=== PATIENT | female | born 1960 | race Caucasian/White ===

== ENCOUNTER 2021-11-01 12:51 | Emergency (ER) | payer OTHER, SELFPAY ==
[2021-11-01 12:52] VITALS: BP 157/99; PULSE 87; RESP 18; TEMP 36.9; O2SAT 98; BMI 46.5
--- NOTE | 2021-11-01 13:06 | XR_ITS ---
FINAL REPORT CLINICAL HISTORY: fall pain FINDINGS: RIGHT ANKLE Three views were obtained. There is an oblique fracture of the distal fibular metaphysis which is favored to be subacute. The joint spaces appear normal. Lateral soft tissue swelling is noted. There is a plantar calcaneal spur seen. IMPRESSION: Oblique fracture of the distal fibular metaphysis, favored to be subacute with lateral soft tissue swelling. Reviewed, Interpreted and Dictated by Avni De Paz III, MD Transcribed by Mikaela Harmon Authenticated by Avni De Paz III, MD on 11/01/2021 01:58:38 PM [facility]
--- NOTE | 2021-11-01 13:06 | XR_ITS ---
FINAL REPORT CLINICAL HISTORY: fall, pain FINDINGS: LEFT ANKLE Three views were obtained. There is no acute fracture or dislocation. Mild degenerative changes noted. There is a plantar calcaneal spur. There are soft tissue calcifications in the anterior lower leg. IMPRESSION: No acute process. Reviewed, Interpreted and Dictated by Avni De Paz III, MD Transcribed by Mikaela Harmon Authenticated by Avni De aPz III, MD on 11/01/2021 01:58:37 PM [facility]
--- NOTE | 2021-11-01 13:07 | XR_ITS ---
FINAL REPORT CLINICAL HISTORY: fall pain FINDINGS: RIGHT FOOT Three views were obtained. There is an oblique fracture of the distal fibular metaphysis. There is mild degenerative change. A plantar calcaneal spur is noted. No soft tissue abnormality is identified. IMPRESSION: Oblique fracture of the distal fibular metaphysis. Reviewed, Interpreted and Dictated by Avni De Paz III, MD Transcribed by Mikaela Harmon Authenticated by Avni De Paz III, MD on 11/01/2021 01:58:37 PM [facility]
--- NOTE | 2021-11-01 13:07 | XR_ITS ---
FINAL REPORT CLINICAL HISTORY: fall pain FINDINGS: LEFT FOOT Three views were obtained. There is no acute fracture or dislocation. There is mild degenerative change. There is a small plantar calcaneal spur noted. No soft tissue abnormality is identified. IMPRESSION: No acute process. Reviewed, Interpreted and Dictated by Avni De Paz III, MD Transcribed by Mikaela Harmon Authenticated by Avni De Paz III, MD on 11/01/2021 01:58:37 PM [facility]
--- NOTE | 2021-11-01 13:34 | HMH.EDGENADL ---
ED Disposition Clinical Impression: Fibula fracture Qualifiers: Encounter type: initial encounter Fibula location: distal Fracture type: closed Fracture morphology: unspecified fracture morphology Laterality: right Qualified Code(s): S82.831A - Other fracture of upper and lower end of right fibula, initial encounter for closed fracture Sprain of left foot Qualifiers: Encounter type: initial encounter Qualified Code(s): S93.602A - Unspecified sprain of left foot, initial encounter Disposition: Home, Self-Care Condition on Discharge: Good Instructions: DI for Ankle Fracture, DI for Foot Sprain, How to Use a Walking Boot Additional Instructions: Stay off of your injured right ankle is much as possible. Wear orthopedic boot whenever ambulating. Ice and elevate elevate your right lower extremity, ice 20 minutes 4-5 times a day. Percocet as needed for pain. Follow-up with Ortho since he within 1 week. Call today or Thursday to make appointment. Take your x-ray disc with you at the time of follow-up appointment. Additional instructions for CONTROLLED SUBSTANCES: You have been prescribed a medication that is a controlled substance. Controlled substances include pain medications known as opiates and sedative nerve medications known as benzodiazepines. Tramadol, fioricet, and gabapentin are also controlled substances. Some common opiates include: Codeine (such as Tylenol #3) Hydrocodone (Vicodin, Lortab, Lorcet, [place]) Oxycodone (Percocet, Percodan, Oxycodone, Oxy IR) Some common benzodiazepines include: Diazepam (Valium) Lorazepam (Ativan) Alprazolam (Xanax) Clonazepam (Klonopin) Oxazepam (Serax) All of these controlled substances are highly addictive and frequently abused. Misuse can and frequently does lead to addiction as well as overdose and . Medication should be stored in a locked cabinet or other secure storage unit. Do not store the medication in a motor vehicle. Short term supplies, 3 days or less, are prescribed because of the highly addictive nature of the medication. Any of the controlled substance medication NOT taken should be disposed of properly and NOT SAVED. The recommended method of disposing of unused medications is: Place the medicines in a sealable plastic bag. If the medicine is a solid, crush it or add water to dissolve it. Add something undesirable (cat litter, coffee grounds, etc.) Dispose of sealed bag in household trash Do not flush or pour unused medicines down a sink or drain. Controlled substances should not be shared, given away or sold. Because of the addictive nature and frequent abuse, these medications are sometimes stolen. These medications should be kept in a safe place where they cannot be stolen. Do not keep them in your car or purse. Lost or stolen prescriptions for controlled substances WILL NOT BE REFILLED in this emergency department, regardless of whether a police report was filed. Prescriptions: Oxycodone HCl/Acetaminophen [Percocet 5/325mg tablet] 1 tab PO Q6HP PRN #15 tablet PRN Reason: Moderate To Severe Pain Transmission Status: Received by [facility] Referrals: Provider,Referral, [Referring] - - Critical Care Critical Care Time: No Attestation: On 11/01/21, the high probability of a clinically significant, sudden or life threatening deterioration of the following system(s) required my full and direct attention, intervention and personal management. The time I documented below is in addition to time spent performing reported procedures but includes the following listed in this critical care notation. Medical Decision Making - Phill Inquiry Pt receiving controlled substance: Yes Phill was queried for this patient: Yes Risks and benefits of using a controlled substance: were discussed with pt by me Vital Signs: 11/01/21 12:52 Temperature 98.4 F Temperature Source Oral Pulse Rate [Radial] 87 Respiratory Rate 18
[2021-11-01 15:00] VITALS: BP 138/74; PULSE 78; RESP 18; TEMP 36.6; O2SAT 98
== END 2021-11-01 15:00 | disposition home or self-care (01) ==
PROVIDERS: Emergency Provider Emergency Medicine; PCP Pediatrics
DX: S82.831A Other fracture of upper and lower end of right fibula, initial encounter for closed fracture (principal); W10.9XXA Fall (on) (from) unspecified stairs and steps, initial encounter; Y92.019 Unspecified place in single-family (private) house as the place of occurrence of the external cause; K21.9 Gastro-esophageal reflux disease without esophagitis; G43.709 Chronic migraine without aura, not intractable, without status migrainosus; F41.9 Anxiety disorder, unspecified
CPT/HCPCS: 29515; 73610; 73630; 99283

== ENCOUNTER 2023-09-09 18:07 | Outpatient (CLI) | payer OTHER, SELFPAY ==
[2023-09-11 19:09] LABS: Alanine Aminotransferase 22 U/L (12-78); Albumin Level 4.3 g/dl (3.5-5.0); Albumin/Globulin Ratio 1.7 (1.1-1.8); Alkaline Phosphatase 126 U/L (38-126); Anion Gap 11.8 mEq/L (5-15); Aspartate Amino Transferase 52 U/L (14-36); Bilirubin,Total 0.8 mg/dl (0.2-1.3); Blood Urea Nitrogen 12 mg/dl (7-17); Calcium 9.4 mg/dl (8.4-10.2); Carbon Dioxide 24 mmol/L (22.0-30.0); Chloride 100 mmol/L (98-107); Chol/HDL Ratio 1.8 (1-3.5); Cholesterol 184 mg/dl (140-200); Estimated Glomerular Filt Rate 101 ml/min (>60); GFR (African American) 123 ML/MIN (>60); Globulin 2.6 g/dL (1.3-3.2); Glucose 105 mg/dl (74-100); HDL Cholesterol 101 mg/dl (40-60); Potassium 4.8 mmoL/L (3.5-5.1); Sodium 131 mmol/L (136-145); Total Protein,Serum 6.9 g/dl (6.3-8.2); Triglycerides 65 mg/dl (30-150); VLDL Cholesterol 13 mg/dL (0-40)
[2023-09-11 19:21] LABS: Direct LDL Cholesterol 61.72 mg/dL (100-129)
[2023-09-11 19:24] LABS: 25-OH Vitamin D, Total 32.1 ng/mL (30-100)
[2023-09-11 19:40] LABS: Thyroid Stimulating Hormone 2.15 uIU/mL (0.465-4.68)
[2023-09-11 20:01] LABS: Vitamin B12 < 159 pg/mL (239-931)
[2023-09-11 21:04] LABS: Creatinine,Urine Random 41 mg/dL (Not Estab.); Microalbumin < 6.000 mg/L (0-16.7)
== END 2023-09-09 23:59 ==
LOC: LAB.DROPOF 09-11 18:07
PROVIDERS: PCP Nurse Practitioner; Visit Provider Nurse Practitioner
DX: I10 Essential (primary) hypertension (principal); E78.5 Hyperlipidemia, unspecified; G89.29 Other chronic pain; M54.50 Low back pain, unspecified; M19.90 Unspecified osteoarthritis, unspecified site; M54.9 Dorsalgia, unspecified; M25.561 Pain in right knee; M25.562 Pain in left knee; E53.8 Deficiency of other specified B group vitamins; E66.9 Obesity, unspecified; Z68.43 Body mass index [BMI] 50.0-59.9, adult; Z79.899 Other long term (current) drug therapy
CPT/HCPCS: 80053; 80061; 82043; 82306; 82570; 82607; 84443

== ENCOUNTER 2023-09-21 18:17 | Outpatient (CLI) | payer OTHER, MEDICAID, SELFPAY ==
[2023-09-21 18:29] LABS: Basophils % 0.4 % (0.1-2.0); Eosinophils # 0.3 K/mm3 (0.0-0.4); Eosinophils % 4.6 % (0.1-12.0); Hematocrit 36.5 % (37.0-47.0); Hemoglobin 11.6 g/dL (12.2-16.2); Lymphocytes # 1.3 K/mm3 (0.7-4.5); Lymphocytes % 21.3 % (10-50); Mean Corpuscular HGB Conc 31.7 g/dL (31.8-35.4); Mean Corpuscular Hemoglobin 29.7 pg (27.0-31.2); Monocytes # 0.4 K/mm3 (0.1-1.0); Monocytes % 6.3 % (1.7-9.3); Neutrophils # 4.2 K/mm3 (1.8-7.8); Neutrophils % 67.5 % (37.0-80.0); Platelet Count 295 K/mm3 (142-424); Red Blood Count 3.89 M/mm3 (4.20-5.40); Red Cell Distribution Width 15.5 % (11.5-17.5); White Blood Count 6.2 K/mm3 (4.8-10.8)
[2023-09-21 19:17] LABS: Hemoglobin A1C 5.3 % (4.0-6.0)
== END 2023-09-21 23:59 ==
PROVIDERS: PCP Nurse Practitioner; Visit Provider Nurse Practitioner
DX: I10 Essential (primary) hypertension (principal); E78.5 Hyperlipidemia, unspecified; E66.9 Obesity, unspecified; G89.29 Other chronic pain; M54.9 Dorsalgia, unspecified; M19.90 Unspecified osteoarthritis, unspecified site; Z68.43 Body mass index [BMI] 50.0-59.9, adult
CPT/HCPCS: 83036; 85025

== ENCOUNTER → 2023-10-15 14:00 | Outpatient (CLI) | payer OTHER, MEDICAID, SELFPAY | LOC: SL 14:01 | PROVIDERS: PCP Nurse Practitioner; Visit Provider Nurse Practitioner | DX: G47.33 Obstructive sleep apnea (adult) (pediatric) (principal); G47.36 Sleep related hypoventilation in conditions classified elsewhere; G47.00 Insomnia, unspecified; E66.9 Obesity, unspecified; Z68.43 Body mass index [BMI] 50.0-59.9, adult | CPT/HCPCS: G0399 ==

== ENCOUNTER 2023-10-26 07:26 | Outpatient (CLI) | payer OTHER, MEDICAID, SELFPAY ==
--- NOTE | 2023-10-26 07:29 | FL_ITS ---
FINAL REPORT CLINICAL HISTORY: diarrhea, weight gain hx of gastric bypass 3.41 min DAP 9120.19 FINDINGS: UPPER GI WITH SBFT HISTORY: Acute epigastric pain with diarrhea. Weight gain. PROCEDURE: The patient ingested barium. Spot and overhead films were obtained. Additional barium was administered for a SBFT. Number of images: 32 Fluoro time: 3 minutes 41 seconds DAP: 9120.19 uGym2. FINDINGS: UGI: The esophagus is normal. There is no hiatal hernia. There was minimal gastroesophageal reflux to the midesophagus. Esophageal dysmotility was demonstrated during the exam. The rugal fold pattern of the stomach is normal. The duodenal bulb is normal. SBFT: The ic engineer film is normal. There is no evidence of obstruction. The mucosal fold pattern is normal. The terminal ilium is normal. IMPRESSION: Esophageal dysmotility. Minimal gastroesophageal reflux. Unremarkable small bowel follow-through. Films reviewed , interpreted and dictated by Dr. Dee. Transcribed by Oj Aguiar PA-C Reviewed, Interpreted and Dictated by Nicanor Dee MD Transcribed by ENIO Peterson Authenticated and [facility]
[2023-10-26] MEDS: BARIUM SULFATE (E-Z-HD 340GM);135ML BOTTLE 135 ML PO (10:38)
[2023-10-26] MEDS: BARIUM SULFATE(LIQUID E-Z-PAQUE);355ML BOTTLE 355 ML PO (10:38)
[2023-10-26] MEDS: DIATRIZOATE MEG 66% & DIATRIZOATE NA 10% 30ML UDC 15 ML PO (10:38)
== END 2023-10-26 23:59 | disposition home or self-care (01) ==
LOC: RAD 07:26
PROVIDERS: PCP Nurse Practitioner; Visit Provider Family Medicine
DX: Z98.84 Bariatric surgery status (principal)
CPT/HCPCS: 74246; 74248

== ENCOUNTER 2024-02-18 19:55 | Outpatient (CLI) | payer OTHER, MEDICAID, SELFPAY ==
[2024-02-18 20:31] LABS: Basophils % 0.3 % (0.1-2.0); Eosinophils # 0.2 K/mm3 (0.0-0.4); Hematocrit 36.9 % (37.0-47.0); Hemoglobin 11.8 g/dL (12.2-16.2); Lymphocytes # 1.2 K/mm3 (0.7-4.5); Lymphocytes % 22.8 % (10-50); Mean Corpuscular Hemoglobin 28.7 pg (27.0-31.2); Mean Corpuscular Volume 89.7 fl (81-99); Mean Platelet Volume 9.3 fl (7.4-10.4); Monocytes # 0.3 K/mm3 (0.1-1.0); Neutrophils # 3.5 K/mm3 (1.8-7.8); Neutrophils % 66.9 % (37.0-80.0); Platelet Count 303 K/mm3 (142-424); Red Blood Count 4.11 M/mm3 (4.20-5.40); Red Cell Distribution Width 15.8 % (11.5-17.5); White Blood Count 5.2 K/mm3 (4.8-10.8)
[2024-02-18 21:30] LABS: Alanine Aminotransferase 20 U/L (12-78); Albumin Level 3.8 g/dl (3.5-5.0); Albumin/Globulin Ratio 1.4 (1.1-1.8); Alkaline Phosphatase 115 U/L (38-126); Anion Gap 9.7 mEq/L (5-15); Aspartate Amino Transferase 24 U/L (14-36); Bilirubin,Total 0.6 mg/dl (0.2-1.3); Blood Urea Nitrogen 10 mg/dl (7-17); Calcium 9.1 mg/dl (8.4-10.2); Carbon Dioxide 28 mmol/L (22.0-30.0); Chloride 98 mmol/L (98-107); Chol/HDL Ratio 1.5 (1-3.5); Cholesterol 153 mg/dl (140-200); Estimated Glomerular Filt Rate 125 ml/min (>60); GFR (African American) 151 ML/MIN (>60); Globulin 2.7 g/dL (1.3-3.2); Glucose 105 mg/dl (74-100); HDL Cholesterol 102 mg/dl (40-60); Potassium 4.7 mmoL/L (3.5-5.1); Sodium 131 mmol/L (136-145); Total Protein,Serum 6.5 g/dl (6.3-8.2); Triglycerides 66 mg/dl (30-150); VLDL Cholesterol 13 mg/dL (0-40)
[2024-02-18 21:41] LABS: Direct LDL Cholesterol 41.58 mg/dL (100-129)
[2024-02-18 21:45] LABS: 25-OH Vitamin D, Total 18.8 ng/mL (30-100)
[2024-02-18 22:18] LABS: Vitamin B12 256 pg/mL (239-931)
== END 2024-02-18 23:59 | disposition home or self-care (01) ==
LOC: LAB.DROPOF 19:57
PROVIDERS: PCP Nurse Practitioner; Visit Provider Nurse Practitioner
DX: I10 Essential (primary) hypertension (principal); E78.5 Hyperlipidemia, unspecified; E66.2 Morbid (severe) obesity with alveolar hypoventilation; Z68.43 Body mass index [BMI] 50.0-59.9, adult; M19.90 Unspecified osteoarthritis, unspecified site; E53.8 Deficiency of other specified B group vitamins
CPT/HCPCS: 80053; 80061; 82306; 82607; 85025

== ENCOUNTER 2024-04-11 09:29 | Outpatient (CLI) | payer OTHER, MEDICAID, SELFPAY ==
--- NOTE | 2024-04-11 09:29 | MM_ITS ---
PROCEDURE INFORMATION: Exam: MG Bilateral Screening 3D Mammography Exam date and time: 04/11/2024 9:37 AM Age: 64 years old Clinical indication: Screening exam. TECHNIQUE: Imaging protocol: Bilateral Screening tomosynthesis and 2D mammography including computer-aided detection (CAD) when performed. COMPARISON: No relevant prior studies available. FINDINGS: MAMMOGRAPHY: Breast composition: There are scattered areas of fibroglandular density. Mass: No suspicious masses. Architectural distortion: None. Calcifications: No suspicious calcifications. Asymmetric density: None. Skin thickening: None. Axillary adenopathy: None. IMPRESSION: No mammographic evidence of malignancy. Annual screening is recommended unless otherwise clinically indicated. ASSESSMENT: BI-RADS Category 1: Negative.
== END 2024-04-11 23:59 | disposition home or self-care (01) ==
LOC: RAD 09:29
PROVIDERS: PCP Family Medicine; Visit Provider Family Medicine
DX: Z12.31 Encounter for screening mammogram for malignant neoplasm of breast (principal)
CPT/HCPCS: 77063; 77067

== ENCOUNTER 2024-06-06 12:50 | Outpatient (CLI) | payer OTHER, MEDICAID, SELFPAY ==
--- NOTE | 2024-06-06 | CA_ITS ---
APPROVED REPORT Exam: Pharmacologic Technologist: Kay Lopez Ht: 5 ft 6 in Wt: 364 lbs BSA: 2.58 m2 HR: 86 bpm BP: 155/64 mmHg Stress Test Details Test: Lexiscan HR Resting HR: 86 bpm Max Heart Rate (APMHR): 157.394424 bpm Max HR Achieved: 97 bpm Target HR (85% APMHR): 133.794343 bpm % of APMHR: 61.78 Recovery HR: 92 bpm BP Resting BP: 155.0/64.0 mmHg Max BP: 155.0/64.0 mmHg Recovery BP: 137.0/59.0 mmHg ECG Resting ECG: Sinus rhythm Stress ECG Conclusion Symptoms: None Arrhythmias/Ectopy: None ST-T Changes: None Electronically signed by : Christin Zimmerman MD 06/07/2024 11:45:16
--- NOTE | 2024-06-06 12:51 | NM_ITS ---
APPROVED REPORT Exam: Nuclear Stress Test Indication: htn, c.p., sob Patient Location: Outpatient Stress Tech: Kay Lopez NM Tech:Carrie Shaw NAVDEEP RT (R)(N)(M) Ht: 5 ft 6 in Wt: 360 lbs Bra Size: 54c HR: 89 bpm BP: 155/64 mmHg BSA: 2.57 m2 TID: 1.11 BMI: 58.0 History: htn, c.p., sob pt can not lay on tomach for prone images Procedure: Patient received 0.4 mg of intravenous Lexiscan, resting heart rate 89 bpm, resting blood pressure 155/64 mmHg, with Lexiscan maximum heart rate achieved was 97 bpm which is % of the maximum predicted heart rate and blood pressure was 141/64 mmHg. With Lexiscan, patient denied any complaint of chest pain. Cardiac Stress and Resting SPECT Images: Cardiac Stress and Resting SPECT images were obtained using technetium 99m Myoview 32.1 mCi stress and 10.28 mCi at rest. The patient could not lie on her abdomen. Therefore, prone stress imaging could not be performed. This may affect the diagnostic interpretation of the study findings. Resting and stress imaging in supine positions demonstrate no evidence of fixed or reversible perfusion defects. Gated imaging demonstrates normal global and regional LV systolic function. LVEF is calculated at 67%. Conclusion: No evidence of fixed or reversible perfusion defects. Gated imaging demonstrates normal global and regional LV systolic function. LVEF is calculated at 67%. Electronically signed by : Christin Zimmerman MD 06/07/2024 11:46:17
--- NOTE | 2024-06-06 12:51 | XR_ITS ---
PROCEDURE INFORMATION: Exam: XR Chest Exam date and time: 06/06/2024 1:12 PM Age: 64 years old Clinical indication: Pain; Other: Cp; Additional info: Chest pain TECHNIQUE: Imaging protocol: Radiologic exam of the chest. Views: 2 views. COMPARISON: CR FL UPPER GI SMALL BOWEL 10/26/2023 9:58 AM FINDINGS: Lungs: Lungs are well aerated without a focal area of consolidation. Lungs are well aerated without a focal area of consolidation. Pleural spaces: Unremarkable. No pleural effusion. No pneumothorax. Heart/Mediastinum: The cardiac silhouette is enlarged, Bones/joints: Unremarkable. Soft tissues: Mild soft tissue prominence in the right paratracheal region likely related to positioning. Follow-up suggested. IMPRESSION: Lungs are well aerated without a focal area of consolidation. See above. Consider short-term follow-up.
[2024-06-06] MEDS: SODIUM CHLORIDE 0.9% 10ML SYR (RAD ONLY) 10 ML IV ×2 (13:10→14:15)
[2024-06-06] MEDS: REGADENOSON 0.4MG/5ML SYRINGE 0.4 MG IV (14:15)
[2024-06-06] MEDS: ISOTOPE MYOVIEW (PER STUDY) 1 DOSE IV (14:49)
== END 2024-06-06 23:59 | disposition home or self-care (01) ==
LOC: RAD 12:51
PROVIDERS: PCP Family Medicine; Visit Provider Family Medicine
DX: R06.00 Dyspnea, unspecified (principal); R07.9 Chest pain, unspecified
CPT/HCPCS: 71046; 78452; 93017; 93018; A9502; J2785

== ENCOUNTER 2024-07-11 14:22 | Outpatient (CLI) | payer OTHER, MEDICAID, SELFPAY ==
[2024-07-11 15:25] VITALS: PULSE 87; PULSE 92
[2024-07-11] MEDS: ALBUTEROL 0.083% 2.5 MG/3 ML NEB IH (15:30)
== END 2024-07-11 23:59 | disposition home or self-care (01) ==
LOC: RT 14:22
PROVIDERS: PCP Family Medicine; Visit Provider Nurse Practitioner Family
DX: R06.00 Dyspnea, unspecified (principal)
CPT/HCPCS: 94060; 94640; 94727; 94729; J7613

== ENCOUNTER 2024-08-08 11:10 | Outpatient (CLI) | payer MEDICAID, SELFPAY ==
--- NOTE | 2024-08-08 11:13 | XR_ITS ---
FINAL REPORT CLINICAL HISTORY: Foot pain sore of right foot x 4 month 1 previous ankle surgery COMPARISON: None FINDINGS: RIGHT FOOT 3 views of the right foot were obtained. There is no acute fracture or dislocation. There is an orthopedic sideplate and screws present in the distal fibula. A moderate-sized plantar spur is identified. Visualized joint spaces are normally aligned. Soft tissues are unremarkable. IMPRESSION: No acute bony abnormality. Reviewed, Interpreted and Dictated by Nicanor Dee MD Transcribed by Vale Degroot Authenticated and [facility]
== END 2024-08-08 23:59 | disposition home or self-care (01) ==
LOC: RAD 11:11
PROVIDERS: PCP Family Medicine; Visit Provider Podiatrist
DX: M79.671 Pain in right foot (principal)
CPT/HCPCS: 73630

== ENCOUNTER 2024-09-02 11:51 | Outpatient (CLI) | payer MEDICAID, SELFPAY ==
[2024-09-02 11:54] LABS: Anti-Centromere B Antibodies ND; Anti-DNA (DS) Ab Qn ND; Anti-Jo-1 ND; Antichromatin Antibodies ND; Antiscleroderma-70 Antibodies ND; RNP Antibodies ND; Sjogren's Anti-SS-A ND; Sjogren's Anti-SS-B ND
[2024-09-02 21:35] LABS: C-Reactive Protein 1.6 mg/L (0-4)
[2024-09-05 13:10] LABS: Antinuclear Antibodies (ANA) Negative (Negative)
[2024-09-06 20:21] LABS: Rheumatoid Factor IGM < 7 U (<7)
== END 2024-09-02 23:59 | disposition home or self-care (01) ==
LOC: LAB 11:52
PROVIDERS: PCP Family Medicine; Visit Provider Internal Medicine Pulmonary Disease
DX: J84.9 Interstitial pulmonary disease, unspecified (principal); R06.09 Other forms of dyspnea
CPT/HCPCS: 36415; 86038; 86140; 86225; 86235; 86431

== ENCOUNTER 2024-11-14 12:49 | Outpatient (CLI) | payer MEDICAID, SELFPAY ==
--- NOTE | 2024-11-14 13:00 | CT_ITS ---
FINAL REPORT TECHNIQUE: Thin section axial images were obtained from the lung apices through the upper abdomen without contrast. This study was performed with techniques to keep radiation doses as low as reasonably achievable (ALARA). Individualized dose reduction techniques using automated exposure control or adjustment of mA and/or kV according to the patient's size were employed. CLINICAL HISTORY: .INTERSTITIAL LUNG DISEASE COMPARISON: None FINDINGS: HIGH RESOLUTION CT CHEST: There is no mediastinal, hilar, or axillary lymphadenopathy. No pleural or pericardial effusion. The lungs are clear. There is evidence of prior granulomatous disease. No consolidation is present. High-resolution images using supine inspiration, supine expiration, and prone inspiration views were obtained. There is no interlobular septal thickening, no evidence of fibrosis or bronchiectasis. No air trapping is noted. Limited, unenhanced evaluation of the upper abdomen is without acute abnormality. There are postoperative changes present in the stomach. There is no acute osseous abnormality. IMPRESSION: No acute intrathoracic abnormality. High-resolution images reveal no interlobular septal thickening, no evidence of interstitial fibrosis, bronchiectasis, or air trapping. Reviewed, Interpreted and Dictated by Layne Contreras MD Transcribed by Vale Degroot Authenticated and [facility]
== END 2024-11-14 23:59 | disposition home or self-care (01) ==
LOC: RAD 12:50
PROVIDERS: PCP Family Medicine; Visit Provider Internal Medicine Pulmonary Disease
DX: J84.9 Interstitial pulmonary disease, unspecified (principal)
CPT/HCPCS: 71250

== ENCOUNTER 2024-12-13 12:48 | Outpatient (CLI) | payer MEDICAID, SELFPAY ==
[2024-12-13 14:05] VITALS: BMI 60.5
== END 2024-12-13 23:59 | disposition home or self-care (01) ==
LOC: DIETICIAN 12:49
PROVIDERS: PCP Family Medicine; Visit Provider Nurse Practitioner
DX: G47.33 Obstructive sleep apnea (adult) (pediatric) (principal); E66.9 Obesity, unspecified; Z68.43 Body mass index [BMI] 50.0-59.9, adult
CPT/HCPCS: 97802

== ENCOUNTER 2025-01-02 10:12 | Outpatient (CLI) | payer MEDICAID, SELFPAY ==
--- OUTSIDE RECORDS SUMMARY | 2013-04-26 20:00 | XMS_ITS | Continuity of Care Document ---
Author Organization [facility] Practice Address [address] [place] [address] Care Team Providers Care Licensed Loan Officer Assistant Name Role Phone Wagner Liu MD Unavailable Unavailable Advance Directives Directive Yes / No Effective Date File Name No Information Encounters Encounter Description Practice Location Reason(s) For Visit Diagnoses Date Provider Providers Copied on Encounter [facility], [facility] [facility] [address], [place], [place], [id number], [place] [facility] [address] No Information Noe Edward. [address] [facility], [place], [place], [id number], [place]. tel:[phone] Family History Family Member Type Diagnosis Age At Onset MOTHER Problem (finding) diabetes GRANDPARENT Problem (finding) diabetes Payers Payer name Insurance type Covered constitution party ID Authoriza tion(s) No Information Social History Type Description Quantity Date Captured Comments Sex Female Smoking Status No Information Chief Complaint And Reason For Visit No Information Reason For Referral Reason For Referral No Information History Of Present Illness Encounter Date Complaint History Of Prese nt Illness No Information Functional Status Date Functional Assessmen t No Information Instructions Date Instruction Additional Infor mation No Information Assessments Type Assessment Date No Information Patient Care Teams Name Effective Dates (start - stop) Status Members No Information
--- OUTSIDE RECORDS SUMMARY | 2023-04-27 08:00 | XMS_ITS | Encounter Summary ---
Author Organization [place] [address] Care Team Providers Care Ad Trafficker Name Role Phone Judy Mars APRN Primary Care Provider [phone] Reason for Visit * Oncology Medication Prior Authorization (Routine) - Closed Specialty Diagnoses / Procedures Referred By Contac t Referred To Contact Oncology Diagnoses Postsurgical malabsorption Iron deficiency anemia, unspecified iron deficiency anemia type H/O: iron deficiency anemia S/P gastric bypass Procedures [place] IRON SUCROSE INJECTION Judy Mars APRN [address] [place] [address] Phone: tel: fax: [address] [place] [address] Phone: tel: fax: Referral ID Status Reason Start Date Expiration Date Visits Re quested Visits Authorized [id number] Closed 03/05/2023 03/04/2024 1 99 Encounter Details Date Type Department Care Team (Late st Contact Info) Description 04/27/2023 8:00 AM EDT Hospital Encounter [address] [place] [address] Excused Social History Tobacco Use [...] Date Recorded PHQ-2 Total Score 0 10/17/2022 [facility] of Occupat ional [facility] - Occupational Stress Questionnaire Answer Date [...] Care Team (Late st Contact Info) Description 02/28/2025 3:30 PM EDT Office Visit [facility] [address] [place] [address] Hodan Hinkle APRN [address] [place] [address] documented as of this encounter [...] on filedocumented in this encounter Care Teams Ad Trafficker Relationship Specialty Start Date End Date Judy Mars APRN [address] [place] [address] PCP - General Nurse Practitioner-Family 07/17/1709/12 documented as of this encounter
[2025-01-02 18:24] LABS: Basophils % 0.5 % (0.1-2.0); Eosinophils % 4.6 % (0.1-12.0); Hematocrit 31.9 % (37.0-47.0); Hemoglobin 9.6 g/dL (12.2-16.2); Lymphocytes % 16.6 % (10-50); Mean Corpuscular HGB Conc 30.1 g/dL (31.8-35.4); Mean Corpuscular Hemoglobin 23.5 pg (27.0-31.2); Mean Corpuscular Volume 78.2 fl (81-99); Monocytes % 6.9 % (1.7-9.3); Neutrophils % 70.9 % (37.0-80.0); Platelet Count 298 K/mm3 (142-424); Red Blood Count 4.08 M/mm3 (4.20-5.40); Red Cell Distribution Width 18.3 % (11.5-17.5); Red Cell Distribution Width-SD 50.9 fL; White Blood Count 5.7 K/mm3 (4.8-10.8)
[2025-01-02 18:25] LABS: Eosinophils # 0.3 Kmm3 (0.0-0.4); Immature Granulocytes # 0.03 10^3uL; Immature Granulocytes % 0.5 %; Lymphocytes # 0.9 K/mm3 (0.7-4.5); Monocytes # 0.4 K/mm3 (0.1-1.0); Nucleated Red Blood Cells # 0 10^3/uL; Nucleated Red Blood Cells % 0 %
[2025-01-02 18:54] LABS: Alanine Aminotransferase 16 U/L (12-78); Albumin Level 4.5 g/dl (3.5-5.0); Albumin/Globulin Ratio 1.6 (1.1-1.8); Alkaline Phosphatase 121 U/L (38-126); Anion Gap 7.9 mEq/L (5-15); Aspartate Amino Transferase 23 U/L (14-36); Bilirubin,Total 0.7 mg/dl (0.2-1.3); Blood Urea Nitrogen 8 mg/dl (7-17); Calcium 9.6 mg/dl (8.4-10.2); Carbon Dioxide 29 mmol/L (22.0-30.0); Chloride 92 mmol/L (98-107); Cholesterol 171 mg/dl (140-200); Estimated Glomerular Filt Rate 101 ml/min (>60); GFR (African American) 122 ML/MIN (>60); Globulin 2.9 g/dL (1.3-3.2); Glucose 113 mg/dl (74-100); Potassium 4.9 mmoL/L (3.5-5.1); Sodium 124 mmol/L (136-145); Total Protein,Serum 7.4 g/dl (6.3-8.2); Triglycerides 61 mg/dl (30-150); VLDL Cholesterol 12 mg/dL (0-40)
[2025-01-02 19:07] LABS: Direct LDL Cholesterol 40.96 mg/dL (100-129)
[2025-01-02 19:10] LABS: Creatinine,Urine Random 57 mg/dL (Not Estab.); Microalbumin < 6.000 mg/L (0-16.7)
[2025-01-02 19:13] LABS: 25-OH Vitamin D, Total 21.6 ng/mL (30-100)
[2025-01-02 19:25] LABS: Thyroid Stimulating Hormone 3.06 uIU/mL (0.465-4.68)
[2025-01-02 19:35] LABS: HIV Combo NEGATIVE (Negative)
[2025-01-02 19:42] LABS: Hepatitis C Ab Qual. W/ RFX NEGATIVE (Negative)
[2025-01-02 19:44] LABS: Vitamin B12 414 pg/mL (239-931)
[2025-01-02 20:08] LABS: Hemoglobin A1C 6.2 % (4.0-6.0)
[2025-01-02 22:30] LABS: Chol/HDL Ratio 1.6 (1-3.5); HDL Cholesterol 109 mg/dl (40-60)
[2025-01-04 05:10] LABS: Hepatitis B Surface Antigen Negative (Negative)
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
--- OUTSIDE RECORDS SUMMARY | 2025-01-04 10:15 | XMS_ITS | Encounter Summary ---
Author Organization [place] [address] Care Team Providers Care Art Instructor Name Role Phone Heidi Childress APRN Primary Care Provider [phone] Reason for Visit * Reason Comments Medication Refill Encounter Details Date Type Department Care Team (Late st Contact Info) Description 11/07/2024 Refill [facility] Infectious Disease [facility] [address] [facility] [address] [place] [id number] Sierra Childress, [address] [place] [address] Medication Refill Social History Tobacco Use Types Packs/Day Years [...] Date Recorded PHQ-2 Total Score 0 10/17/2022 [facility] - Occupational Stress Questionnaire Answer Date Recorded [...] of Assessment Author No 10/17/2022 7:59 AM Vinaey Wiggins CCMA * Because of a physical, mental or emotional condition, does this person have difficulty doing errands alone such as visiting a doctor's office or shopping? Answer Date of Assessment Author No 10/17/2022 7:59 AM Vianey Wiggins CCMA documented as of this encounter Mental [...] Description 02/28/2025 3:30 PM EDT Office Visit Nicole CHAVEZ [address] [place] [address] Hodan Hinkle APRN [address] [place] [address] documented as of this encounter [...] documented as of this encounter Visit Diagnoses Diagnosis Peripheral edema Edema Pulmonary hypertension (HCC) Other chronic pulmonary heart diseases documented in this encounter Care Teams Art Instructor Relationship Specialty Start Date End Date Heidi Childress APRN [address] [facility] [address] [place] [address] PCP - General Nurse Practitioner 12/04/23 documented as of this encounter
--- OUTSIDE RECORDS SUMMARY | 2025-01-04 10:15 | XMS_ITS | Clinical Summary ---
Author Organization [facility] BUSINESS OFFICE Address [address] [address] Care Team Providers Care Government Professor Name Role Phone Heidi Childress APRN Primary Care Provider [phone] Allergies Active Allergy Reactions Criticality Noted Date Comments Morphine Nausea And Vomiting High 06/30/2017 Medications nystatin (MYCOSTATIN) Top Powder Apply topically 3 times daily for 14 days. 15 g 2 2 Active cyanocobalamin 100 mcg Oral Tablet Take 1 Tablet by mouth once daily. 30 Tablet 3 3 Active buPROPion (WELLBUTRIN XL) 150 mg Oral Tablet Sustained Release 24 hrIndications:Moo d disorder,Bipolar disorder, current episode depressed, moderate (HCC) Take 1 Tablet by mouth every morning. 90 Tablet 3 3 Active atorvastatin (LIPITOR) 10 mg Oral TabletIndications :Bilateral carotid artery stenosis Take 1 Tablet by mouth daily. 90 Tablet 3 3 Active hydroCHLOROthiazi de 25 mg Oral TabletIndications :Peripheral edema,Pulmonary hypertension (HCC) Take 1 Tablet by mouth daily. 30 Tablet 2 3 Active cariprazine (VRAYLAR) 1.5 mg Oral CapsuleIndication s:Mood disorder,Bipolar disorder, current episode depressed, moderate (HCC) Take 1 Capsule by mouth daily. 90 Capsule 3 4 Active LORazepam (ATIVAN) 0.5 mg Oral TabletIndications :Generalized anxiety disorder Take 1 Tablet by mouth twice daily as needed for anxiety. NO MORE THAN 45 TABLETS IN 30 DAYS 45 Tablet 4 Active meloxicam (MOBIC) 15 mg Oral TabletIndications :Injury of left knee, initial encounter Take 1 Tablet by mouth once daily. 30 Tablet 2 4 Active cholestyramine (QUESTRAN) 4 gram Oral Powder in PacketIndications :Functional diarrhea,Irritabl e bowel syndrome with diarrhea Take 1 Packet by mouth daily. 90 Packet 3 4 Active diclofenac (VOLTAREN) 1 % Top GelIndications:S/ P total knee arthroplasty, right Apply 2 grams topically twice daily as needed 1 Each 2 4 Active VITAMIN D3 125 mcg (5,000 unit) Oral Tablet Take 1 tablet by mouth once daily. 30 Tablet 2 4 Active ergocalciferol (DRISDOL) 1,250 mcg (50,000 unit) Oral Capsule Take 1 Capsule by mouth once a week. 12 Capsule 4 Active rOPINIRole (REQUIP) 4 mg Oral TabletIndications :Restless legs syndrome (RLS) Take 1 Tablet by mouth nightly. 30 Tablet 4 Active diphenoxylate-atr opine (LOMOTIL) 2.5-0.025 mg Oral TabletIndications :Functional diarrhea,Irritabl e bowel syndrome with diarrhea Take 1 Tablet by mouth 2 times daily. 60 Tablet 5 4 Active Active Problems Problem Noted Date Diagnosed Date Fibula fracture 07/07/2023 Sprain of left foot 07/07/2023 S/P total knee replacement, right 05/15/2023 Pulmonary hypertension 02/18/2023 Overview (03/05/2023): Improved on hctz Encouraged sleep study Bilateral carotid artery stenosis 01/22/2023 Primary osteoarthritis of right knee 01/16/2023 Overview (01/16/2023): Added automatically from request for surgery [id number] Primary osteoarthritis of both knees 01/06/2023 Restless legs syndrome (RLS) 10/17/2022 Heart murmur 10/17/2022 Generalized anxiety disorder 05/21/2021 Overview (07/07/2023): Sig anxiety with traveling. Makes her physically ill. Has seen huge imporvement since starting ativan. Is driving now. Still very difficult to ride as passenger so gave verbal today to take extra dose of ativan if she has to ride with someone. Tried and failed buspar and vistaril CSA on file HB-1 up to date Last Successful PDMP Review: 07/07/2023 2:48 PM by Judy Mars APRN Assessment & Plan (05/21/2021 1:46 PM EST): If drug screen is negative, will send prescription and she will follow-up in one month to determine effectiveness. Chronic diarrhea 07/11/2020 Overview (10/17/2022): Hx of sphincter surgery years ago. S/p gastric bypass Has malabsorption. Followed by GI and now on Lomotil and Questran Iron deficiency anemia, unspecified 04/05/2020 Overview (03/05/2023): S/p gastric bypass with malabsorption, iron infusion ordered H/O: iron deficiency anemia 04/05/2020 Postsurgical nonabsorption 04/05/2020 Chronic left-sided low back pain with left-sided sciatica 08/10/2018 Overview (08/10/2018): Referral to spine center. Intolerance to NSAIDS. May benefit with trigger injection. Postsurgical malabsorption 07/27/2017 Malnutrition following gastrointestinal surgery 07/22/2017 Vitamin D deficiency 07/21/2017 Overview (03/02/2020): On replacement. Vitamin B12 deficiency 07/21/2017 Overview (10/17/2022): On replacement. Mood disorder 07/17/2017 Overview (05/21/2021): Question if there is some underlying bipolar due to extreme mood changes. Depression controlled with wellbutrin vraylar effective at managing agitation and labile mood. Continue both Failed paxi and viibryd effexor effective in past but didn't like side effects. Assessment & Plan (12/14/2020 11:23 AM EDT): Continue wellbutrin Stop seroquel since her symptoms are worse Given samples of vraylar. If effective, will file PA Referral for counseling. followup in 4-6 weeks. Insomnia 07/17/2017 S/P hysterectomy 07/17/2017 Overview (03/02/2020): Total hysterectomy S/P gastric bypass 07/17/2017 Family history of diabetes mellitus 07/17/2017 Family history of esophageal cancer 07/17/2017 Morbid obesity with BMI of 40.0-44.9, adult 11/2017 Overview (10/17/2022): Discussed lifestyle modiciation. Working on healthier diet. Resolved Problems Problem Noted Date Diagnosed Date Resolved Date Closed displaced fracture of lateral malleolus of right fibula 11/05/2021 10/17/2022 Overview (11/05/2021): Added automatically from request for surgery [id number] Iron deficiency anemia due t o chronic blood loss 07/27/2017 03/01/2020 Iron deficiency anemia 07/17/201710/17 Assessment & Plan (03/02/2020 10:23 AM EDT): Chronic fatigue. No orthostatic symptoms Will get labs from former PCP, [facility]. If sig anemia, will get her set up with iron infusion Elevated blood pressure reading 07/17/2017 08/10/2018 Overview (07/17/2017): Asymptomatic - recheck 4 weeks. Encounters Date Type Department Care Team Description 11/30/2024 Refill [facility] [address] [address] Rob Del Rosario MD Medication Refill 11/07/2024 Refill [facility] [address] [facility] [address] [place] [id number] Sierra Childress, TAMI Medication Refill from Last 3 Months Immunizations Immunization Administration Dates Next Due Hepatitis A, Unspecified Formulation 04/27/2018 Influenza Patient Reported 04/27/2018 Influenza Vaccine Quadrivalent 04/17/2020 Influenza Vaccine Quadrivalent Mdck Cell Derived 04/17/2020 Influenza Vaccine Quadrivalent PF 07/07/2023,09/2017 Influenza Vaccine, Unspecified Formulation 04/27 Influenza Virus Vaccine Quadrivalant, Flublok Moderna SARS-CoV-2 Vaccine 12+ Yrs (Light blue b order) 10/16/2020,09/20/2020 Tdap 10/25/2020 Zoster Recombinant 07/11/2020,04/17/2020 Surgical History Surgery Date Site/Laterality Comments BLADDER SURGERY GASTRIC BYPASS SURGERY 07/13/2002 - 07/12/2003 HYSTERECTOMY, TOTAL ABDOMINAL 07/13/1997 - 07/12/1998 ANKLE SURGERY Left ANUS SURGERY ANKLE FRACTURE SURGERY 11/12/2021 Foot/Ankle/Right Right ankle open reduction internal fixation lateral malleolus fracture; Surgeon: Junior Evans MD; [facility]; Service: Orthopedics Medical devices from this surgery are in the Medical Devices section. COLONOSCOPY TOTAL KNEE ARTHROPLASTY 03/18/2023 Knee/Right RIGHT TOTAL KNEE ARTHROPLASTY; Surgeon: Trevor Lopez MD; Location: [facility]; Service: Orthopedics Medical devices from this surgery are in the Medical Devices section. Medical History Medical History Date Comments Anemia Depression Anxiety RLS (restless legs syndrome) Chronic diarrhea s/p gastric byp ass Chronic back pain s/p injection, ablation. Hx of migraines Hiatal hernia Hypertension Hyperlipidemia Carotid artery occlusion 01/21/2023 1-39 % ( bilateral ) Irritable bowel syndrome chronic diarrhea Arthritis Family History Medical History Relation Name Comments Depression Brother No Known Problems Father Diabetes Maternal Grandfather Emphysema Maternal Grandfather Diabetes Mother Mental Illness Mother Diabetes Paternal Grandmother eye sig ht loss, amputations. Esophageal Cancer Sister age 5 6 Relation Name Status Comments Brother Alive Father Alive Maternal Grandfather Maternal Grandmother Mother Alive Paternal Grandfather Paternal Grandmother Sister Social History Tobacco Use Types Packs/Day Years Used Date Smoking Tobacco: Never Smokeless Tobacco: Never Tobacco Cessation:Counseling Given: Not Answered Alcohol Use Standard Drinks/Week Comments No 0 (1 standard drink = 0.6 oz pur e alcohol) Overall Financial Resource Strain (CARDIA) Answe r Date Recorded How hard is it for you to pa y for the very basics like food, housing, medical care, and heating? Very hard 11/05/2020 PHQ-2 Answer Date Recorded PHQ-2 Total Score 0 10/17/2022 [facility] - Occupational Stress Questionnaire Answer Date Recorded [...] on file Sexual Orientation Not on file Obstetrics History Last Filed Vital Signs Vital Sign Reading Time Taken Comments Blood Pressure 149/84 11/02/2023 8:45 AM EDT Pulse 82 11/02/2023 8:45 AM EDT Temperature 35.7 C (96.3 F) 11/02/2023 8:45 AM EDT Respiratory Rate 16 11/02/2023 8:45 AM EDT Oxygen Saturation 98% 07/07/2023 2:34 PM EST Inhaled Oxygen Concentration - - Weight 151 kg (333 lb) 08/24/2024 2:43 PM EST Height 167.6 cm (5' 6 ) 08/24/2024 2:43 PM EST Body Mass Index 53.75 08/24/2024 2:43 PM EST Plan of Treatment Upcoming Encounters Date Type Department Care Team (Late st Contact Info) Description 02/28/2025 3:30 PM EDT Office Visit Nicole [address]ITH [address] [place] [address] Hodan Hinkle APRN [address] [place] [address] Health Maintenance Due Date Last Done Comments Cologuard 2006 FIT 2006 Sigmoidoscopy 2006 Virtual Colonography 2006 Pneumococcal Vaccine 50+ (1 of 1 - PCV) 2011 Breast Cancer Screening 07/16/2012 07/16/2010, 01/06 RSV or 60+ (1 - Risk 60-74 years 1-dose series) 2021 Colon Cancer Screening 08/15/2023 Colonoscopy 08/15/2023 08/15/2020 Annual Wellness Exam 10/18/2023 10/17/2022, 07/17/19 18 COVID-19 Vaccine ( season) 2024 10/16/2020, 09/20/2020 DTaP/TDaP/Td (2 - Td or Tdap) 10/25/2030 10/25/2020 Hepatitis C Screening Completed 08/10/2018, 018 Zoster Completed 07/11/2020, 04/17/2020 Influenza Vaccine Completed 05/25/2024, , 05/14/2022, Additional history exists Hepatitis B Vaccine Aged Out No longe r eligible based on patient's age to complete this topic Meningococcal B Vaccine Aged Out No l onger eligible based on patient's age to complete this topic Goals Goal Patient Goal Type Associated Problems [...] 3x wk, perform non weight bearing exercises Medical Devices Implanted Type Area Fire Official Device Identifier Shelf Expiration Date Model / Serial / Lot Plate Tightrp 72mm F/Syndsms Rpr 6hl Lck Ankl/Ft Delt Ligmt - [id number] Implanted:Qty: 1 on 11/12/2021 at [facility] Right: Ankle ARTHREX AR-8943T- 06 / / Screw 3.5x14mm Nlckg Aftab Scr Ft Sd Clav Ankl T15 Hxlb - [id number] Implanted:Qty: 2 on 11/12/2021 at [facility] Right: Ankle ARTHREX AR-8835-1 4 / / Screw 3.5x16mm Nlckg Aftab Scr Ft Sd Clav Ankl T15 Hxlb - [id number] Implanted:Qty: 1 on 11/12/2021 at [facility] Right: Ankle ARTHREX AR-8835-1 6 / / Screw 3.5x18mm Nlckg Aftab Scr Ft Sd Clav Ankl T15 Hxlb - [id number] Implanted:Qty: 1 on 11/12/2021 at [facility] Right: Ankle ARTHREX AR-8835-1 8 / / Screw 3.5x14mm Lck Aftab Scr Ft Sd Clav Ankl T15 Hxlb Drv - [id number] Implanted:Qty: 1 on 11/12/2021 at [facility] Right: Ankle ARTHREX AR-8835L- 14 / / Screw 3.5x16mm Lck Aftab Scr Ft Sd Clav Ankl T15 Hxlb Drv - [id number] Implanted:Qty: 1 on 11/12/2021 at [facility] Right: Ankle ARTHREX AR-8835L- 16 / / Gmk Tibial Tray Cemented Right S3 - [id number] Implanted:Qty: 1 on 03/18/2023 by Trevor Lopez MD at [facility] Right: Knee [employer]A [id number] 11/18/2027 02.07.120 3R / / [id number] Insert Tibial Gmk-Sphere E-Cross Flex Cr 3r-10mm - [id number] Implanted:Qty: 1 on 03/18/2023 by Trevor Lopez MD at [facility] Right: Knee [employer]ACTA [id number] 03/02/2027 02.12.E03 10CRR / / [id number] Cement Bone Full Pack- [employer] Simplex - [id number] Implanted:Qty: 2 on 03/18/2023 by Trevor Lopez MD at [facility] Right: Knee TONY:ORTHOPED ICS [id number] 05/12/2025 6191-1-01 0 / / [id number] Sphere Femur Cemented Right S3 + - [id number] Implanted:Qty: 1 on 03/18/2023 by Trevor Lopez MD at [facility] Right: Knee [employer]ACTA [id number] 11/27/2027 02.12.002 3R / / [id number] Insert Patella Resurfacing Gmk-Sphere E-Cross Size 2 - [id number] Implanted:Qty: 1 on 03/18/2023 by Trevor Lopez MD at [facility] Right: Knee MEDACTA [id number] 01/04/2028 02.12.E00 2RP / / [id number] Procedures Procedure Name Priority Date/Time Associated Diagnosis Comments COLONOSCOPY Routine 08/15/2020 ACUTE HEPATITIS PANEL Routine 08/10/2018 4:16 PM EST Exposure to hepatitis MM MAMMO DIGITAL SCREENING W CAD BILAT Routine 07/16/2010 11:05 AM EST Other screening mammogram from Last 3 Months or Most Recently Relevant to Health Maintenance Results * COLONOSCOPY (08/15/2020) us Historical Provider HEALTH MAINTENANCE Final Res ult [facility] OFFICE * ACUTE HEPATITIS PANEL (08/10/2018 4:16 PM EST) Hep Bs Ag Non-Reacti ve Non-Reacti ve 08/10/2018 9:11 PM EST [facility] Hep B Core IgM Non-Reacti ve Non-Reacti ve 08/10/2018 9:11 PM EST [facility] Hep A IgM Non-Reacti ve Non-Reacti ve 08/10/2018 9:11 PM EST [facility] Hep C Ab Non-Reacti ve Non-Reacti ve 08/10/2018 9:11 PM EST [facility] Blood Venipuncture / Unknown 08/10/2018 4:16 PM EST 08/10/2018 4:16 PM EST us Judy Mars VALIDATION MANAGER CHEMISTRY ORDERABLES Final Result [facility] , [place] [address] * MM MAMMO DIGITAL SCREENING W CAD BILAT (07/16/2010 11:05 AM EST) Anatomical Region Laterality Modality Breast Bilateral Mammography 07/16/2010 3:10 PM EST Impressions 07/17/2010 10:12 AM EST IMPRESSION: No radiographic evidence of malignancy ([id number]) RECOMMENDATION: Routine screening mammogram in 1 year. Narrative 07/17/2010 10:12 AM EST Procedure:MM MAMMO DIGITAL SCREENING W CAD BILAT ~ MM MAMMO DIG SCREEN CAD BILAT Bilateral CC and MLO view(s) were taken. There are scattered fibroglandular densities. Compared to prior studies the most recent being 01-01-00 ~ ~ * The patient with a palpable abnormality, unexplained by breast imaging, should be managed on clinical basis by the attending physician. * Breast imaging has a false negative rate of 15%. * The patient was notified by mail of the results of this examination. ~ The mammogram was reviewed by a Radiologist and CAD. Procedure Note Yaakov May - 07/17/2010 Procedure:MM MAMMO DIGITAL SCREENING W CAD BILAT ~ MM MAMMO DIG SCREEN CAD BILAT Bilateral CC and MLO view(s) were taken. There are scattered fibroglandular densities. Compared to prior studies the most recent being 01-01-00 ~ ~ * The patient with a palpable abnormality, unexplained by breast imaging, should be managed on clinical basis by the attending physician. * Breast imaging has a false negative rate of 15%. * The patient was notified by mail of the results of this examination. ~ The mammogram was reviewed by a Radiologist and CAD. IMPRESSION IMPRESSION: No radiographic evidence of malignancy ([id number]) RECOMMENDATION: Routine screening mammogram in 1 year. us Amauri Benz MD IMG MAMMOGRAPHY ORDERABLES Fin al Result from Last 3 Months or Most Recently Relevant to Health Maintenance Insurance [employer] [facility] MDR [employer] [facility] MDR [facility] MDR Care Teams Government Professor Relationship Specialty Start Date End Date Heidi Childress APRN [facility] [address] [place] [phone] PCP - General Nurse Practitioner 12/04/23
--- OUTSIDE RECORDS SUMMARY | 2025-01-04 10:15 | XMS_ITS | Encounter Summary ---
Author Organization [facility]y Address [address] [place] [address] Care Team Providers Care Animal Husbandry Manager Name Role Phone Heidi Childress APRN Primary Care Provider [phone] Reason for Visit * Reason Comments Medication Refill Encounter Details Date Type Department Care Team ([facility] st Contact Info) Description 11/30/2024 Refill [facility] [address] [place] [address] Rob Del Rosario MD [address] [place] [address] Medication Refill Social History Tobacco Use Types Packs/Day Years Used Date Smoking Tobacco: Never Smokeless Tobacco: Never Alcohol Use Standard Drinks/Week Comments No 0 (1 standard drink = 0.6 oz pur e alcohol) Overall Financial Resource Strain (CARDI) Answe r Date Recorded How hard is it for you to pa y for the very basics like food, housing, medical care, and heating? Very hard 11/05/2020 PHQ-2 Answer Date Recorded PHQ-2 Total Score 0 10/17/2022 [facility] - Occupational Stress [...] 10/17/2022 7:59 AM Vianey Wiggins CCMA * Because of a physical, [...] Entry Date Author No 10/17/2022 7:59 AM Vianey Wiggins CCMA documented in this encounter Plan of Treatment Upcoming Encounters Date Type Department Care Team (Late st Contact Info) Description 02/28/2025 3:30 PM EDT Office Visit Nicole CHAVEZ [address] [place] [address] Hodan Hinkle APRN [address] [place] [address] documented as of this encounter [...] as of this encounter Visit Diagnoses Diagnosis Functional diarrhea Irritable bowel syndrome with diarrhea Irritable bowel syndrome documented in this encounter Care Teams Animal Husbandry Manager Relationship Specialty Start Date End Date Heidi Childress APRN [address] [facility] [address] [place] [address] PCP - General Nurse Practitioner 12/04/23 documented as of this encounter
== END 2025-01-02 23:59 | disposition home or self-care (01) ==
LOC: LAB.DROPOF 01-04 10:12
PROVIDERS: PCP Nurse Practitioner; Visit Provider Nurse Practitioner
DX: E78.5 Hyperlipidemia, unspecified (principal); I10 Essential (primary) hypertension; M19.90 Unspecified osteoarthritis, unspecified site; E53.8 Deficiency of other specified B group vitamins; G47.33 Obstructive sleep apnea (adult) (pediatric); E55.9 Vitamin D deficiency, unspecified; E66.9 Obesity, unspecified; Z13.0 Encounter for screening for diseases of the blood and blood-forming organs and certain disorders involving the immune mechanism; Z13.1 Encounter for screening for diabetes mellitus
CPT/HCPCS: 80053; 80061; 82043; 82306; 82570; 82607; 83036; 84443; 85025; 86803; 87340; 87389

== ENCOUNTER 2025-02-01 12:35 | Outpatient (CLI) | payer MEDICAID, SELFPAY ==
--- OUTSIDE RECORDS SUMMARY | 2013-04-26 20:00 | XMS_ITS | Continuity of Care Document ---
Author Organization [facility] Practice Address [address] [place] [address] Care Team Providers Care Systems Test Analyst Name Role Phone Wganer Liu MD Unavailable Unavailable Advance Directives Directive Yes / No Effective Date File Name No Information Encounters Encounter Description Practice Location Reason(s) For Visit Diagnoses Date Provider Providers Copied on Encounter [facility], [address] [place], [place] [address] [address], [place], [place], [id number], [place] [facility] [address] No Information Noe Edward. [address] [facility], [place], [place], [id number], [place]. tel:[phone] Family History Family Member Type Diagnosis Age At Onset MOTHER Problem (finding) diabetes GRANDPARENT Problem (finding) diabetes Payers Payer name Insurance type Covered democrat ID Authoriza tion(s) No Information Social History [...]
--- OUTSIDE RECORDS SUMMARY | 2023-04-27 08:00 | XMS_ITS | Encounter Summary ---
Author Organization [place] [address] Care Team Providers Care Type Disk Quality Control Supervisor Name Role Phone Judy Mars APRN Primary Care Provider [phone] Reason for Visit * Oncology Medication Prior Authorization (Routine) - Closed Specialty Diagnoses / Procedures Referred By Contac t Referred To Contact Oncology Diagnoses Postsurgical malabsorption Iron deficiency anemia, unspecified iron deficiency anemia type H/O: iron deficiency anemia S/P gastric bypass Procedures [place] IRON SUCROSE INJECTION Judy Mars APRN [address] [place] [address] Phone: tel: fax: [address] [place] [address] Phone: tel: fax: Referral ID Status Reason Start Date Expiration Date Visits Re quested Visits Authorized [id number] Closed 03/05/2023 03/04/2024 1 99 Encounter Details Date Type Department Care Team (Late st Contact Info) Description 04/27/2023 8:00 AM EDT Hospital Encounter [address] [place] [address] Excused Social History Tobacco Use [...] Date Recorded PHQ-2 Total Score 0 10/17/2022 [facility] of Occupat ional [facility] - Occupational Stress Questionnaire Answer Date [...] documented in this encounter Plan of Treatment Upcoming Encounters Date Type Department Care Team (Late st Contact Info) Description 02/17/2025 3:30 PM EDT Telemedicine [facility] [address] [place] [address] Rob Del Rosario MD [address] [place], [place] [id number] 02/28/2025 3:30 PM EDT Office Visit [facility] [address] [place] [address] Hodan Hinkle APRN [address] [place] [address] documented as of this encounter Goals Goal [...] on filedocumented in this encounter Care Teams Type Disk Quality Control Supervisor Relationship Specialty Start Date End Date Judy Mars APRN [address] [place] [address] PCP - General Nurse Practitioner-Family 07/17/1709/12 documented as of this encounter
[2025-02-01 19:34] LABS: Hematocrit 29.0 % (37.0-47.0); Hemoglobin 8.8 g/dL (12.2-16.2); Immature Granulocytes % 1.2 %; Mean Corpuscular HGB Conc 30.3 g/dL (31.8-35.4); Mean Corpuscular Hemoglobin 23.5 pg (27.0-31.2); Mean Corpuscular Volume 77.5 fl (81-99); Nucleated Red Blood Cells % 0 %; Platelet Count 306 K/mm3 (142-424); Red Blood Count 3.74 M/mm3 (4.20-5.40); Red Cell Distribution Width-SD 51.4 fL; White Blood Count 6.6 K/mm3 (4.8-10.8)
[2025-02-01 20:09] LABS: Alanine Aminotransferase 16 U/L (12-78); Albumin Level 4.4 g/dl (3.5-5.0); Albumin/Globulin Ratio 1.9 (1.1-1.8); Alkaline Phosphatase 133 U/L (38-126); Anion Gap 11.5 mEq/L (5-15); Aspartate Amino Transferase 23 U/L (14-36); Bilirubin,Total 0.7 mg/dl (0.2-1.3); Blood Urea Nitrogen 13 mg/dl (7-17); Calcium 9.5 mg/dl (8.4-10.2); Carbon Dioxide 26 mmol/L (22.0-30.0); Chloride 95 mmol/L (98-107); Creatinine,Serum 0.60 mg/dl (0.52-1.04); Estimated Glomerular Filt Rate 101 ml/min (>60); GFR (African American) 122 ML/MIN (>60); Globulin 2.3 g/dL (1.3-3.2); Glucose 104 mg/dl (74-100); Potassium 5.5 mmoL/L (3.5-5.1); Sodium 127 mmol/L (136-145); Total Protein,Serum 6.7 g/dl (6.3-8.2)
[2025-02-01 21:31] LABS: Iron 31 ug/dL (37-170)
[2025-02-01 21:41] LABS: Total Iron Binding Capacity 521 ug/dL (265-497)
[2025-02-01 22:07] LABS: Ferritin 7.59 ng/ml (11.1-264)
[2025-02-01 22:14] LABS: Hemoglobin A1C 5.0 % (4.0-6.0)
[2025-02-01 23:47] LABS: Folate 6.65 ng/mL
--- OUTSIDE RECORDS SUMMARY | 2025-02-06 12:38 | XMS_ITS | Data Portability ---
Author Organization [facility] YOLIS Jett ADMIN Address [address] [place] [address] Care Team Providers Care Blood Bank Laboratory Technologist Name Role Phone LUCINA FUNEZ Primary Care Provider Assessment No assessment recorded. Plan of Treatment Reminders Order Date Submit Date Provider Last Modified By Organization Details Last Modified Time Details Appointments None recorded. Lab None recorded. Referral None recorded. Procedures None recorded. Surgeries esophagogas troduodenos copy (SURG) 2023 024 [email or web address] Alessia Dickinson MD, [address], [address], [place], [address], 4 10:13:12 Imaging RF, upper gastrointes tinal tract + small bowel, w/ contrast PO 2023 024 [facility] ([facility] [address], [place], [address], 4 13:13:04 Medication Orders None recorded. Patient Targets Encounter Date Encounter Id Patient Goals Patient Target Last Modified By Organization Details Last Modified Time 10/19/2023 [id number] 1. Download Lose it and start keeping food records 2. Aim for 1500 kcal, 70-90 gm pro, and <100 gm carb, 25-35 gm fat 3. Eat 3 meals and 3 snacks a day. Find books or puzzles to do instead of eating at night 4. Physical activity 3 times a week for 20-30 min., continue with chair yoga and exercise bands [email or web address] Not available 10/19/2023 10:16:26 Patient InstructionsNo instructions recorded. Reason for Referral None Reported. Results Created Date Observation Date Name Description Value Unit Range Abnormal Flag Note LastModifiedBy Organization Detail LastModifiedTime 10/26/19 24 10/26/2023 RF, upper gastr ointe katie l tract + small bowel , w/ contr ast PO No observ ation record ed. [facility] [address], [place], [address], 10/27/2023 08:32:27 Result Notes None recorded. Problems Name Problem SNOMED Code Status Onset Date Resolution Date Notes Provider Name and Address Organization Details Recorded Time Obesity 624251264 Active 2023 MATT THAKKAR NP [address], [place] [address] , [facility] [place] 4 08:48:18 Hyperlipidemi a 43176086 Active 2023 MATT THAKKAR NP [address], [place] [address] , [facility] & [place] 4 08:48:45 Cobalamin deficiency 937698027 Active 2023 MATT THAKKAR NP [address], [place] [address] , [facility] & [place] 4 08:48:58 Vitamin D deficiency 58607408 Active 2023 MATT THAKKAR NP [address], [place] [address] , [facility] [place] 4 08:49:20 Hypertensive disorder 91166808 Active 2023 MATT THAKKAR NP [address], [place] [address] , [facility] [place] 4 09:35:49 Problem Notes None recorded. Procedures Surgical History Date Name Laterality Status Provider Name and Address Organization Details Recorded Time Gastric Bypass completed France Nugent [facility] [place] 10/19/2023 08:36:25 Cholecystectomy completed [place] Raffi [facility] [place] 10/19/2023 08:36:35 [facility] [place] 10/19/2023 08:36:41 [facility]ste[facility] [place] 10/19/2023 08:37:00 Ankle arthroscopy/surgery completed [place] Raffi [facility] - [facility] [place] 10/19/2023 08:37:12 stoma scar tissue released completed [place] Raffi LEE - [facility] [place] 10/19/2023 08:37:36 [facility] [place] 10/19/2023 08:37:46 Imaging Results None recorded. Procedure [...] Details Last Updated DateTime 10/19/2023 53.4 kg/m2 103807.72 g Valery Retana [facility] & [place] 10/19/2023 08:41:56 Date Recorded Body height Body temperature Heart rate Systolic And Diastolic Provider Name and Address Organization Details Last Updated DateTime 10/19/2023 167.64 cm 97.6 [degF] 90 /min 144/88 mm[Hg] France Nugent [facility] & [place] 10/19/2023 08:39:23 Social History None recorded. Functional Status Question Answer Note LastModified by Organization D etails LastModified Time What is your level of alcohol consumption? None [email or web address] Information not available 10/19/2023 Mental Status None [...] available 10/16/2023 10:38:17 Medical History Condition Response Coronary Artery Disease Y Hernia Y Depression Y Anemia Y Anxiety Disorder Y Arthritis Y Sleep Apnea Y Hypertension Y Gynecological HistoryNo gynecological history recorded. Obstetrics History GPAL:G 0 P 0 0 0 0 Immunizations Vaccine Type Date Status Note Provider Nam e and Address Organization Details Recorded Time influenza, unspecified formulation 04/23/2023 completed [facility] Collins [facility] [place] 10/19/2023 08:35:37 Past Encounters Encounter ID Performer Location Encounter Start Date Encounter Closed Date Diagnosis/Indication Diagnosis SNOMED-CT Code Diagnosis ICD10 Code Diagnosis Note [id number] MATT THAKKAR NP [facility] n [facility] [address] [place] [address] 10/19/2023 08:22:52 10/19/2023 09:09:04 History of bypass of stomach 544225605 Z98.84 Advised qid intake 50% protein 2314-1393 calories/d y less than 100 carbs/dyLo ng [...] structural abnormalit ies. Patient will meet with casing mixer today. She was encouraged to scheduled telehealth follow up a week after her EGD. Obesity 403837667 E66.9 Hyperlipidemia 67865234 E78.5 Cobalamin deficiency 190 373635 E53.8 Vitamin D deficiency 347 78944 E55.9 Hypertensive disorder [id number], LD [facility] Adv [facility] [address] [facility] [address] [place] [address] 10/19/2023 09:10:44 10/19/2023 10:23:29 Morbid obesity 266083090 E66.01 BMI 53.4 Health Concerns Section Related Observation LastModified by Organization Detai ls LastModified Time None Recorded Concern Status LastModified by Organization Details LastModified Time None Recorded Advance Directives Directive None Recorded Payers Insurance Date Sequence Insurance Name Policy Number Policy Maurer Covered Member ID Maurer Member ID Guarantor Name 11/10/2023 1 [facility] Asia Tracey [id number] Asia Tracey 11/10/2023 2 [facility] (MEDICAID REPLACEMENT - HMO) Asia Tracey [id number] Asia Tracey OBGyn Episode No OBEpisode recorded.
--- OUTSIDE RECORDS SUMMARY | 2025-02-06 12:38 | XMS_ITS | Encounter Summary ---
Author Organization [facility] Gastroente rology Address [address] [place] [address] Care Team Providers Care Bank Cashier Name Role Phone Heidi Childress APRN Primary Care Provider [phone] Reason for Visit * Reason Onset Date Comments Medication Refill 01/09/2025 Encounter Details Date Type Department Care Team (Late st Contact Info) Description 01/09/2025 Refill [facility] [address] [place] [address] Rob Del Rosario MD [address] [place] [address] Medication Refill Social History Tobacco Use Types Packs/Day Years Used Date Smoking Tobacco: Never Smokeless Tobacco: Never Alcohol Use Standard Drinks/Week Comments No 0 (1 standard drink = 0.6 oz pur e alcohol) Overall Financial Resource Strain ([facility]) Answe r Date Recorded How hard is it for you to pa y for the very basics like food, housing, medical care, and heating? Very hard 11/05/2020 PHQ-2 Answer Date Recorded PHQ-2 Total Score 0 10/17/2022 [place] [facility] Occupat ional Health - Occupational Stress [...] Vianey Venegas CCMA documented in this encounter Ordered Prescriptions Prescription Sig Dispense Quantity Refills Last Filled Start Date End Date cholestyramine (QUESTRAN) 4 gram Oral Powder in PacketIndications:F unctional diarrhea,Irritable bowel syndrome with diarrhea Take 1 Packet by mouth daily. 90 Packet 3 01/09/2025 documented in this encounter Plan of Treatment Upcoming Encounters Date Type Department Care Team (Late st Contact Info) Description 02/17/2025 3:30 PM EDT Telemedicine [facility] [address] [place] [address] Rob Del Rosario MD [address] [place] [address] 02/28/2025 3:30 PM EDT Office Visit Nicole CHAVEZ [address] [place] [address] Hodan Hinkle APRN [address] [place] [address] documented as of this encounter [...] Irritable bowel syndrome documented in this encounter Discontinued Medications Medication Sig Discontinue Reason Start Date End Da te cholestyramine (QUESTRAN) 4 gram Oral Powder in PacketIndications:Functi onal diarrhea,Irritable bowel syndrome with diarrhea Take 1 Packet by mouth daily. Reorder 11/02/2023 01/09/2025 documented as of this encounter Care Teams Bank Cashier Relationship Specialty Start Date End Date Heidi Childress APRN [address] [facility] [address] [facility] [address] PCP - General Nurse Practitioner 12/04/23 documented as of this encounter
--- OUTSIDE RECORDS SUMMARY | 2025-02-06 12:38 | XMS_ITS | Clinical Summary ---
Author Organization [facility] [employer] BUSINESS OFFICE Address [address] [address] Care Team Providers Care Entry Level Sales Representative Name Role Phone Heidi Childress APRN Primary Care Provider [phone] Allergies Active Allergy Reactions Criticality Noted Date Comments Morphine Nausea And Vomiting High 06/30/2017 Medications nystatin (MYCOSTATIN) Top Powder Apply topically 3 times daily for 14 days. 15 g 2 06/25/20 22 Active cyanocobalamin 100 mcg Oral Tablet Take 1 Tablet by mouth once daily. 30 Tablet 3 03/26/20 23 Active buPROPion (WELLBUTRIN XL) 150 mg Oral Tablet Sustained Release 24 hrIndications:Mo od disorder,Bipolar disorder, current episode depressed, moderate (HCC) Take 1 Tablet by mouth every morning. 90 Tablet 3 05/12/20 23 Active atorvastatin (LIPITOR) 10 mg Oral TabletIndication s:Bilateral carotid artery stenosis Take 1 Tablet by mouth daily. 90 Tablet 3 05/18/20 23 Active hydroCHLOROthiaz denis 25 mg Oral TabletIndication s:Peripheral edema,Pulmonary hypertension (HCC) Take 1 Tablet by mouth daily. 30 Tablet 2 06/18/20 23 Active cariprazine (VRAYLAR) 1.5 mg Oral CapsuleIndicatio ns:Mood disorder,Bipolar disorder, current episode depressed, moderate (HCC) Take 1 Capsule by mouth daily. 90 Capsule 3 08/24/19 24 Active LORazepam (ATIVAN) 0.5 mg Oral TabletIndication s:Generalized anxiety disorder Take 1 Tablet by mouth twice daily as needed for anxiety. NO MORE THAN 45 TABLETS IN 30 DAYS 45 Tablet 09/08/19 24 Active meloxicam (MOBIC) 15 mg Oral TabletIndication s:Injury of left knee, initial encounter Take 1 Tablet by mouth once daily. 30 Tablet 2 09/23/19 24 Active diclofenac (VOLTAREN) 1 % Top GelIndications:S /P total knee arthroplasty, right Apply 2 grams topically twice daily as needed 1 Each 2 12/04/19 24 Active VITAMIN D3 125 mcg (5,000 unit) Oral Tablet Take 1 tablet by mouth once daily. 30 Tablet 2 12/16/19 24 Active ergocalciferol (DRISDOL) 1,250 mcg (50,000 unit) Oral Capsule Take 1 Capsule by mouth once a week. 12 Capsule 04/27/20 24 Active rOPINIRole (REQUIP) 4 mg Oral TabletIndication s:Restless legs syndrome (RLS) Take 1 Tablet by mouth nightly. 30 Tablet 04/27/20 24 Active cholestyramine (QUESTRAN) 4 gram Oral Powder in PacketIndication s:Functional diarrhea,Irritab le bowel syndrome with diarrhea Take 1 Packet by mouth daily. 90 Packet 3 01/10/20 25 Active diphenoxylate-at ropine (LOMOTIL) 2.5-0.025 mg Oral TabletIndication s:Functional diarrhea,Irritab le bowel syndrome with diarrhea Take 1 Tablet by mouth 2 times daily. 60 Tablet 5 01/18/20 25 Active diphenoxylate-at ropine (LOMOTIL) 2.5-0.025 mg Oral TabletIndication s:Functional diarrhea,Irritab le bowel syndrome with diarrhea Take 1 Tablet by mouth 2 times daily. 60 Tablet 5 06/13/20 24 025 Discontinued Active Problems Problem Noted Date Diagnosed Date Fibula fracture 07/07/2023 Sprain of left foot 07/07/2023 S/P total knee replacement, right 05/15/2023 Pulmonary hypertension 02/18/2023 Overview (03/05/2023): Improved on hctz Encouraged sleep study Bilateral carotid artery stenosis 01/22/2023 Primary osteoarthritis of right knee 01/16/2023 Overview (01/16/2023): Added automatically from request for surgery [id number] Primary osteoarthritis of both knees 01/06/2023 Restless [...] (11/05/2021): Added automatically from request for surgery [id number] Iron deficiency anemia due t o chronic [...] Encounters Date Type Department Care Team Description 01/17/2025 Refill [facility] [address] [place] [address] Rob Del Rosario MD 01/12/2025 Refill [facility] [address] [place] [address] Rob Del Rosario MD Medication Refill 01/09/2025 Refill [facility] [address] [place] [address] Rob Del Rosario MD Medication Refill 01/09/2025 Refill [facility] [address] [place] [facility] [address] Rob Del Rosario MD Medication Refill 11/30/2024 Refill [facility] [address] [place] [address] Rob Del Rosario MD Medication Refill 11/07/2024 Refill [facility] Infectious Disease [facility] [address] [place] [address] [place] [phone] Sierra Childress APRN Medication Refill from Last 3 Months Immunizations [...] malleolus fracture; Sur[facility]: Junior Evans MD; [facility]; Service: Orthopedics Medical devices from this surgery are in the Medical Devices section. COLONOSCOPY TOTAL KNEE ARTHROPLASTY 03/18/2023 Knee/Right RIGHT TOTAL KNEE ARTHROPLASTY; Surgeon: Trevor Lopez MD; Location: [facility]; Service: Orthopedics Medical devices from this surgery [...] Date Recorded PHQ-2 Total Score 0 10/17/2022 [facility] of Occupat ional Health - Occupational Stress [...] 3:30 PM EDT Telemedicine [facility] [address] [place] [address] Rob Del Rosario MD [address] [place] [address] 02/28/2025 3:30 PM EDT Office Visit OrthoRadha CHAVEZ [address] [place] [address] Hodan Hinkle APRN [address] [place] [address] Health Maintenance Due Date Last Done Comments Cologuard 2006 FIT 2006 Sigmoidoscopy 2006 Virtual Colonography 2006 Pneumococcal Vaccine 50+ (1 of 1 - PCV) 2011 Breast Cancer Screening 07/16/2012 07/16/2010, 01/06 RSV or 60+ (1 - Risk 60-74 years 1-dose series) 2021 Colon Cancer Screening 08/15/2023 Colonoscopy 08/15/2023 08/15/2020 Annual Wellness Exam 10/18/2023 10/17/2022, 07/17/19 18 COVID-19 Vaccine ( - season) 2024 10/16/2020, 09/20/2020 Influenza Vaccine (#1) 2025 , 07/07/2023, 05/14/2022, Additional history exists DTaP/TDaP/Td (2 - Td or Tdap) 10/25/2030 10/25/2020 Hepatitis C Screening Completed 08/10/2018, 018 Zoster Completed 07/11/2020, 04/17/2020 Hepatitis B Vaccine Aged Out No longe [...] bearing exercises Medical Devices Implanted Type Area Valet Parker Device Identifier Shelf Expiration Date Model / Serial / Lot Plate Tightrp 72mm F/Syndsms Rpr 6hl Lck Ankl/Ft Delt Ligmt - [id number] Implanted:Qty: 1 on 11/12/2021 at [facility] Right: Ankle ARTHREX AR-8943T- 06 / / Screw 3.5x14mm Nlckg Aftab Scr Ft Sd Clav Ankl T15 Hxlb - [id number] Implanted:Qty: 2 on 11/12/2021 at [facility] Right: Ankle ARTHREX AR-8835-1 4 / / Screw 3.5x16mm Nlckg Aftab Scr Ft Sd Clav Ankl T15 Hxlb - [id number] Implanted:Qty: 1 on 11/12/2021 at [facility] Right: Ankle ARTHREX AR-8835-1 6 / / Screw 3.5x18mm Nlckg Aftab Scr Ft Sd Clav Ankl T15 Hxlb - [id number] Implanted:Qty: 1 on 11/12/2021 at [facility] Right: Ankle ARTHREX AR-8835-1 8 / / Screw 3.5x14mm Lck Aftab Scr Ft Sd Clav Ankl T15 Hxlb Drv - [id number] Implanted:Qty: 1 on 11/12/2021 at [facility] Right: Ankle ARTHREX AR-8835L- 14 / / Screw 3.5x16mm Lck Aftab Scr Ft Sd Clav Ankl T15 Hxlb Drv - [id number] Implanted:Qty: 1 on 11/12/2021 at [facility] Right: Ankle ARTHREX AR-8835L- 16 / / Gmk Tibial Tray Cemented Right S3 - [id number] Implanted:Qty: 1 on 03/18/2023 by Trevor Lopez MD at [facility] Right: Knee MEDACTA [id number] 11/18/2027 02.07.120 3R / / [id number] Insert Tibial Gmk-Sphere E-Cross Flex Cr 3r-10mm - [id number] Implanted:Qty: 1 on 03/18/2023 by Trevor Lopez MD at [facility] Right: Knee MEDACTA [id number] 03/02/2027 02.12.E03 10CRR / / [id number] Cement Bone Full Pack- [employer] Simplex - [id number] Implanted:Qty: 2 on 03/18/2023 by Trevor Lopez MD at [facility] Right: Knee TONY:ORTHOPED ICS [id number] 05/12/2025 6191-1-01 0 / / [id number] Sphere Femur Cemented Right S3 + - [id number] Implanted:Qty: 1 on 03/18/2023 by Trevor Lopez MD at [facility] Right: Knee MEDACTA [id number] 11/27/2027 02.12.002 3R / / [id number] Insert Patella Resurfacing Gmk-Sphere E-Cross Size 2 - [id number] Implanted:Qty: 1 on 03/18/2023 by Trevor Lopez MD at [facility] Right: Knee MEDACTA [id number] 01/04/2028 02.12.E00 2RP / / [id number] Procedures Procedure Name Priority Date/Time Associated Diagnosis Comments COLONOSCOPY Routine 08/15/2020 ACUTE HEPATITIS PANEL Routine 08/10/2018 4:16 PM EST Exposure to hepatitis MM MAMMO DIGITAL SCREENING W CAD BILAT Routine 07/16/2010 11:05 AM EST Other screening mammogram from Last 3 Months or Most Recently Relevant to Health Maintenance Results * COLONOSCOPY (08/15/2020) Historical Provider HEALTH MAINTENANCE Final Res ult SEP OFFICE * ACUTE HEPATITIS PANEL (08/10/2018 4:16 PM EST) Hep Bs Ag Non-Reacti ve Non-Reacti ve 08/10/2018 9:11 PM EST [facility] Hep B Core IgM Non-Reacti ve Non-Reacti ve 08/10/2018 9:11 PM EST [facility] Hep A IgM Non-Reacti ve Non-Reacti ve 08/10/2018 9:11 PM EST [facility] Hep C Ab Non-Reacti ve Non-Reacti ve 08/10/2018 9:11 PM EST [facility] Blood Venipuncture / Unknown 08/10/2018 4:16 PM EST 08/10/2018 4:16 PM EST Judy Mars APRN CHEMISTRY ORDERABLES Final Result [facility] [employer], [facility] [address] [facility] , [place] [address] * MM MAMMO DIGITAL SCREENING W CAD BILAT (07/16/2010 11:05 AM EST) Anatomical Region Laterality Modality Breast Bilateral Mammography 07/16/2010 3:10 PM EST Impressions 07/17/2010 10:12 AM EST IMPRESSION: No radiographic evidence of malignancy ([id number]) RECOMMENDATION: Routine screening mammogram in 1 year. [...] IMPRESSION IMPRESSION: No radiographic evidence of malignancy ([id number]) RECOMMENDATION: Routine screening mammogram in 1 year. us Amauri Benz MD IMG MAMMOGRAPHY ORDERABLES Fin al Result from Last 3 Months or Most Recently Relevant to Health Maintenance Insurance [employer] [place] [employer] [place] [employer] [place] MDR [facility] MDR Care Teams Entry Level Sales Representative Relationship Specialty Start Date End Date Heidi Childress APRN [address] [facility] [address] [place] [address] PCP - General Nurse Practitioner 12/04/23
--- OUTSIDE RECORDS SUMMARY | 2025-02-06 12:38 | XMS_ITS | Encounter Summary ---
Author Organization [facility] Gastroente rology Address [address] [place] [address] Care Team Providers Care Waistband Setter Lockstitch Name Role Phone Heidi Childress APRN Primary Care Provider [phone] Reason for Visit * Reason Onset Date Comments Medication Refill 01/09/2025 Encounter Details Date Type Department Care Team (Late st Contact Info) Description 01/09/2025 Refill [facility] [address] [place] [address] Rob Del Rosario MD [address] [place] [address] Medication Refill Social History Tobacco Use Types Packs/Day Years Used Date Smoking Tobacco: Never Smokeless Tobacco: Never Alcohol Use Standard Drinks/Week Comments No 0 (1 standard drink = 0.6 oz pur e alcohol) Overall Financial Resource Strain ([facility]) Answe r Date Recorded How hard is it for you to pa y for the very basics like food, housing, medical care, and heating? Very hard 11/05/2020 PHQ-2 Answer Date Recorded PHQ-2 Total Score 0 10/17/2022 [place] [facility] Occupat ional Health - Occupational Stress [...] 3:30 PM EDT Telemedicine [facility] [address] [facility] [place] [address] Rob Del Rosario MD [address] [place] [place] [address] 02/28/2025 3:30 PM EDT Office Visit [facility] [address] [place] [address] Hodan Hinkle APRN [address] [place] [address] documented as of this encounter [...] syndrome documented in this encounter Care Teams Waistband Setter Lockstitch Relationship Specialty Start Date End Date Heidi Childress APRN [address] [facility] [address] [place] [address] PCP - General Nurse Practitioner 12/04/23 documented as of this encounter
--- OUTSIDE RECORDS SUMMARY | 2025-02-06 12:38 | XMS_ITS | Encounter Summary ---
Author Organization [facility] Gastroente rology Address [address] [place] [address] Care Team Providers Care Client Coordinator Name Role Phone Heidi Childress APRN Primary Care Provider [phone] Reason for Visit * Reason Comments Medication Refill Encounter Details Date Type Department Care Team ([facility] st Contact Info) Description 11/30/2024 Refill [facility] [address] [place] [address] Rob Del Rosario MD [address] [place] [address] Medication Refill Social History Tobacco Use Types [...] Date Recorded PHQ-2 Total Score 0 10/17/2022 [place] [facility] Occupat ional Health - Occupational Stress [...] 3:30 PM EDT Telemedicine [facility] [address] [place] [address] Rob Del Rosario MD [address] [facility], [place] [id number] 02/28/2025 3:30 PM EDT Office Visit Ortho[facility] [address] [facility] [address] Hodan Hinkle APRN [address] [place] [address] documented as of this encounter [...] syndrome documented in this encounter Care Teams Client Coordinator Relationship Specialty Start Date End Date Heidi Childress APRN [address] [place] [facility] [address] [place] [address] PCP - General Nurse Practitioner 12/04/23 documented as of this encounter
--- OUTSIDE RECORDS SUMMARY | 2025-02-06 12:38 | XMS_ITS | Encounter Summary ---
Author Organization [facility] Gastroente rology Address [address] [place] [address] Care Team Providers Care Home Health Aid Name Role Phone Heidi Childress APRN Primary Care Provider [phone] Encounter Details Date Type Department Care Team (Late st Contact Info) Description 01/17/2025 Refill [facility] [address] [place] [address] Rob Del Rosario MD [address] [place] [place] [address] Social History Tobacco Use Types Packs/Day Years [...] Date Recorded PHQ-2 Total Score 0 10/17/2022 [facility] [place] of Occupat ional Health - Occupational Stress [...] Vianey Wiggins CCMA documented in this encounter Ordered Prescriptions Prescription Sig Dispense Quantity Refills Last Filled Start Date End Date diphenoxylate-atrop ine (LOMOTIL) 2.5-0.025 mg Oral TabletIndications:F unctional diarrhea,Irritable bowel syndrome with diarrhea Take 1 Tablet by mouth 2 times daily. 60 Tablet 5 01/17/2025 documented in this encounter Plan of Treatment Upcoming Encounters Date Type Department Care Team (Late st Contact Info) Description 02/17/2025 3:30 PM EDT Telemedicine [facility] [address] [place] [address] Rob Del Rosario MD [address] [place] [address] 02/28/2025 3:30 PM EDT Office Visit Nicole CHAVEZ [address] [place] [address] Hodan Hinkle APRN [address] [place] [address] documented as of this encounter [...] Discontinue Reason Start Date End Da te diphenoxylate-atropine (LOMOTIL) 2.5-0.025 mg Oral TabletIndications:Functi onal diarrhea,Irritable bowel syndrome with diarrhea Take 1 Tablet by mouth 2 times daily. Reorder 01/17/2025 01/17/2025 documented as of this encounter Care Teams Home Health Aid Relationship Specialty Start Date End Date Heidi Childress APRN [address] [facility] [address] [place] [address] PCP - General Nurse Practitioner 12/04/23 documented as of this encounter
--- OUTSIDE RECORDS SUMMARY | 2025-02-06 12:38 | XMS_ITS | Encounter Summary ---
Author Organization [facility] Gastroente rology Address [address] [place] [address] Care Team Providers Care Safety Leader Name Role Phone Heidi Childress APRN Primary Care Provider [phone] Reason for Visit * Reason Comments Medication Refill Encounter Details Date Type Department Care Team ([facility] st Contact Info) Description 01/12/2025 Refill [facility] [address] [place] [address] Rob Del Rosario MD [address] [place] [address] Medication Refill Social History Tobacco Use Types [...] Date Recorded PHQ-2 Total Score 0 10/17/2022 [facility] [place] of Occupat ional Health - Occupational Stress [...] Refills Last Filled Start Date End Date diphenoxylate-atro pine (LOMOTIL) 2.5-0.025 mg Oral TabletIndications: Functional diarrhea,Irritable bowel syndrome with diarrhea Take 1 Tablet by mouth 2 times daily. 60 Tablet 5 01/17/2025 01/17/2025 documented in this encounter Plan of Treatment Upcoming Encounters Date Type Department Care Team (Late st Contact Info) Description 02/17/2025 3:30 PM EDT Telemedicine [facility] [address] [place] [address] Rob Del Rosario MD [address] [place] [place] [address] 02/28/2025 3:30 PM EDT Office Visit [facility]OTT [address] [place] [address] Hodan Hinkle APRN [address] [place] [address] documented as of this encounter [...] 1 Tablet by mouth 2 times daily. 06/13/2024 01/17/2025 documented as of this encounter Care Teams Safety Leader Relationship Specialty Start Date End Date Heidi Childress APRN [address] [facility] [id number] PCP - General Nurse Practitioner 12/04/23 documented as of this encounter
== END 2025-02-01 23:59 | disposition home or self-care (01) ==
LOC: LAB.DROPOF 02-06 12:36
PROVIDERS: PCP Nurse Practitioner; Visit Provider Nurse Practitioner
DX: I10 Essential (primary) hypertension (principal); D64.9 Anemia, unspecified; E66.813 Obesity, class 3; E66.2 Morbid (severe) obesity with alveolar hypoventilation; Z68.43 Body mass index [BMI] 50.0-59.9, adult
CPT/HCPCS: 80053; 82728; 82746; 83036; 83540; 83550; 85025

== ENCOUNTER 2025-02-20 13:53 | Outpatient (CLI) | payer MEDICAID, SELFPAY ==
[2025-02-20] MEDS: ferumoxytoL 510 MG in 0.9 % SODIUM CHLORIDE 50 ML 268 MG IV (14:14)
[2025-02-20 14:20] VITALS: BP 122/68; PULSE 100; RESP 18; TEMP 36.7; O2SAT 99
[2025-02-20 14:40] VITALS: BP 126/71; PULSE 97
[2025-02-20] MEDS: SODIUM CHLORIDE 0.9% 10ML FLUSH SYRINGE 10 ML IV (14:55)
== END 2025-02-20 14:45 | disposition home or self-care (01) ==
LOC: INF 13:54
PROVIDERS: PCP Nurse Practitioner; Visit Provider Internal Medicine Medical Oncology
DX: D64.9 Anemia, unspecified (principal)
CPT/HCPCS: 96374; Q0138

== ENCOUNTER 2025-02-27 11:48 | Outpatient (CLI) | payer MEDICAID, SELFPAY ==
--- OUTSIDE RECORDS SUMMARY | 2023-04-27 08:00 | XMS_ITS | Encounter Summary ---
Author Organization [place] [address] Care Team Providers Care Grain Elevator Superintendent Name Role Phone Judy Mars APRN Primary Care Provider [phone] Reason for Visit * Oncology Medication Prior Authorization (Routine) - Closed Specialty Diagnoses / Procedures Referred By Contac t Referred To Contact Oncology Diagnoses Postsurgical malabsorption Iron deficiency anemia, unspecified iron deficiency anemia type H/O: iron deficiency anemia S/P gastric bypass Procedures [place] IRON SUCROSE INJECTION Judy Mars APRN [address] [place] [address] Phone: tel: fax: [address] [place] [address] Phone: tel: fax: Referral ID Status Reason Start Date Expiration Date Visits Re quested Visits Authorized [id number] Closed 03/05/2023 03/04/2024 1 99 Encounter Details Date Type Department Care Team (Late st Contact Info) Description 04/27/2023 8:00 AM EDT Hospital Encounter [address] [place] [address] Excused Social History Tobacco Use [...] Date Recorded PHQ-2 Total Score 0 10/17/2022 [facility] of Occupat ional [facility] - Occupational Stress Questionnaire Answer Date [...] EDT Office Visit [facility] [address] [place] [address] Hodan Hinkle APRN [address] [place] [address] documented as of this encounter [...] on filedocumented in this encounter Care Teams Grain Elevator Superintendent Relationship Specialty Start Date End Date Judy Mars APRN [address] [place] [address] PCP - General Nurse Practitioner-Family 07/17/1709/12 documented as of this encounter
--- OUTSIDE RECORDS SUMMARY | 2025-02-17 15:30 | XMS_ITS | Encounter Summary ---
Author Organization [facility] Gastroente rology Address [address] [place] [address] Care Team Providers Care Estate Agent Name Role Phone Heidi Childress APRN Primary Care Provider [phone] Reason for Visit * Reason Comments Medication Refill Diarrhea Encounter Details Date Type Department Care Team ([facility] st Contact Info) Description 02/17/2025 3:30 PM EDT Telemedicine [facility] [address] [place] [address] Rob Del Rosario MD [address] [place] [address] Adenomatous polyp of transverse colon (Primary Dx); Functional diarrhea; Irritable bowel syndrome with diarrhea Social History Tobacco Use Types Packs/Day Years [...] Date Recorded PHQ-2 Total Score 0 10/17/2022 [facility] [place] of Occupat ional Health - Occupational Stress [...] Packet by mouth daily. 90 Packet 3 02/17/2025 diphenoxylate-atrop ine (LOMOTIL) 2.5-0.025 mg Oral TabletIndications:F unctional diarrhea,Irritable bowel syndrome with diarrhea Take 1 Tablet by mouth 2 times daily as needed for Diarrhea. 60 Tablet 5 02/17/2025 documented in this encounter Progress Notes * Rob Del Rosario MD - 02/17/2025 3:30 PM EDT Images from the original note were not included. Subjective Subjective: Patient ID: Ms. Tracey is a 64 y.o. female was referred by No ref. provider found here for Chief Complaint Patient presents with Medication Refill Diarrhea HPI: HPI This is a very nice 64-year-old female with a history of prior cholecystectomy, Óscar-en-Y gastric bypass who presents for follow-up. The patient an EGD and colonoscopy in August 2020. At that time there was mild erythema at the GEjunction, prior gastric surgical anatomy was noted. Colonoscopy was notable for polyps as well as diverticulosis. Random colon biopsies returned normal and the polyps returned as tubular adenomas. Repeat colonoscopy 3 years at that time. The patient was started on Questran for her diarrhea. She is also maintained on Lomotil for her diarrhea. The patient states that she is doing stable overall. She is satisfied with her symptom control. Sheis taking Questran daily. She takes the Lomotil as needed typically about 4 times a week. No blood in her stools. No unintentional weight loss. No fevers chills or rash. No trouble swallowing. No other symptoms. Outpatient Medications Marked as Taking for the 02/17/25 encounter (Telemedicine) with Delmar Del Rosario MD Medication Sig Dispense Refill atorvastatin (LIPITOR) 10 mg Oral Tablet Take 1 Tablet by mouth daily. 90 Tablet 3 buPROPion (WELLBUTRIN XL) 150 mg Oral Tablet Sustained Release 24 hr Take 1 Tablet by mouth every morning. 90 Tablet 3 cariprazine (VRAYLAR) 1.5 mg Oral Capsule Take 1 Capsule by mouth daily. 90 Capsule 3 cholestyramine (QUESTRAN) 4 gram Oral Powder in Packet Take 1 Packet by mouth daily. 90 Packet 3 cyanocobalamin 100 mcg Oral Tablet Take 1 Tablet by mouth once daily. 30 Tablet 3 diclofenac (VOLTAREN) 1 % Top Gel Apply 2 grams topically twice daily as needed 1 Each 2 diphenoxylate-atropine (LOMOTIL) 2.5-0.025 mg Oral Tablet Take 1 Tablet by mouth 2 times daily as needed for Diarrhea. 60 Tablet 5 ergocalciferol (DRISDOL) 1,250 mcg (50,000 unit) Oral Capsule Take 1 Capsule by mouth once a week. 12 Capsule 0 hydroCHLOROthiazide 25 mg Oral Tablet Take 1 Tablet by mouth daily. 30 Tablet 2 LORazepam (ATIVAN) 0.5 mg Oral Tablet Take 1 Tablet by mouth twice daily as needed for anxiety. NO MORE THAN 45 TABLETS IN 30 DAYS 45 Tablet 0 meloxicam (MOBIC) 15 mg Oral Tablet Take 1 Tablet by mouth once daily. 30 Tablet 2 nystatin (MYCOSTATIN) Top Powder Apply topically 3 times daily for 14 days. 15 g 2 rOPINIRole (REQUIP) 4 mg Oral Tablet Take 1 Tablet by mouth nightly. 30 Tablet 0 VITAMIN D3 125 mcg (5,000 unit) Oral Tablet Take 1 tablet by mouth once daily. 30 Tablet 2 Past Medical History: Diagnosis Date Anemia Anxiety Arthritis Carotid artery occlusion 01/21/2023 1-39 % ( bilateral ) Chronic back pain s/p injection, ablation. Chronic diarrhea s/p gastric bypass Depression Hiatal hernia Hx of migraines Hyperlipidemia Hypertension Irritable bowel syndrome chronic diarrhea RLS (restless legs syndrome) Past Surgical History: Procedure Laterality Date ANKLE FRACTURE SURGERY Right 11/12/2021 Right ankle open reduction internal fixation lateral malleolus fracture; Surgeon: Junior Evans MD; Location: [facility]; Service: Orthopedics ANKLE SURGERY Left ANUS SURGERY BLADDER SURGERY COLONOSCOPY GASTRIC BYPASS SURGERY 2002 HYSTERECTOMY, TOTAL ABDOMINAL 1998 TOTAL KNEE ARTHROPLASTY Right 03/18/2023 RIGHT TOTAL KNEE ARTHROPLASTY; Surgeon: Trevor Lopez MD; Location: [facility]; Service: Orthopedics Family History Problem Relation Age of Onset Mental Illness Mother Diabetes Mother No Known Problems Father Esophageal Cancer Sister age 56 Depression Brother Diabetes Maternal Grandfather Emphysema Maternal Grandfather Diabetes Paternal Grandmother eye sight loss, amputations. Social History Tobacco Use Smoking status: Never Smokeless tobacco: Never Vaping Use Vaping status: Never Used Substance Use Topics Alcohol use: No Drug use: No Allergies Allergen Reactions Morphine Nausea And Vomiting Immunization History Administered Date(s) Administered Hepatitis A, Unspecified Formulation 04/27/2018 Influenza Patient Reported 04/27/2018 Influenza Vaccine Quadrivalent 04/17/2020 Influenza Vaccine Quadrivalent Mdck Cell Derived 04/17/2020 Influenza Vaccine Quadrivalent PF 05/15/2018, 07/07/2023 Influenza Vaccine, Unspecified Formulation 04/27/2018 Influenza Virus Vaccine Quadrivalant, Flublok 05/14/2022 Moderna SARS-CoV-2 Vaccine 12+ Yrs (Light blue border) 09/20/2020, 10/16/2020 Tdap 10/25/2020 Zoster Recombinant 04/17/2020, 07/11/2020 Patients medications and past medical, family and social histories were reviewed and updated. Therewere no changes except as noted. Review of System: The following systems were reviewed and revealed the following in addition to any already discussedin the HPI: Constitutional: no weight loss, fever, night sweats Eyes: negative for vision changes or deficits HENT: negative for ear pain, no sore throat, no neck pain Respiratory: no cough, shortness of breath, or wheezing Cardiovascular: negative for chest pain, swelling, dyspnea on exertion Gastrointestinal: See HPI. Genitourinary: negative for urinary urgency or pain during urination Musculoskeletal: negative for weakness or focal loss motor function Integumentary: negative for rashes or other skin lesions Hematology / Lymphatics: negative and there is no easy bleeding or bruising Endocrine: negative Allergy / Immunology: negative Neuro / Psych: negative Objective Objective: There were no vitals filed for this visit.There is no height or weight on file to calculate BMI. Physical Exam: Unable to perform physical exam, telephone visit Assessment and Plan: Diagnoses and all orders for this visit: Adenomatous polyp of transverse colon Functional diarrhea - diphenoxylate-atropine (LOMOTIL) 2.5-0.025 mg Oral Tablet; Take 1 Tablet by mouth 2 times daily as needed for Diarrhea. Dispense: 60 Tablet; Refill: 5 - cholestyramine (QUESTRAN) 4 gram Oral Powder in Packet; Take 1 Packet by mouth daily. Dispense: 90 Packet; Refill: 3 Irritable bowel syndrome with diarrhea - diphenoxylate-atropine (LOMOTIL) 2.5-0.025 mg Oral Tablet; Take 1 Tablet by mouth 2 times daily as needed for Diarrhea. Dispense: 60 Tablet; Refill: 5 - cholestyramine (QUESTRAN) 4 gram Oral Powder in Packet; Take 1 Packet by mouth daily. Dispense: 90 Packet; Refill: 3 This is a very nice 64-year-old female with a history of irritable bowel syndrome with diarrhea whopresents for follow-up. Previous EGD and colonoscopy reassuring. Previous celiac testing negative. Currently symptoms well-controlled with daily Questran and as needed Lomotil. We will refill both medications. She knows she is overdue for surveillance colonoscopy with her history of polyps. She again does not wish to schedule at this time but states she will in the near future. Again I advised a surveillance colonoscopy exam at her earliest convenience. Thank you very much for allowing me to participate in the care of your patient. If you have any questions and/or concerns please do not hesitate to call. No follow-ups on file. Rob Del Rosario MD This note was dictated utilizing voice recognition software and this may lead to occasional typographical errors. Patient presented today for routine care follow-up through a telephone visit. Patient is aware thatthis visit/encounter is replacing a face to face office service and is billable under applicable telephone visit billing rules per their insurance and is being imitated by the patient either through a direct scheduled telephone visit or after hours page to the office. Patient is aware that a telephone visit does not replace a [id number] exam and further services may be necessary. I advised the patient that we are conducting her telephone visit through our office in a private space. Patient had no questions prior to initiation of the visit and provided verbal consent to proceed. The length of time of this visit/call was 15 minutes. documented in this encounter Plan of Treatment Upcoming Encounters Date Type Department Care Team (Late st Contact Info) Description 02/28/2025 3:30 PM EDT Office Visit [facility] [address] [facility] [address] [place] [address] [place] [address] Hodan Hinkle APRN [address] [place] [address] documented as of this encounter [...] as of this encounter Visit Diagnoses Diagnosis Adenomatous polyp of transverse colon- Primary Functional diarrhea Irritable bowel syndrome with diarrhea Irritable bowel syndrome documented in this encounter Discontinued Medications Medication Sig Discontinue Reason Start Date End Da te cholestyramine (QUESTRAN) 4 gram Oral Powder in PacketIndications:Functi onal diarrhea,Irritable bowel syndrome with diarrhea Take 1 Packet by mouth daily. Reorder 01/09/2025 02/17/2025 diphenoxylate-atropine (LOMOTIL) 2.5-0.025 mg Oral TabletIndications:Functi onal diarrhea,Irritable bowel syndrome with diarrhea Take 1 Tablet by mouth 2 times daily. Reorder 01/17/2025 02/17/2025 documented as of this encounter Care Teams Estate Agent Relationship Specialty Start Date End Date Heidi Childress APRN [address] [facility] [address] [place] [address] PCP - General Nurse Practitioner 12/04/23 documented as of this encounter
--- OUTSIDE RECORDS SUMMARY | 2025-02-27 11:51 | XMS_ITS | Encounter Summary ---
Author Organization [facility] Gastroente rology Address [address] [place] [address] Care Team Providers Care Blood Donor Recruiter Name Role Phone Heidi Childress APRN Primary Care Provider [phone] Encounter Details Date Type Department Care Team (Late st Contact Info) Description 01/17/2025 Refill [facility] [address] [place] [address] Rob Del Rosario MD [address] [place] [address] Social History Tobacco Use Types Packs/Day Years [...] Date Recorded PHQ-2 Total Score 0 10/17/2022 [facility] [place] of Occupat ional Health - Occupational Stress [...] 2 times daily. 60 Tablet 5 01/17/2025 02/17/2025 documented in this encounter Plan of Treatment Upcoming Encounters Date Type Department Care Team (Late st Contact Info) Description 02/28/2025 3:30 PM EDT Office Visit [facility] SCOTT [address] [place] [address] Hodan Hinkle APRN [address] [place] [address] documented as of this encounter [...] documented as of this encounter Care Teams Blood Donor Recruiter Relationship Specialty Start Date End Date Heidi Childress APRN [address] [facility] [address] [place] [address] PCP - General Nurse Practitioner 12/04/23 documented as of this encounter
--- OUTSIDE RECORDS SUMMARY | 2025-02-27 11:51 | XMS_ITS | Encounter Summary ---
Author Organization [facility] Gastroente rology Address [address] [place] [address] Care Team Providers Care Film Drying Machine Operator Name Role Phone Heidi Childress APRN Primary Care Provider [phone] Reason for Visit * Reason Onset Date Comments Medication Refill 01/09/2025 Encounter Details Date Type Department Care Team (Late st Contact Info) Description 01/09/2025 Refill [facility] [address] [place] [address] Rob Del Rosario MD [address] [place] [address] Medication Refill Social History Tobacco Use Types Packs/Day Years Used Date Smoking Tobacco: Never Smokeless Tobacco: Never Alcohol Use Standard Drinks/Week Comments No 0 (1 standard drink = 0.6 oz pur e alcohol) Overall Financial Resource Strain ([facility]) Answe r Date Recorded How hard is it for you to pa y for the very basics like food, housing, medical care, and heating? Very hard 11/05/2020 PHQ-2 Answer Date Recorded PHQ-2 Total Score 0 10/17/2022 [place] of Occupat ional Health - Occupational Stress [...] cholestyramine (QUESTRAN) 4 gram Oral Powder in PacketIndications: Functional diarrhea,Irritable bowel syndrome with diarrhea Take 1 Packet by mouth daily. 90 Packet 3 01/09/2025 02/17/2025 documented in this encounter Plan of Treatment Upcoming Encounters Date Type Department Care Team (Late st Contact Info) Description 02/28/2025 3:30 PM EDT Office Visit Nicole CHAVEZ [address] [place] [address] Hodan Hinkle APRN [address] [place] [address] documented as of this encounter [...] documented as of this encounter Care Teams Film Drying Machine Operator Relationship Specialty Start Date End Date Heidi Childress APRN [address] [facility] [address] [place] [address] PCP - General Nurse Practitioner 12/04/23 documented as of this encounter
--- OUTSIDE RECORDS SUMMARY | 2025-02-27 11:51 | XMS_ITS | Encounter Summary ---
Author Organization [facility] Gastroente rology Address [address] [place] [address] Care Team Providers Care Internist Medical Doctor Md Name Role Phone Heidi Childress APRN Primary Care Provider [phone] Reason for Visit * Reason Comments Medication Refill Encounter Details Date Type Department Care Team ([facility] st Contact Info) Description 01/12/2025 Refill [facility] [address] [place] [address] Rob Del Rosario MD [address] [place] [address] Medication Refill Social History Tobacco Use Types [...] Date Recorded PHQ-2 Total Score 0 10/17/2022 [place] of Occupat ional Health - Occupational Stress [...] PM EDT Office Visit Nicole CHAVEZ [address] [facility] [address] [place] [address] Hodan Hinkle APRN [address] [place] [address] documented as of this encounter [...] documented as of this encounter Care Teams Internist Medical Doctor Md Relationship Specialty Start Date End Date Heidi Childress APRN [address] [facility] [address] [place] [address] PCP - General Nurse Practitioner 12/04/23 documented as of this encounter
--- OUTSIDE RECORDS SUMMARY | 2025-02-27 11:51 | XMS_ITS | Encounter Summary ---
Author Organization [facility] Address [address] [place] [address] Care Team Providers Care Child And Family Services Worker Name Role Phone Heidi Childress APRN Primary Care Provider [phone] Reason for Visit * Reason Onset Date Comments Medication Refill 01/09/2025 Encounter Details Date Type Department Care Team (Late st Contact Info) Description 01/09/2025 Refill [facility] [address] [place] [address] Rob Del Rosario MD [address] [place] [address] Medication Refill Social History Tobacco Use Types Packs/Day Years Used Date Smoking Tobacco: Never Smokeless Tobacco: Never Alcohol Use Standard Drinks/Week Comments No 0 (1 standard drink = 0.6 oz pur e alcohol) Overall Financial Resource Strain ([facility]) Answe r Date Recorded How hard is it for you to pa y for the very basics like food, housing, medical care, and heating? Very hard 11/05/2020 PHQ-2 Answer Date Recorded PHQ-2 Total Score 0 10/17/2022 [place] of Occupat ional Health - Occupational Stress [...] Nicole CHAVEZ [address] [place] [address] Hodan Hinkle APRN [address] [place] [address] documented as of this encounter [...] syndrome documented in this encounter Care Teams Child And Family Services Worker Relationship Specialty Start Date End Date Heidi Childress APRN [address] [facility] [address] [place] [address] PCP - General Nurse Practitioner 12/04/23 documented as of this encounter
--- OUTSIDE RECORDS SUMMARY | 2025-02-27 11:52 | XMS_ITS | Clinical Summary ---
Author Organization [facility] Address [address] [address] Care Team Providers Care Weight Reduction Specialist Name Role Phone Heidi Childress APRN Primary Care Provider [phone] Allergies Active Allergy Reactions Criticality Noted Date [...] once daily. 30 Tablet 2 4 Active diclofenac (VOLTAREN) 1 % Top [...] as needed for Diarrhea. 60 Tablet 5 5 Active cholestyramine (QUESTRAN) 4 gram Oral Powder in PacketIndications :Functional diarrhea,Irritabl e bowel syndrome with diarrhea Take 1 Packet by mouth daily. 90 Packet 3 5 Active Active Problems Problem Noted Date Diagnosed Date Fibula fracture 07/07/2023 Sprain of left foot 07/07/2023 S/P total knee replacement, right 05/15/2023 Pulmonary hypertension 02/18/2023 Overview (03/05/2023): Improved on hctz Encouraged sleep study Bilateral carotid artery stenosis 01/22/2023 Primary osteoarthritis of right knee 01/16/2023 Overview (01/16/2023): Added automatically from request for surgery [id number] Primary osteoarthritis of both knees 01/06/2023 Restless [...] (11/05/2021): Added automatically from request for surgery [id number] Iron deficiency anemia due t o chronic [...] Encounters Date Type Department Care Team Description 02/17/2025 3:30 PM EDT [facility] [address] [facility] [place] [address] Rob Del Rosario MD Adenomatous polyp of transverse colon (Primary Dx); Functional diarrhea; Irritable bowel syndrome with diarrhea 02/13/2025 Travel 01/17/2025 Refill [facility] [address] [facility] [place] [place] [address] Rob Del Rosario MD 01/12/2025 Refill [facility] [address] [facility] [address] Rob Del Rosario MD Medication Refill 01/09/2025 Refill [facility] [address] [facility] [place] [address] Rob Del Rosario MD Medication Refill 01/09/2025 Refill [facility] [address] [facility] [address] Rob Del Rosario MD Medication Refill 11/30/2024 Refill [facility] [address] [facility] [place] [address] Rob Del Rosario MD Medication Refill from Last 3 Months Immunizations [...] Surgeon: Junior Evans MD; Location: [facility]; Service: Orthopedics Medical devices from this surgery are in the Medical Devices section. COLONOSCOPY TOTAL KNEE ARTHROPLASTY 03/18/2023 Knee/Right RIGHT TOTAL KNEE ARTHROPLASTY; Surgeon: Trevor Lopez MD; Location: [facility]; Service: Orthopedics Medical devices from this [...] Date Recorded PHQ-2 Total Score 0 10/17/2022 [facility] of Occupat ional [facility] - Occupational Stress Questionnaire Answer [...] Nicole CHAVEZ [address] [place] [address] Hodan Hinkle, TAMI [address] [place] [address] Health Maintenance Due Date Last [...] COVID-19 Vaccine ( season) 2024 10/16/2020, 09/20/2020 Influenza Vaccine (#1) [...] an ideal body weight General On track( 10:41 AM EDT) No Starla Oconnell CCMA Note: eating 3 balanced meals per day, my plate, small portions 1500 calories per day - download noelle to assist with tracking walks with dog, work towards pool exercises 3x wk, perform non weight bearing exercises Medical Devices Implanted Type Area Substation Supervisor Device Identifier Shelf Expiration Date Model / Serial / Lot Plate Tightrp 72mm F/Syndsms Rpr 6hl Lck Ankl/Ft Delt Ligmt - [id number] Implanted:Qty: 1 on 11/12/2021 at [facility] Right: Ankle ARTHREX AR-8943T- 06 / / Screw 3.5x14mm Nlckg Aftab Scr Ft Sd Clav Ankl T15 Hxlb - [id number] Implanted:Qty: 2 on 11/12/2021 at [facility] Right: Ankle ARTHREX AR-8835-1 4 / / Screw 3.5x16mm Nlckg Aftab Scr Ft Sd Clav Ankl T15 Hxlb - [id number] Implanted:Qty: 1 on 11/12/2021 at [facility] Right: Ankle ARTHREX AR-8835-1 6 / / Screw 3.5x18mm Nlckg Aftab Scr Ft Sd Clav Ankl T15 Hxlb - [id number] Implanted:Qty: 1 on 11/12/2021 at [facility] Right: Ankle ARTHREX AR-8835-1 8 / / Screw 3.5x14mm Lck Aftab Scr Ft Sd Clav Ankl T15 Hxlb Drv - [id number] Implanted:Qty: 1 on 11/12/2021 at [facility] Right: Ankle ARTHREX AR-8835L- 14 / / Screw 3.5x16mm Lck Aftab Scr Ft Sd Clav Ankl T15 Hxlb Drv - [id number] Implanted:Qty: 1 on 11/12/2021 at [facility] Right: Ankle ARTHREX AR-8835L- 16 / / Gmk Tibial Tray Cemented Right S3 - [id number] Implanted:Qty: 1 on 03/18/2023 by Trevor Lopez MD at [facility] Right: Knee MEDACTA [id number] 11/18/2027 02.07.120 3R / / [id number] Insert Tibial Gmk-Sphere E-Cross Flex Cr 3r-10mm - [id number] Implanted:Qty: 1 on 03/18/2023 by Trevor Lopez MD at [facility] Right: Knee MEDACTA [id number] 03/02/2027 02.12.E03 CRR / / [id number] Cement Bone Full Pack- [employer] Simplex - [id number] Implanted:Qty: 2 on 03/18/2023 by Trevor Lopez MD at [facility] Right: Knee TONY:ORTHOPED ICS [id number] 05/12/2025 6191-1-01 0 / / [id number] Sphere Femur Cemented Right S3 + - [id number] Implanted:Qty: 1 on 03/18/2023 by Trevor Lopez MD at [facility] Right: Knee MEDACTA [id number] 11/27/2027 02.12.002 3R / / [id number] Insert Patella Resurfacing Gmk-Sphere E-Cross Size 2 - [id number] Implanted:Qty: 1 on 03/18/2023 by Trevor Lopez MD at [facility] Right: Knee MEDACTA [id number] 01/04/2028 02.12.E00 P / / [id number] Procedures Procedure Name Priority Date/Time Associated Diagnosis Comments HM COLONOSCOPY Routine 08/15/2020 ACUTE HEPATITIS PANEL Routine 08/10/2018 4:16 PM EST Exposure to hepatitis MM MAMMO DIGITAL SCREENING W CAD BILAT Routine 07/16/2010 11:05 AM EST Other screening mammogram from Last 3 Months or Most Recently Relevant to Health Maintenance Results * HM COLONOSCOPY (08/15/2020) Historical Provider HEALTH MAINTENANCE Final [...] Judy Mars APRN CHEMISTRY ORDERABLES Final Result [facility] [address] [place] [address] * MM MAMMO DIGITAL SCREENING W CAD BILAT (07/16/2010 11:05 AM EST) Anatomical Region Laterality Modality Breast Bilateral Mammography 07/16/2010 3:10 PM EST Impressions 07/17/2010 10:12 AM EST IMPRESSION: No radiographic evidence of malignancy ([id number]) RECOMMENDATION: Routine screening mammogram in 1 year. [...] Radiologist and CAD. Procedure Note Yaakov May R - 07/17/2010 Procedure:MM MAMMO DIGITAL SCREENING W [...] IMPRESSION IMPRESSION: No radiographic evidence of malignancy ([id number]) RECOMMENDATION: Routine screening mammogram in 1 year. Amauri Benz MD IM MAMMOGRAPHY ORDERABLES Fin al Result from Last 3 Months or Most Recently Relevant to Health Maintenance Insurance [facility] [employer] [facility] MDR [employer] [place] [employer] [place] [employer] [place] Care Teams Weight Reduction Specialist Relationship Specialty Start Date End Date Heidi Childress APRN [facility] [address] [place] [address] PCP - General Nurse Practitioner 12/04/23
--- OUTSIDE RECORDS SUMMARY | 2025-02-27 11:52 | XMS_ITS | Encounter Summary ---
Author Organization [facility] [place] [address] Care Team Providers Care Correctional Case Records Supervisor Name Role Phone Heidi Childress APRN Primary Care Provider [phone] Encounter Details Date Type Department Care Team (Latest Contact Info) Description 02/13/2025 Travel Social History Tobacco Use Types Packs/Day Years [...] Date Recorded PHQ-2 Total Score 0 10/17/2022 [facility] [place] of Occupat ional Health - Occupational Stress [...] Description 02/28/2025 3:30 PM EDT [facility] [address] [place] [address] Hodan Hinkle APRN [address] [place] [address] documented as of this encounter [...] on filedocumented in this encounter Care Teams Correctional Case Records Supervisor Relationship Specialty Start Date End Date Heidi Childress APRN [address] [facility] [address] [place] [address] PCP - General Nurse Practitioner 12/04/23 documented as of this encounter
[2025-02-27 12:00] VITALS: BP 134/69; PULSE 90; RESP 18; TEMP 36.6; O2SAT 98
[2025-02-27] MEDS: ferumoxytoL 510 MG in 0.9 % SODIUM CHLORIDE 50 ML 268 MG IV (12:00)
[2025-02-27] MEDS: SODIUM CHLORIDE 0.9% 10ML FLUSH SYRINGE 10 ML IV (12:00)
[2025-02-27 12:20] VITALS: BP 154/71; PULSE 84; RESP 16; TEMP 36.6; O2SAT 98
== END 2025-02-27 12:25 | disposition home or self-care (01) ==
LOC: INF 11:49
PROVIDERS: PCP Family Medicine; Visit Provider Internal Medicine Medical Oncology
DX: D64.9 Anemia, unspecified (principal)
CPT/HCPCS: 96374; Q0138

== ENCOUNTER 2025-03-21 13:51 | Outpatient (CLI) | payer MEDICAID, SELFPAY ==
--- OUTSIDE RECORDS SUMMARY | 2023-04-27 08:00 | XMS_ITS | Encounter Summary ---
Author Organization [place] [address] Care Team Providers Care Web Application Dev Specialist Name Role Phone Judy Mars APRN Primary Care Provider [phone] Reason for Visit * Oncology Medication Prior Authorization (Routine) - Closed Specialty Diagnoses / Procedures Referred By Contac t Referred To Contact Oncology Diagnoses Postsurgical malabsorption Iron deficiency anemia, unspecified iron deficiency anemia type H/O: iron deficiency anemia S/P gastric bypass Procedures [place] IRON SUCROSE INJECTION Judy Mars APRN [address] [place] [address] Phone: tel: fax: [address] [place] [address] Phone: tel: fax: Referral ID Status Reason Start Date Expiration Date Visits Re quested Visits Authorized [id number] Closed 03/05/2023 03/04/2024 1 99 Encounter Details Date Type Department Care Team (Late st Contact Info) Description 04/27/2023 8:00 AM EDT Hospital Encounter [address] [place] [address] Excused Social History Tobacco Use Types Packs/Day Years Used Date Smoking Tobacco: Never Smokeless Tobacco: Never Alcohol Use Standard Drinks/Week Comments No 0 (1 standard drink = 0.6 oz pur e alcohol) Overall Financial Resource Strain (CARDIA) Answe r Date Recorded How hard is it for you to pa y for the very basics like food, housing, medical care, and heating? Very hard 11/05/2020 PHQ-2 Answer Date Recorded PHQ-2 Total Score 0 10/17/2022 [facility] of Occupat ional [facility] - Occupational Stress Questionnaire Answer Date Recorded Do you feel stress - tense, restless, nervous, or anxious, or unable to sleep at night because your mind is troubled all the time - these days? Very much 11/01/2020 Exercise Vital Sign Answer Date Recorde d On average, how many days pe r week do you engage in moderate to strenuous exercise (like a brisk walk)? 0 days 11/01/2020 On average, how many minutes do you engage in exercise at this level? Not asked 11/01/2020 Hunger Vital Sign Answer Date Recorded Within the past 12 months, y ou worried that your food would run out before you got the money to buy more. Never true 11/06/19 21 Within the past 12 months, t he food you bought just didn't last and you didn't have money to get more. Never true 11/05/2020 PRAPARE - Transportation Answer Date Re corded In the past 12 months, has l ack of transportation kept you from medical appointments or from getting medications? Yes 10/12 In the past 12 months, has l ack of transportation kept you from meetings, work, or from getting things needed for daily living? No 11/05/2020 Comments No Sex and Gender Information Value Date Recorded Sex Assigned at Not on file Legal Sex Female 7:42 PM EDT Gender Identity Not on file Sexual Orientation Not on file documented as of this encounter Functional Status * Is the person deaf or does he/she have serious difficulty hearing? Answer Date of Assessment Author No 10/17/2022 7:59 AM Vianey Wiggins CCMA * Is the person blind or does he/she have serious difficulty seeing even when wearing glasses? Answer Date of Assessment Author No 10/17/2022 7:59 AM Vianey Wiggins CCMA * Does this person have serious difficulty walking or climbing stairs? Answer Date of Assessment Author No 10/17/2022 7:59 AM Vianey Wiggins CCMA * Does this person have difficulty dressing or bathing? Answer Date of Assessment Author No 10/17/2022 7:59 AM EDT Vianey Venegas CCMA * Because of a physical, mental or emotional condition, does this person have difficulty doing errands alone such as visiting a doctor's office or shopping? Answer Date of Assessment Author No 10/17/2022 7:59 AM EDT Vianey Venegas CCMA documented as of this encounter Mental Status * Because of a physical, mental or emotional condition, does this person have serious difficulty concentrating, remembering or making decisions? Answer Entry Date Author No 10/17/2022 7:59 AM EDT Vianey Venegas CCMA documented in this encounter Plan of Treatment Not on file documented as of this encounter Goals Goal Patient Goal Type Associated Problems Recent Progress Patient-Stated? Author Blood Pressure < 140/90 Blood Pressure 149/84(2023 8:45 AM EDT) No Sailaja Copeland CCMA Maintain a healthy diet, exercise regularly and maintain an ideal body weight General On track( 021 10:41 AM EDT) No Starla Oconnell CCMA Note: eating 3 balanced meals per day, my plate, small portions 1500 calories per day - download noelle to assist with tracking walks with dog, work towards pool exercises 3x wk, perform non weight bearing exercises documented as of this encounter Visit Diagnoses Not on filedocumented in this encounter Care Teams Web Application Dev Specialist Relationship Specialty Start Date End Date uJdy Mars APRN [address] [place] [address] PCP - General Nurse Practitioner-Family 07/17/1709/12 documented as of this encounter
--- OUTSIDE RECORDS SUMMARY | 2025-02-17 15:30 | XMS_ITS | Encounter Summary ---
Author Organization [facility] Gastroente rology Address [address] [place] [address] Care Team Providers Care Drafter Apprentice Name Role Phone Heidi Childress APRN Primary Care Provider [phone] Reason for Visit * Reason Comments Medication Refill Diarrhea Encounter Details Date Type Department Care Team ([facility] st Contact Info) Description 02/17/2025 3:30 PM EDT Telemedicine [facility] [address] [place] [address] Rob Del Rosario MD [address] [place] [address] Adenomatous polyp of transverse colon (Primary Dx); [...] Date Recorded PHQ-2 Total Score 0 10/17/2022 [facility] [place] of Occupat ional Health - Occupational Stress [...] malleolus fracture; Surgeon: Junior Evans MD; Location: [facility]; Service: Orthopedics ANKLE SURGERY Left ANUS SURGERY BLADDER SURGERY COLONOSCOPY GASTRIC BYPASS SURGERY 2002 HYSTERECTOMY, TOTAL ABDOMINAL 1998 TOTAL KNEE ARTHROPLASTY Right 03/18/2023 RIGHT TOTAL KNEE ARTHROPLASTY; Surgeon: Trevor Lopez MD; Location: [facility]; Service: Orthopedics Family History Problem [...] a telephone visit does not replace a [id number] exam and further services may be necessary. [...] documented as of this encounter Care Teams Drafter Apprentice Relationship Specialty Start Date End Date Heidi Childress APRN [address] [place] [address] [address] [place] [phone] PCP - General Nurse Practitioner 12/04/23 documented as of this encounter
--- OUTSIDE RECORDS SUMMARY | 2025-02-28 15:30 | XMS_ITS | Encounter Summary ---
Author Organization [facility] Address [address] [place] [address] Care Team Providers Care Assistant Merchandise Manager Name Role Phone Heidi Childress APRN Primary Care Provider [phone] Reason for Visit * Reason Comments Follow-up Encounter Details Date Type Department Care Team (Latest Contact Info) Description 02/28/2025 3:30 PM EDT Office Visit [facility] [address] [place] [address] Hodan Hinkle APRN [address] [place] [phone] Primary osteoarthritis of left knee (Primary Dx) Social History Tobacco Use Types Packs/Day Years Used Date Smoking Tobacco: Never Smokeless Tobacco: Never Alcohol Use Standard Drinks/Week Comments No 0 (1 standard drink = 0.6 oz pur e alcohol) Overall Financial Resource Strain ([facility]) Answe r Date Recorded How hard is it for you to pa y for the very basics like food, housing, medical care, and heating? Very hard 11/05/2020 PHQ-2 Answer Date Recorded PHQ-2 Total Score 0 10/17/2022 [facility] [place] of Occupat ional Health - Occupational Stress [...] included. Hodan Hinkle TAMI/ Orthopaedic Surgery/Sports Medicine [address] [place] [address] Patient Name: Asia Tracey Date of : [...] the need for functional improvement now and care home for the overall health of the [...] leg documented in this encounter Care Teams Assistant Merchandise Manager Relationship Specialty Start Date End Date Heidi Childress APRN [address] [facility] [address] [place] [address] PCP - General Nurse Practitioner 12/04/23 documented as of this encounter
--- OUTSIDE RECORDS SUMMARY | 2025-03-21 13:55 | XMS_ITS | Clinical Summary ---
Author Organization [facility] BUSINESS OFFICE Address [address] [address] Care Team Providers Care After School Program Assistant Name Role Phone Heidi Childress APRN Primary Care Provider [phone] Allergies Active Allergy Reactions Criticality Noted Date [...] (01/16/2023): Added automatically from request for surgery [id number] Primary osteoarthritis of both knees 01/06/2023 Restless [...] (11/05/2021): Added automatically from request for surgery [id number] Iron deficiency anemia due t o chronic [...] Encounters Date Type Department Care Team Description 03/14/2025 [facility] [address] [place] [address] Hodan Hinkle APRN Primary osteoarthritis of left knee (Primary Dx) 03/14/2025 Telephone [facility] [address] [place] [address] Hodan Hinkle APRN 02/28/2025 3:30 PM EDT Office Visit [facility] [address] [place] [address] Hodan Hinkle APRN Primary osteoarthritis of left knee (Primary Dx) 02/17/2025 3:30 PM EDT Telemedicine [facility] [address] [facility] [place] [address] Rob Del Rosario MD Adenomatous polyp of transverse colon (Primary Dx); Functional diarrhea; Irritable bowel syndrome with diarrhea 02/13/2025 Travel 01/17/2025 Refill [facility] [address] [facility] [place] [address] Rob Del Rosario MD 01/12/2025 Refill [facility] [address] [place] [address] Rob Del Rosario MD Medication Refill 01/09/2025 Refill [facility] [address] [place] [address] Rob Del Rosario MD Medication Refill 01/09/2025 Refill [facility] [address] [place] [facility] [place] [address] Rob Del Rosario MD Medication Refill from [...] malleolus fracture; Surgeon: Junior Evans MD; Location: [facility]; Service: Orthopedics Medical devices from this surgery are in the Medical Devices section. COLONOSCOPY TOTAL KNEE ARTHROPLASTY 03/18/2023 Knee/Right RIGHT TOTAL KNEE ARTHROPLASTY; Surgeon: Trevor Lopez MD; Location: [facility]; Service: Orthopedics Medical devices from this surgery [...] Recorded PHQ-2 Total Score 0 10/17/2022 [facility] [place] of Occupat ional Health - Occupational Stress [...] 08/24/2024 2:43 PM EST Plan of Treatment Health Maintenance Due Date Last Done Comments Cologuard 2006 FIT 2006 Sigmoidoscopy 2006 Virtual Colonography 2006 Pneumococcal Vaccine 50+ (1 of 1 - PCV) 2011 Breast Cancer Screening 07/16/2012 07/16/2010, 01/06 RSV or 60+ (1 - Risk 60-74 years 1-dose series) 2021 Colon Cancer Screening 08/15/2023 Colonoscopy 08/15/2023 08/15/2020 Annual Wellness Exam 10/18/2023 10/17/2022, 07/17/19 18 COVID-19 Vaccine ( - season) 2025 10/16/2020, 09/20/2020 Influenza Vaccine (#1) 2025 , [...] bearing exercises Medical Devices Implanted Type Area Furniture Servicer Device Identifier Shelf Expiration Date Model / Serial / Lot Plate Tightrp 72mm F/Syndsms Rpr 6hl Lck Ankl/Ft Delt Ligmt - [id number] Implanted:Qty: 1 on 11/12/2021 at [facility] Right: Ankle ARTHREX AR-8943T- 06 / / Screw 3.5x14mm Nlckg Aftab Scr Ft Sd Clav Ankl T15 Hxlb - [id number] Implanted:Qty: 2 on 11/12/2021 at [facility] Right: Ankle ARTHREX AR-8835-1 4 / / Screw 3.5x16mm Nlckg Aftab Scr Ft Sd Clav Ankl T15 Hxlb - [id number] Implanted:Qty: 1 on 11/12/2021 at [facility] Right: Ankle ARTHREX AR-8835-1 6 / / Screw 3.5x18mm Nlckg Aftab Scr Ft Sd Clav Ankl T15 Hxlb - [id number] Implanted:Qty: 1 on 11/12/2021 at [facility] Right: Ankle ARTHREX AR-8835-1 8 / / Screw 3.5x14mm Lck Aftab Scr Ft Sd Clav Ankl T15 Hxlb Drv - [id number] Implanted:Qty: 1 on 11/12/2021 at [facility] Right: Ankle ARTHREX AR-8835L- 14 / / Screw 3.5x16mm Lck Aftab Scr Ft Sd Clav Ankl T15 Hxlb Drv - [id number] Implanted:Qty: 1 on 11/12/2021 at [facility] Right: Ankle ARTHREX AR-8835L- 16 / / Gmk Tibial Tray Cemented Right S3 - [id number] Implanted:Qty: 1 on 03/18/2023 by Trevor Lopez MD at [facility] Right: Knee MEDACTA [id number] 11/18/2027 02.07.120 3R / / [id number] Insert Tibial Gmk-Sphere E-Cross Flex Cr 3r-10mm - [id number] Implanted:Qty: 1 on 03/18/2023 by Trevor Lopez MD at [facility] Right: Knee MEDACTA [id number] 03/02/2027 02.12.E03 10CRR / / [id number] Cement Bone Full Pack- [employer] Simplex - [id number] Implanted:Qty: 2 on 03/18/2023 by Trevor Lopez MD at [facility] Right: Knee TONY:ORTHOPED ICS [id number] 05/12/2025 6191-1-01 0 / / [id number] Sphere Femur Cemented Right S3 + - [id number] Implanted:Qty: 1 on 03/18/2023 by Trevor Lopez MD at [facility] Right: Knee MEDACTA [id number] 11/27/2027 02.12.002 3R / / [id number] Insert Patella Resurfacing Gmk-Sphere E-Cross Size 2 - [id number] Implanted:Qty: 1 on 03/18/2023 by Trevor Lopez MD at [facility] Right: Knee MEDACTA [id number] 01/04/2028 02.12.E00 P / / [id number] Procedures Procedure Name Priority Date/Time Associated Diagnosis [...] APRN CHEMISTRY ORDERABLES Final Result PREFERRED LAB [facility] [address], [address] [place] [address] * MM MAMMO DIGITAL SCREENING W CAD BILAT (07/16/2010 11:05 AM EST) Anatomical Region Laterality Modality Breast Bilateral Mammography 07/16/2010 3:10 PM EST Impressions 07/17/2010 10:12 AM EST IMPRESSION: No radiographic evidence of malignancy ([id number]-[id number]) RECOMMENDATION: Routine screening mammogram in 1 year. [...] by a Radiologist and CAD. Procedure Note ChanaallisonYaakov R - 07/17/2010 Procedure:MM MAMMO DIGITAL SCREENING [...] IMPRESSION IMPRESSION: No radiographic evidence of malignancy ([id number]-[id number]-1) RECOMMENDATION: Routine screening mammogram in 1 year. Amauri Benz MD IMG MAMMOGRAPHY ORDERABLES Fin al Result from Last 3 Months or Most Recently Relevant to Health Maintenance Insurance [facility] [employer] [place] [place] [employer] [place] [place] [employer] [place] Care Teams After School Program Assistant Relationship Specialty Start Date End Date Heidi Childress APRN [address] [facility] [address] [place] [address] PCP - General Nurse Practitioner 12/04/23
--- OUTSIDE RECORDS SUMMARY | 2025-03-21 13:55 | XMS_ITS | Encounter Summary ---
Author Organization [facility] Address [address] [place] [address] Care Team Providers Care Gmat Instructor Name Role Phone Heidi Childress APRN Primary Care Provider [phone] Reason for Referral * In Office Procedure (Routine) - Pending Review Specialty Diagnoses / Procedures Referred By Bren t Referred To Contact Diagnoses Primary osteoarthritis of left knee Procedures [facility] MEDICATION/PROCEDURE AUTH Hodan Hinkle APRN [address] [place] [address] Phone: tel: fax: Referral ID Status Reason Start Date Expiration Date V isits Requested Visits Authorized [id number] Pending Review 03/14/2025 03/14/2026 1 1 Encounter Details Date Type Department Care Team (Late st Contact Info) Description 03/14/2025 Orders Only [facility] [address] [place], [place] [id number] Hodan Hinkle APRN [address] [place] [address] Primary osteoarthritis of left knee (Primary [...] Date Recorded PHQ-2 Total Score 0 10/17/2022 [facility] - Occupational Stress Questionnaire Answer Date [...] of Assessment Author No 10/17/2022 7:59 AM Vianye Wiggins CCMA * Does this person have [...] osteoarthrosis, lower leg documented in this encounter Orders Nursing Count Last Ordered Date First Orde red Date [facility] MEDICATION/PROCEDURE AUTH 1 08/2024 documented in this encounter Care Teams Gmat Instructor Relationship Specialty Start Date End Date Heidi Childress APRN [address] [facility] [address] [place] [address] PCP - General Nurse Practitioner 12/04/23 documented as of this encounter
--- OUTSIDE RECORDS SUMMARY | 2025-03-21 13:55 | XMS_ITS | Encounter Summary ---
Author Organization [facility] Address [address] [place] [address] Care Team Providers Care Eyedotter Name Role Phone Heidi Childress APRN Primary Care Provider [phone] Encounter Details Date Type Department Care Team (Late st Contact Info) Description 03/14/2025 Telephone [facility] [address] [place] [address] Hodan Hinkle APRN [address] [place] [phone] Social History Tobacco Use Types Packs/Day Years [...] Date Recorded PHQ-2 Total Score 0 10/17/2022 [facility] [place] of Occupat ional Health - Occupational Stress [...] Vianey Wiggins CCMA documented in this encounter Miscellaneous Notes * Telephone Encounter - Back, MAR Baptiste - 03/14/2025 5:38 PM EDT I spoke to patient and apologized and let her know that her order for gel got missed being put in at her visit and I placed the order today and I am very sorry for the delay. She was understanding and knows we will call when that becomes available. * Telephone Encounter - Frida Kang, Clerical Staff - 03/14/2025 1:21 PM EDT Pt calling she is checking on the status of getting her gel injections schedule. Pls call pt to discuss. documented in this encounter Plan of Treatment [...] on filedocumented in this encounter Care Teams Eyedotter Relationship Specialty Start Date End Date Heidi Childress APRN [facility] [address] [place] [address] PCP - General Nurse Practitioner 12/04/23 documented as of this encounter
--- OUTSIDE RECORDS SUMMARY | 2025-03-21 13:56 | XMS_ITS | Encounter Summary ---
Author Organization [facility] [address] Care Team Providers Care Magnetic Tester Name Role Phone Heidi Childress APRN Primary Care Provider [phone] Encounter Details Date Type Department Care Team [...] Date Recorded PHQ-2 Total Score 0 10/17/2022 [facility] [place] of Occupat ional Health - Occupational Stress [...] General On track( 021 10:41 AM EDT) Starla Das CCMA Note: eating 3 balanced meals per day, my plate, small portions 1500 calories per day - download noelle to assist with tracking walks with dog, work towards pool exercises 3x wk, perform non weight bearing exercises documented as of this encounter Visit Diagnoses Not on filedocumented in this encounter Care Teams Magnetic Tester Relationship Specialty Start Date End Date Heidi Childress APRN [facility] [address] [place] [phone] PCP - General Nurse Practitioner 12/04/23 documented as of this encounter
--- NOTE | 2025-03-21 14:00 | CT_ITS ---
FINAL REPORT TECHNIQUE: Thin section axial images were obtained through the paranasal sinuses without contrast. Reconstruction images were obtained from the axial data. Exam was performed using dose reduction techniques such as automated exposure control, adjustment of the mA and kV according to patient size, and use of iterative reconstruction technique. CLINICAL HISTORY: nasal passage pain COMPARISON: None FINDINGS: The paranasal sinuses are clear. There is no air-fluid level or significant mucosal thickening. The maxillary infundibulum are patent bilaterally. There is no significant nasal septal deviation. No nasal obstruction is identified. There is no acute osseous abnormality. The mastoid air cells are clear. There are periapical lucencies surrounding the central incisors of the maxilla bilaterally, more prominent on the left than the right, and periapical abscesses are not excluded. IMPRESSION: No evidence of nasal obstruction or acute sinusitis. There are periapical lucencies involving the central incisors of the maxilla, greater on the left than on the right, and abscesses are not excluded. Reviewed, Interpreted and Dictated by Layne Contreras MD Transcribed by Vale Degroot Authenticated and . [facility]
== END 2025-03-21 23:59 | disposition home or self-care (01) ==
LOC: RAD 13:51
PROVIDERS: PCP Nurse Practitioner; Visit Provider Nurse Practitioner
DX: J34.2 Deviated nasal septum (principal); J34.89 Other specified disorders of nose and nasal sinuses; R06.7 Sneezing; R93.0 Abnormal findings on diagnostic imaging of skull and head, not elsewhere classified
CPT/HCPCS: 70486

== ENCOUNTER 2025-04-16 13:55 | Observation (INO) | payer MEDICAID, SELFPAY ==
--- OUTSIDE RECORDS SUMMARY | 2013-04-26 20:00 | XMS_ITS | Continuity of Care Document ---
Author Organization [facility] Practice Address [address] [place] [address] Care Team Providers Care School Photograph Editor Name Role Phone Wagner Liu MD Unavailable Unavailable Advance Directives Directive Yes / No Effective Date File Name No Information Encounters Encounter Description Practice Location Reason(s) For Visit Diagnoses Date Provider Providers Copied on Encounter [facility], [address] [place], [place] [address] [address], [place], [place], [id number], [address] No Information Noe Edward. [address] [place] [address], [place], [place], [id number], . tel:[phone] Family History Family Member Type Diagnosis Age At Onset MOTHER Problem (finding) diabetes GRANDPARENT Problem (finding) diabetes Payers Payer name Insurance type Covered libertarian ID Authoriza tion(s) No Information Social History [...]
--- OUTSIDE RECORDS SUMMARY | 2023-04-27 08:00 | XMS_ITS | Encounter Summary ---
Author Organization [place] [address] Care Team Providers Care Linseed Oil Order Filler Name Role Phone Judy Mars APRN Primary Care Provider [phone] Reason for Visit * Oncology Medication Prior Authorization (Routine) - Closed Specialty Diagnoses / Procedures Referred By Contac t Referred To Contact Oncology Diagnoses Postsurgical malabsorption Iron deficiency anemia, unspecified iron deficiency anemia type H/O: iron deficiency anemia S/P gastric bypass Procedures [place] IRON SUCROSE INJECTION Judy Mars APRN [address] [place] [address] Phone: tel: fax: [address] [place] [address] Phone: tel: fax: Referral ID Status Reason Start Date Expiration Date Visits Re quested Visits Authorized [id number] Closed 03/05/2023 03/04/2024 1 99 Encounter Details Date Type Department Care Team (Late st Contact Info) Description 04/27/2023 8:00 AM EDT Hospital Encounter [address] [place] [address] Excused Social History Tobacco Use [...] Date Recorded PHQ-2 Total Score 0 10/17/2022 [facility] of Occupat ional [facility] - Occupational Stress Questionnaire Answer Date Recorded [...] Care Team (Late st Contact Info) Description 04/19/2025 3:15 PM EDT Office Visit [facility] [address] [address] Kai Velasquez MD [address] [place] [address] documented as of this encounter Goals Goal [...] on filedocumented in this encounter Care Teams Linseed Oil Order Filler Relationship Specialty Start Date End Date Judy [place] [address] PCP - General Nurse Practitioner-Family 07/17/1709/12 documented as of this encounter
--- OUTSIDE RECORDS SUMMARY | 2025-02-17 15:30 | XMS_ITS | Encounter Summary ---
Author Organization [facility] Gastroente rology Address [address] [place] [address] Care Team Providers Care Beef Skinner Name Role Phone Heidi Childress APRN Primary Care Provider [phone] Reason for Visit * Reason Comments Medication Refill Diarrhea Encounter Details Date Type Department Care Team ([facility] st Contact Info) Description 02/17/2025 3:30 PM EDT Telemedicine [facility] [address] [place] [address] Rob Del Rosario MD [address] [place] [address] Adenomatous polyp of transverse colon (Primary Dx); [...] Date Recorded PHQ-2 Total Score 0 10/17/2022 [facility] [place] of Occupat ional Health - Occupational Stress [...] malleolus fracture; Surgeon: Junior Evans MD; Location: [facility]; Service: Orthopedics ANKLE SURGERY Left ANUS SURGERY BLADDER SURGERY COLONOSCOPY GASTRIC BYPASS SURGERY 2002 HYSTERECTOMY, TOTAL ABDOMINAL 1998 TOTAL KNEE ARTHROPLASTY Right 03/18/2023 RIGHT TOTAL KNEE ARTHROPLASTY; Surgeon: Trevor Lopez MD; Location: [facility]; Service: Orthopedics Family History Problem [...] EGD and colonoscopy reassuring. Previous celiac testing negative.Currently symptoms well-controlled with daily Questran and as needed Lomotil. We will refill both medications. She knows she is overdue for surveillance colonoscopy with her history of polyps. She again does not wish to schedule at this time but states she will in the near future. Again I advised asurveillance colonoscopy exam at her earliest convenience. Thank [...] a telephone visit does not replace a [id number] exam and further services may be necessary. [...] Upcoming Encounters Date Type Department Care Team ([facility] st Contact Info) Description 04/19/2025 3:15 PM EDT [facility] [address] [place] [address] Kai Velasquez MD [address] [place] [address] documented as of this encounter Goals Goal [...] documented as of this encounter Care Teams Beef Skinner Relationship Specialty Start Date End Date Heidi Childress APRN [address] [facility] [address] [place] [address] PCP - General Nurse Practitioner 12/04/23 documented as of this encounter
--- OUTSIDE RECORDS SUMMARY | 2025-02-28 15:30 | XMS_ITS | Encounter Summary ---
Author Organization [facility] Address [address] [place] [address] Care Team Providers Care Bread Packer Name Role Phone Heidi Childress APRN Primary Care Provider Reason for Visit * Reason Comments Follow-up Encounter Details Date Type Department Care Team (Latest Contact Info) Description 02/28/2025 3:30 PM EDT Office Visit [facility] [address] [place] [address] Hodan Hinkle APRN [address] [place] [phone] Primary osteoarthritis of left knee (Primary Dx) Social History Tobacco Use Types Packs/Day Years Used Date Smoking Tobacco: Never Smokeless Tobacco: Never Alcohol Use Standard Drinks/Week Comments No 0 (1 standard drink = 0.6 oz pur e alcohol) Overall Financial Resource Strain ([facility]) Answe r Date Recorded How hard is it for you to pa y for the very basics like food, housing, medical care, and heating? Very hard 11/05/2020 PHQ-2 Answer Date Recorded PHQ-2 Total Score 0 10/17/2022 [facility] of Occupat ional Health - Occupational Stress [...] Vianey Venegas CCMA documented in this encounter Progress Notes * Hodan Hinkle APRN - 02/28/2025 3:30 PM EDT Images from the original note were not included. Hodan Hinkle TAMI/ Orthopaedic Surgery/Sports Medicine [address] [place] [address] Patient Name: Asia Tracey Date of : 1960 Primary Care Physician: Heidi Childress APRN DATE OF VISIT: 02/28/2025 Chief Complaint: Left knee pain History of Present Illness: Asia Tracey is a 64 y.o. female returns today for reevaluation of her left knee. She has knownend-stage patellofemoral and advanced lateral compartment degenerative joint disease. She has difficulty standing, she states she can only stand for about 2 minutes at a time. Due to her weight she has limited activity levels. She has had cortisone injections as well as gel injections and they are mildly beneficial. She notes she is unable to stand and exercise she got a pedal bike that she uses and puts it under the table. She is not a good surgical candidate given her weight. She states she has applied for different weight loss medications and has been denied. She typically walks with a walker or a cane for fall prevention. Medical History: Past Medical History: Diagnosis Date Anemia Anxiety Arthritis Carotid artery occlusion 01/21/2023 1-39 % ( bilateral ) Chronic back pain s/p injection, ablation. Chronic diarrhea s/p gastric bypass Depression Hiatal hernia Hx of migraines Hyperlipidemia Hypertension Irritable bowel syndrome chronic diarrhea RLS (restless legs syndrome) Review of Systems: Pertinent items are noted in HPI Review of systems reviewed from Patient History Form is available in the patient's chart. General Exam: Patient is alert and oriented, adequately groomed in no acute distress. BMI: 53.7 at the last time of measurement. Knee Examination: Inspection: The knee has no effusion, however; there is general synovitis. Palpation: Pain is noted to the medial and patellofemoral region, no real lateral joint line tenderness. Range of Motion: Is essentially full. Anterior posterior drawer and Shweta's are negative varus and valgus stressing reveal no instability. There is some crepitance/clicking upon range of motion. There is no mechanical locking noted. Strength: Is weakened with resistive testing, tightness in hamstring area. Skin: There are no abrasions, rashes, ulcerations or lesions. Distally there is no swelling, mild venous trophic changes associated with normal aging. Gait: Is antalgic. Diagnosis: Left knee end-stage patellofemoral degenerative joint disease, advanced lateral compartment degenerative joint disease. Morbid obesity. Plan: Today we have discussed how weight can effect her knees. Every extra pound of weight, she experiences roughly three to four pounds of additional pressure. When she walks on level ground the force on her knees is equivalent to one and a half times her body weight. At her current weight of 333 poundsthat is nearly 500 pounds of pressure. Add in an incline or stairs and the pressure is two to threetimes her body weight, squatting or picking up an item she has dropped is four to five times her weight. We will inject the Left knee, as discussed and decided with the patient, also, continue physical therapy either at home or in person to improve range of motion, strength and as a fall prevention strategy. The patient should ice with regularity. We discussed the need for functional improvement now and group home for the overall health of the knee. We have discussed foot position and shoe wear, assistive walking devices as needed. We went on to discuss weight loss strategies. All decisions were made in consultation with the patient today. I discussed with the patient the nature of osteoarthritis of the knee. We talked about treatment ofarthritis and the various options involved in it. The patient understands that the treatment can vary from doing essentially nothing to a total joint replacement. We discussed using over the counter NSAIDS, and prescription NSAIDS as the next line of treatment. We also discussed the possibility of brace wear and/or orthotics. We went on to talk about corticosteroid injection and visco supplementation. The patient understands that steroid injections can offer up to 4 months of relief and visco potentially longer results but that everyone responds differently. The decision was made with the patient's understanding to proceed with intra- articular injection. We have discussed the risk and benefits of each injection. We have also discussed that cortisone injections can affect people in different ways. They can elevate blood sugar, cause sleep loss, and may not be as effective as we intended them to be. We will order her gel injection tomorrow. We discussed the fact that total joint arthoplasty is the last and definitive treatment for end stage osteo-arthritis but that it is a significant operation and carries with it significant risks. Thepatient decided and we are in agreement to hold on any surgical interventions at this time. PROCEDURE: Verbal and written consent was obtained for a corticosteroid injection. The patient understands there is a risk for infection which may require surgery. In addition, they may get only temporary relief or no relief of their symptoms. The patient is advised to call the office of any signs of infection immediately, or any other concerns. The patient was also advised to watch their blood sugars if they have diabetes. The left knee was prepped in standard sterile fashion. The knee was injected with 40 mg triamcinolone, 3 cc 0.25% bupivacaine without any inflammation, complication and adverse reaction. We have discussed the nature of the diagnosis and treatment options with the patient today. Ample time was given for discussion and questions about different treatment strategies and the patient is in full agreement with our treatment plan. All decisions were made with the patient's full understanding. Hodan Hinkle APRN Parts of this note may have been created by a chart review, combined by taking my own patient history. The patient was physically seen and examined by myself, including a personal review of images, tests, and formation of the impression and plan. In addition, this note may been dictated utilizing voice recognition software. Unfortunately this leads to occasional typographical errors. I apologize in advance if the situation occurs. If questions occur please do not hesitate to call our office. The patient was advised to call with any issues or concerns in the future. documented in this encounter Plan of Treatment Upcoming Encounters Date Type Department Care Team (Late st Contact Info) Description 04/19/2025 3:15 PM EDT Office Visit Nicole CHAVEZ [address] [address] Kai Velasquez MD [address] [place] [address] documented as of this encounter Goals [...] as of this encounter Visit Diagnoses Diagnosis Primary osteoarthritis of left knee- Primary Primary localized osteoarthrosis, lower leg documented in this encounter Care Teams Bread Packer Relationship Specialty Start Date End Date Heidi Childress APRN [address] [facility] [address] [address] PCP - General Nurse Practitioner 12/04/23 documented as of this encounter
--- OUTSIDE RECORDS SUMMARY | 2025-04-05 15:00 | XMS_ITS | Encounter Summary ---
Author Organization [facility] Address [address] [place] [address] Care Team Providers Care Gameplay Engineer Name Role Phone Heidi Childress APRN Primary Care Provider [phone] Reason for Visit * Reason Comments Follow-up Injections Encounter Details Date Type Department Care Team ([facility] st Contact Info) Description 04/05/2025 3:00 PM EDT [facility] [address] [place] [address] Kai Velasquez MD [address] [place] [address] Primary osteoarthritis of left knee (Primary Dx) Social History Tobacco Use Types Packs/Day Years Used Date Smoking Tobacco: Never Smokeless Tobacco: Never Alcohol Use Standard Drinks/Week Comments No 0 (1 standard drink = 0.6 oz pur e alcohol) Overall Financial Resource Strain ([facility]) Answe r Date Recorded How hard is it for you to pa y for the very basics like food, housing, medical care, and heating? Very hard 11/05/2020 PHQ-2 Answer Date Recorded PHQ-2 Total Score 0 10/17/2022 [place] of Occupat ional Health - Occupational Stress [...] called to verify the correctpatient, procedure, equipment, end user support specialist and site/side marked as required. Patient was prepped and draped in the usual sterile fashion. * Kai Velasquez MD - 04/05/2025 3:00 PM EDT Images from the original note were not included. Asia Tracey 04/05/2025 [id number] CHIEF COMPLAINT: Recheck left knee HISTORY OF [...] 04/19/2025 3:15 PM EDT Office Visit [facility] [address] [place] [address] Kai Velsaquez MD [address] [place] [address] documented as of this encounter Goals Goal [...] Procedure Name Priority Date/Time Associated Diagnosis Comments [place] ARTHROCENTESIS ASPIR&/INJ MAJOR JT/BURSA W/O US Routine 04/05/2025 3:00 PM EDT Primary osteoarthritis of left knee documented in this encounter Results * OK ARTHROCENTESIS ASPIR&/INJ MAJOR JT/BURSA W/O US (04/05/2025 3:00 PM EDT) Narrative [facility] - 04/05/2025 3:00 PM EDT Linh [place], [place] 04/05/2025 3:02 PM Large Joint Injection/Arthrocentesis: [...] to verify the correct patient, procedure, equipment, end user support specialist and site/side marked as required. Patient was prepped and draped in the usual sterile fashion. us Kai Velasquez MD PROCEDURE/MINOR SURGICAL ORDERA BLES [...] 04/05/2025 documented in this encounter Care Teams Gameplay Engineer Relationship Specialty Start Date End Date Heidi Childress APRN [address] [place] [address] [address] [place] [phone] PCP - General Nurse Practitioner 12/04/23 documented as of this encounter
[2025-04-16] VITALS (20 sets, daily range): BP systolic 59–168; BP diastolic 32–118; PULSE 94–125; RESP 12–20; TEMP 36.4–36.7; O2SAT 92–98; BMI 64.5; BMI 62.8
--- OUTSIDE RECORDS SUMMARY | 2025-04-16 14:51 | XMS_ITS | Encounter Summary ---
Author Organization [facility] Address [address] [place] [address] Care Team Providers Care Titrator Name Role Phone Heidi Childress APRN Primary Care Provider [phone] Encounter Details Date Type Department Care Team (Late st Contact Info) Description 03/14/2025 Telephone [facility] [address] [place] [address] Hodan Hinkle APRN [address] [place] [phone] Social History Tobacco Use Types Packs/Day Years [...] Date Recorded PHQ-2 Total Score 0 10/17/2022 [facility] of Occupat ional Health - Occupational Stress [...] Entry Date Author No 10/17/2022 7:59 AM Vianye Wiggins CCMA documented in this encounter Miscellaneous [...] Visit [facility] [address] [place] [address] Kai Velasquez MD [address] [address] documented as of this encounter Goals Goal [...] on filedocumented in this encounter Care Teams Titrator Relationship Specialty Start Date End Date Heidi Childress APRN [address] [facility] [address] [place] [address] PCP - General Nurse Practitioner 12/04/23 documented as of this encounter
--- OUTSIDE RECORDS SUMMARY | 2025-04-16 14:51 | XMS_ITS | Encounter Summary ---
Author Organization [facility] Address [address] [place] [address] Care Team Providers Care Parts Sales Manager Name Role Phone Heidi Childress APRN Primary Care Provider [phone] Encounter Details Date Type Department Care Team (Late st Contact Info) Description 03/24/2025 Telephone [facility] [address] [place] [address] Kai Velasquez MD [address] [address] Social History Tobacco Use Types Packs/Day Years [...] Recorded PHQ-2 Total Score 0 10/17/2022 [facility] of Occupat ional Health - Occupational Stress [...] Date Author No 10/17/2022 7:59 AM EDT Theo, A albert Carin, CCMA documented in this encounter Miscellaneous Notes * Telephone Encounter - Oliva Becerril NA - 03/24/2025 11:22 AM EDT Patient calling, I see she's ready to schedule. Just FYI, thanks! * Telephone Encounter - Maximus Gracia MA - 03/24/2025 11:18 AM EDT Pt was looking to see if the gel injections were authorized but I can not find the referral or order Please call pt to advise documented in this encounter Plan of Treatment Upcoming Encounters Date Type Department Care Team (Late st Contact Info) Description 04/19/2025 3:15 PM EDT Office Visit [facility] [address] [place] [address] Kai Velasquez MD [address] [place] [address] documented as of this encounter [...] on filedocumented in this encounter Care Teams Parts Sales Manager Relationship Specialty Start Date End Date Heidi Childress APRN [address] [facility] [address] [place] [address] PCP - General Nurse Practitioner 12/04/23 documented as of this encounter
--- OUTSIDE RECORDS SUMMARY | 2025-04-16 14:51 | XMS_ITS | Encounter Summary ---
Author Organization [facility] Address [address] [place] [address] Care Team Providers Care Second Ride Fare Collector Name Role Phone Heidi Childress APRN Primary Care Provider [phone] Reason for Visit * Reason Onset Date Comments Knee Pain 03/22/2025 Encounter Details Date Type Department Care Team (Late st Contact Info) Description 03/22/2025 Telephone [facility] [address] [place] [address] Hodan Hinkle APRN [address] [place] [address] Knee Pain Social History Tobacco Use Types Packs/Day Years [...] Recorded PHQ-2 Total Score 0 10/17/2022 [facility] of Occupat ional Health - Occupational Stress [...] Vianey Venegas CCMA documented in this encounter Miscellaneous Notes * Telephone Encounter - Myranda Jaramillo, Clerical Staff - 03/24/2025 3:35 PM EDT SCHEDULED 04/05, 04/12, 04/19/25 * Telephone Encounter - Vicki Minor Clerical Staff - 03/23/2025 2:38 PM EDT GOOD TO SCHEDULE SUPARTZ LEFT KNEE APPROVED AUTH# [id number] VALID 07/29/2024 - 07/29/2025 * Telephone Encounter - Claudia Chávez - 03/23/2025 12:16 PM EDT Okay to schedule. MLD 03/23/2025 * Telephone Encounter - Vicki Minor Clerical Staff - 03/22/2025 7:53 AM EDTSummary: SUPARTZ LEFT KNEE PLEASE REVIEW BENEFITS IN CHART - CHART# [id number] APPROVED AUTH# [id number] VALID 07/29/2024 - 07/29/2025 documented in this encounter Plan of Treatment Upcoming Encounters Date Type Department Care Team (Late st Contact Info) Description 04/19/2025 3:15 PM EDT Office Visit [facility] [address] [address] Kai Velasquez MD [address] [place] [address] documented as of this encounter Goals [...] on filedocumented in this encounter Care Teams Second Ride Fare Collector Relationship Specialty Start Date End Date Heidi Childress APRN [address] [place] [address] [address] [place] [phone] PCP - General Nurse Practitioner 12/04/23 documented as of this encounter
--- OUTSIDE RECORDS SUMMARY | 2025-04-16 14:51 | XMS_ITS | Encounter Summary ---
Author Organization [facility] Address [address] [place] [address] Care Team Providers Care Purchasing Associate Name Role Phone Heidi Childress APRN Primary Care Provider [phone] Reason for Referral * In Office Procedure (Routine) - AFF Authorized Specialty Diagnoses / Procedures Referred By Contac t Referred To Contact Orthopedic Surgery Diagnoses Primary osteoarthritis of left knee Procedures [facility] MEDICATION/PROCEDURE AUTH Hodan Hinkle APRN [address] [place] [address] Phone: tel: fax: [place] [address] Phone: tel: fax: Referral ID Status Reason Start Date Expiration Date Visits Requested Visits Authorized [id number] AFF Authorized 03/14/2025 03/14/2026 1 1 Encounter Details Date Type Department Care Team (Late st Contact Info) Description 03/14/2025 Orders Only [facility] [address] [place], [place] [id number] Hodan Hinkle APRN [address] [place] [address] Primary osteoarthritis of left knee [...] Date Recorded PHQ-2 Total Score 0 10/17/2022 [facility] - Occupational Stress Questionnaire Answer Date Recorded [...] 7:59 AM EDT Vianey Venegas CCMA * Does this person have difficulty [...] Office Visit [facility] [address] [address] Kai Velasquez MD [address] [place] [address] documented as of this encounter Goals Goal [...] 08/2024 documented in this encounter Care Teams Purchasing Associate Relationship Specialty Start Date End Date Heidi Childress APRN [address] [facility] [address] [place] [address] PCP - General Nurse Practitioner 12/04/23 documented as of this encounter
--- OUTSIDE RECORDS SUMMARY | 2025-04-16 14:52 | XMS_ITS | Clinical Summary ---
Author Organization [facility] [facility] Address [address] [address] Care Team Providers Care Grain Oilseed Or Pasture Farm Worker Name Role Phone Heidi Childress APRN Primary Care Provider [phone] Allergies Active Allergy Reactions Criticality Noted Date [...] mouth daily. 90 Packet 3 5 Active Hospital, Clinic, or Other Facility Administered Medication Ordered Dose Route Frequency Start Date End Date Status sodium hyaluronate (viscosup) injection 2.5 mLIndications:Primary osteoarthritis of left knee 2.5 mL IAtc ONCE PRN 04/05/2025 04/05/20 25 Ended Active Problems Problem Noted Date Diagnosed Date Fibula fracture 07/07/2023 Sprain of left foot 07/07/2023 S/P total knee replacement, right 05/15/2023 Pulmonary hypertension 02/18/2023 Overview (03/05/2023): Improved on hctz Encouraged sleep study Bilateral carotid artery stenosis 01/22/2023 Primary osteoarthritis of right knee 01/16/2023 Overview (01/16/2023): Added automatically from request for surgery [id number] Primary osteoarthritis of both knees 01/06/2023 Restless [...] (11/05/2021): Added automatically from request for surgery [id number] Iron deficiency anemia due t o chronic [...] Encounters Date Type Department Care Team Description 04/05/2025 3:00 PM EDT Office Visit [facility] [address] [place] [address] Kai Velasquez MD Primary osteoarthritis of left knee (Primary Dx) 03/24/2025 Telephone [facility] [address] [facility], [place] [phone] Kai Velasquez MD 03/22/2025 Telephone [facility] [address] [facility], [place] [phone] Hodan Hinkle APRN Knee Pain 03/14/2025 Orders Only [facility] [address] [place] [address], [place] [phone] Hodan Hinkle APRN Primary osteoarthritis of left knee (Primary Dx) 03/14/2025 [facility] [address] [place] [address] Hodan Hinkle APRN 02/28/2025 3:30 PM EDT [facility] [address] [place] [address], [place] [phone] Hoadn Hinkle APRN Primary osteoarthritis of left knee (Primary Dx) 02/17/2025 3:30 PM EDT [facility]medicine [facility] [address] [facility] [place] [address] Rob Del Rosario MD Adenomatous polyp of transverse colon (Primary Dx); Functional diarrhea; Irritable bowel syndrome with diarrhea 02/13/2025 Travel 01/17/2025 Refill [facility] [address] [place] [facility] [place] [address] Rob Del Rosario MD from Last 3 Months Immunizations Immunization Administration [...] Surgeon: Junior Evans MD; Location: [facility]; Service: Orthopedics Medical devices from this surgery are in the Medical Devices section. COLONOSCOPY TOTAL KNEE ARTHROPLASTY 03/18/2023 Knee/Right RIGHT TOTAL KNEE ARTHROPLASTY; Surgeon: Trevor Lopez MD; Location: [facility]; Service: Orthopedics Medical devices from [...] Date Recorded PHQ-2 Total Score 0 10/17/2022 [facility] [place] of Occupat ional Health - Occupational Stress [...] on file Sexual Orientation Not on file Last Filed Vital Signs Vital Sign Reading [...] Description 04/19/2025 3:15 PM EDT Office Visit [facility] [address] [address] Kai Velasquez MD [address] [place] [address] Health Maintenance Due Date Last Done Comments Cologuard 2006 FIT 2006 Sigmoidoscopy 2006 Virtual Colonography 2006 Pneumococcal Vaccine 50+ (1 of 1 - PCV) 2011 Breast Cancer Screening 07/16/2012 07/16/2010, 01/06 RSV or 60+ (1 - Risk 60-74 years 1-dose series) 2021 Colon Cancer Screening 08/15/2023 Colonoscopy 08/15/2023 08/15/2020 Annual Wellness Exam 10/18/2023 10/17/2022, 07/17/19 18 COVID-19 Vaccine (3 - season) 2025 10/16/2020, 09/20/2020 Influenza Vaccine [...] bearing exercises Medical Devices Implanted Type Area Ladle Watcher Device Identifier Shelf Expiration Date Model / Serial / Lot Plate Tightrp 72mm F/Syndsms Rpr 6hl Lck Ankl/Ft Delt Ligmt - [id number] Implanted:Qty: 1 on 11/12/2021 at [facility] Right: Ankle ARTHREX AR-8943T- 06 / / Screw 3.5x14mm Nlckg Aftab Scr Ft Sd Clav Ankl T15 Hxlb - [id number] Implanted:Qty: 2 on 11/12/2021 at [facility] Right: Ankle ARTHREX AR-8835-1 4 / / Screw 3.5x16mm Nlckg Aftab Scr Ft Sd Clav Ankl T15 Hxlb - [id number] Implanted:Qty: 1 on 11/12/2021 at [facility] Right: Ankle ARTHREX AR-8835-1 6 / / Screw 3.5x18mm Nlckg Aftab Scr Ft Sd Clav Ankl T15 Hxlb - [id number] Implanted:Qty: 1 on 11/12/2021 at [facility] Right: Ankle ARTHREX AR-8835-1 8 / / Screw 3.5x14mm Lck Aftab Scr Ft Sd Clav Ankl T15 Hxlb Drv - [id number] Implanted:Qty: 1 on 11/12/2021 at [facility] Right: Ankle ARTHREX AR-8835L- 14 / / Screw 3.5x16mm Lck Aftab Scr Ft Sd Clav Ankl T15 Hxlb Drv - [id number] Implanted:Qty: 1 on 11/12/2021 at [facility] Right: Ankle ARTHREX AR-8835L- 16 / / Gmk Tibial Tray Cemented Right S3 - [id number] Implanted:Qty: 1 on 03/18/2023 by Trevor Lopez MD at [facility] Right: Knee [employer]ACTA [id number] 11/18/2027 02.07.120 3R / / [id number] Insert Tibial Gmk-Sphere E-Cross Flex Cr 3r-10mm - [id number] Implanted:Qty: 1 on 03/18/2023 by Trevor Lopez MD at [facility] Right: Knee [employer]ACTA [id number] 03/02/2027 02.12.E03 10CRR / / [id number] Cement Bone Full Pack- [employer] - [id number] Implanted:Qty: 2 on 03/18/2023 by Trevor Lopez MD at [facility] Right: Knee TONY:ORTHOPED ICS [id number] 05/12/2025 6191-1-01 0 / / [id number] Sphere Femur Cemented Right S3 + - [id number] Implanted:Qty: 1 on 03/18/2023 by Trevor Lopez MD at [facility] Right: Knee MEDACTA [id number] 11/27/2027 02.12.002 3R / / [id number] Insert Patella Resurfacing Gmk-Sphere E-Cross Size 2 - [id number] Implanted:Qty: 1 on 03/18/2023 by Trevor Lopez MD at [facility] Right: Knee MEDACTA [id number] 01/04/2028 02.12.E00 2RP / / [id number] Procedures Procedure Name Priority Date/Time Associated Diagnosis Comments CA ARTHROCENTESIS ASPIR&/INJ MAJOR JT/BURSA W/O US Routine 04/05/2025 3:00 PM EDT Primary osteoarthritis of left knee HM COLONOSCOPY Routine 08/15/2020 ACUTE HEPATITIS PANEL Routine 08/10/2018 4:16 PM EST Exposure to hepatitis MM MAMMO DIGITAL SCREENING W CAD BILAT Routine 07/16/2010 11:05 AM EST Other screening mammogram from Last 3 Months or Most Recently Relevant to Health Maintenance Results * CA ARTHROCENTESIS ASPIR&/INJ MAJOR JT/BURSA W/O US (04/05/2025 3:00 PM EDT) Narrative [facility] - 04/05/2025 3:00 PM EDT Marcy Melton MA 04/05/2025 3:02 PM Large Joint Injection/Arthrocentesis: [...] to verify the correct patient, procedure, equipment, sales support consultant and site/side marked as required. Patient was prepped and draped in the usual sterile fashion. Kai Velasquez MD PROCEDURE/MINOR SURGICAL ORDERA BLES Final Result Performing Organization Address [facility] Co de Phone Number [facility] * HM COLONOSCOPY (08/15/2020) Historical Provider HEALTH MAINTENANCE Final Res ult Performing Organization Address [facility] Co de Phone Number SEP OFFICE * ACUTE HEPATITIS PANEL (08/10/2018 4:16 PM EST) Hep Bs Ag Non-Reacti ve Non-Reacti ve 08/10/2018 9:11 PM EST [facility] Hep B Core IgM Non-Reacti ve Non-Reacti ve 08/10/2018 9:11 PM EST [facility] [employer], [facility] Hep A IgM Non-Reacti ve Non-Reacti ve 08/10/2018 9:11 PM EST [facility] [facility], [facility] Hep C Ab Non-Reacti ve Non-Reacti ve 08/10/2018 9:11 PM EST [facility], [facility] Blood Venipuncture / Unknown 08/10/2018 4:16 PM EST 08/10/2018 4:16 PM EST Judy Mars AQUACULTURE WORKER CHEMISTRY ORDERABLES Final Result Performing Organization Address [facility] de Phone Number [facility] [employer] [address] [facility] , [place] [address] * MM MAMMO DIGITAL SCREENING W CAD BILAT (07/16/2010 11:05 AM EST) Anatomical Region Laterality Modality Breast Bilateral Mammography 07/16/2010 3:10 PM EST Impressions 07/17/2010 10:12 AM EST IMPRESSION: No radiographic evidence of malignancy ([id number]) RECOMMENDATION: Routine screening mammogram in 1 year. [...] IMPRESSION IMPRESSION: No radiographic evidence of malignancy ([id number]) RECOMMENDATION: Routine screening mammogram in 1 year. Amauri Benz MD IMG MAMMOGRAPHY ORDERABLES Fin al Result from Last 3 Months or Most Recently Relevant to Health Maintenance Insurance [facility] [employer] [place] [employer] [place] [employer] [place] [address] Care Teams Grain Oilseed Or Pasture Farm Worker Relationship Specialty Start Date End Date Heidi Childress APRN [address] [place] [facility] [address] [place] [address] PCP - General Nurse Practitioner 12/04/23
--- NOTE | 2025-04-16 15:14 | XR_ITS ---
PROCEDURE INFORMATION: Exam: XR Chest Exam date and time: 04/16/2025 3:17 PM Age: 65 years old Clinical indication: Shortness of breath; Additional info: Short of breath TECHNIQUE: Imaging protocol: Radiologic exam of the chest. Views: 1 view. COMPARISON: CT HR CHEST X3 11/14/2024 1:03 PM FINDINGS: Lungs: There is chest wall attenuation of the lower lungs on the frontal view that may obscure pathology. No visible acute process of the lungs. Pleural spaces: Unremarkable. No gross pleural effusion. No pneumothorax. Heart/Mediastinum: There is stable enlargement of the cardiac silhouette. Bones/joints: Unremarkable. IMPRESSION: No acute cardiopulmonary process.
--- NOTE | 2025-04-16 15:18 | ED_ITS ---
Discharge Plan Disposition Patient Disposition: Admitted Clinical Impressions Clinical Impression: CHF (congestive heart failure) Discharge ED Provider: Mainor Carey General Adult HPI <Pilar Rivera (ED), PATTERN HAND - Last Filed: 04/16/25 21:39> General Chief complaint: Skin/Abscess/Foreign Body Stated complaint: swelling (3 weeks) and redness to both legs Time Seen by Provider: 04/16/25 15:07 Mode of Arrival: Wheelchair Source of Information: Patient Description of Symptoms (Recalled from ER Triage Doc. by RN): Patient states she has had bilateral lower leg swelling x 3 weeks, states she has seen her PCP and had fluid medication given to her for it but it has not helped. Patient states yesterday legs started getting red. History of Present Illness HPI narrative: 65-year-old female presents to the ED today for complaint of bilateral lower extremity swelling for 3 weeks. She has seen her PCP about this and had fluid medication given to her for it but it has not helped. She started yesterday with the redness and warmth that started today. She has been doing what her primary care doctors tell her elevation, no salt, no caffeine. Patient takes hydrochlorothiazide but no other diuretics that are listed. She says she is short of breath but only because she is over 400 pounds. . Patient does have history of anemia, YUNG, lung disease, dyspnea, hypertension. She does not have history of CHF Related Data Home Medications ?Medication ?Instructions ?Recorded ?Confirmed cholestyramine (with sugar) 4 gram 1 ea PO DAILY 09/0904/16/25 oral powder diphenoxylate-atropine 2.5 1 tab PO DAILY PRN Diarrhea 09/09/23 04/16/25 mg-0.025 mg tablet Previous Rx's ?Medication ?Instructions ?Recorded triamcinolone acetonide 0.1 % 1 applic topical QID Red ness, 08/09/24 topical cream itching 30 days #30 grams cyanocobalamin (vitamin B-12) 1,000 mcg PO DAILY #30 t abs 10/11/24 1,000 mcg tablet prazosin 1 mg capsule 1 mg PO HS #30 caps 11/07/24 blood pressure monitor #1 ea 11/29/24 cariprazine 3 mg capsule (Vraylar) 3 mg PO DAILY #30 c aps 01/02/25 desvenlafaxine succinate 100 mg See Rx Instructions .R oute 01/30/25 tablet,extended release 24 hr .COMPLEX #30 tabs cholecalciferol (vitamin D3) 125 125 mcg PO DAILY #90 tabs 02/01/25 mcg (5,000 unit) tablet (Vitamin D3) lisinopril 30 mg tablet 30 mg PO DAILY #30 tabs 01/11 10/04 ferumoxytol 510 mg/17 mL (30 510 mg (17 mL) IV Q3D 2 d oses 02/15/25 mg/mL) intravenous solution (Feraheme) amitriptyline 10 mg tablet 10 - 20 mg (1 - 2 x 10 mg) PO HS 02/16/25 #60 tabs hydrochlorothiazide 25 mg tablet 25 mg PO DAILY #90 ta bs 03/01/25 atorvastatin 10 mg tablet 10 mg PO DAILY #90 tabs 03/14 10/04 lorazepam 0.5 mg tablet 0.5 mg PO BID PRN anxiety #3 0 tabs 04/04/25 meloxicam 15 mg tablet 15 mg PO DAILY #30 tabs 03/14 10/04 ropinirole 4 mg tablet 4 mg PO HS #30 tabs 04/04/25 Allergies Allergy/AdvReac Type Severity Reaction Status Date / Time morphine AdvReac Intermediate Nausea Verified 03/28/25 14:42 [facility] <Pilar Rivera (ED), PATTERN HAND - Last Filed: 04/16/25 21:39> [facility] Disclaimer: The information contained in this section may have been updated after the patient was seen, as this information can be updated by other users. Medical History Sneezing Sinus pain Nasal pain Deviated septum BMI 60.0-69.9, adult Anemia Vitamin D deficiency YUNG (obstructive sleep apnea) Restrictive lung disease Dyspnea on exertion Dyspnea Chest pain Vitamin B12 deficiency Frequent nocturnal awakening Chronic back pain Osteoarthritis Obesity Hyperlipidemia Essential hypertension Depressed Hypertension Chronic diarrhea Surgical History History of cholecystectomy History of tonsillectomy and adenoidectomy History of gastric bypass Hx of hysterectomy Hx of hernia repair History of ankle surgery Hx of total knee replacement Family History Other Cancer Diabetes Hyperlipidemia Hypertension Stroke Social History Smoking Status: Never smoker alcohol intake: never substance use type: denies use current occupational status: unemployed Travel in the last 8 weeks?: None household members: significant other housing: house marital status: single number of children: 1 Have you lived/traveled outside [place] in past 30 days?: No Contact w/someone who lives/traveled outside US past 30 days?: No Exposure to someone with infectious disease in past 14 days?: No Do you have a fever (greater than 100.4 F or 38 C)?: No Have you tested positive for COVID-19?: No Exposed to someone with COVID-19 in past 14 days?: No Do you have a sore throat?: No Do you have a cough?: No Do you have any weakness?: No Do you have any diarrhea?: No Are you experiencing any unusual bleeding?: No Do you have any muscle aches/pain?: No Do you have any abdominal pain?: No Are you experiencing loss of taste or smell?: No Other Medical History Have you received the Flu Vaccine for this season: Yes Have you received the Pneumonia Vaccine: No <Pilar Rivera (ED), PATTERN HAND - Last Filed: 04/16/25 21:39> ROS Obtained: Yes Systems reviewed as appropriate & no additional complaints except as documented Constitutional Constitutional: Reports as per HPI Physical Exam <Pilar Rivera (ED), PATTERN HAND - Last Filed: 04/16/25 21:39> General General appearance: alert Head Head exam: normocephalic Eye Eye exam: Present PERRL and EOMI ENT ENT exam: Present normal oropharynx and mucous membranes moist Neck Neck exam: Present full ROM and trachea midline Respiratory Respiratory exam: Present normal lung sounds bilaterally Cardiovascular Cardiovascular exam: Present normal rhythm, tachycardia, normal heart sounds, +S1 and +S2 Abdominal Exam Abdominal exam: Present soft and normal bowel sounds Extremities Exam Extremities exam: Present full ROM, tenderness and edema Neurological Exam Neurological exam: Present alert and oriented X3 Skin Skin exam: Present warm, dry, rash and erythema Medical Decision Making <Pilar Rivera (ED), PATTERN HAND - Last Filed: 04/16/25 21:39> Medical Records Screening: Per USPSTF and CDC recommendations, given the prevalence of disease in our region, it is our hospital?s policy to screen for HIV and viral Hepatitis for all patients aged 18 and over and those with ongoing risk factors. Phill Inquiry Pt receiving controlled substance: No Phill was queried for this patient: No Vital Signs: 04/16/25 14:02 04/16/25 15:30 04/16/25 16:01 Temperature 97.8 F Temperature Source Oral Pulse Rate 113 H Pulse Rate [Right Brachial] 100 H Respiratory Rate 18 14 Blood Pressure 135/81 168/97 H Blood Pressure [Right Arm] 149/78 H Blood Pressure Mean [Right Arm] 101 Blood Pressure Source [Right Arm] Automatic Cuff Blood Pressure Position [Right Arm] Sitting 02 Sat by Pulse Oximetry 98 98 97 Oxygen Delivery Method Room Air Room Air Room Air 04/16/25 16:31 04/16/25 17:48 04/16/25 18:00 Temperature Temperature Source Pulse Rate 110 H 125 H 104 H Pulse Rate [Right Brachial] Respiratory Rate 15 14 14 Blood Pressure 168/93 H 159/92 H 127/71 Blood Pressure [Right Arm] Blood Pressure Mean [Right Arm] Blood Pressure Source [Right Arm] Blood Pressure Position [Right Arm] 02 Sat by Pulse Oximetry 95 94 L 94 L Oxygen Delivery Method Room Air Room Air Room Air 04/16/25 18:36 04/16/25 18:38 04/16/25 18:45 Temperature 98.0 F Temperature Source Pulse Rate 121 H 111 H Pulse Rate [Right Brachial] Respiratory Rate 12 20 Blood Pressure 155/118 H 127/73 Blood Pressure [Right Arm] Blood Pressure Mean [Right Arm] Blood Pressure Source [Right Arm] Blood Pressure Position [Right Arm] 02 Sat by Pulse Oximetry 96 95 Oxygen Delivery Method Room Air Room Air Room Air Lab Data Lab Results 04/16/25 15:00: WBC 6.0, RBC 3.82 L, Hgb 11.4 L, Hct 32.9 L, MCV 86.1, MCH 29.8, MCHC 34.7, RDW 21.8 H, Plt Count 252, MPV 9.0, Neut % (Auto) 81.1 H, Lymph % (Auto) 7.5 L, Pender % (Auto) 6.2, Eos % (Auto) 3.7, Baso % (Auto) 0.2, Neut # (Auto) 4.9, Lymph # (Auto) 0.5 L, Pender # (Auto) 0.4, Eos # (Auto) 0.2, Baso # (Auto) 0.0, Total Counted 100, Neutrophils % (Manual) 89 H, Lymphocytes % (Manual) 7 L, Monocytes % (Manual) 2, Eosinophils % (Manual) 2, Platelet Estimate Normal, D-Dimer 1.00 H, Sodium 114 L*, Potassium 4.8, Chloride 79 L, Carbon Dioxide 27, Anion Gap 12.8, BUN 8, Creatinine 0.60, Estimated Creat Clear 53, Estimated GFR 101, Est GFR ( Amer) 122, Glucose 104 H, Calcium 8.9, Magnesium 1.7, Total Bilirubin 0.9, AST 21, ALT 15, Alkaline Phosphatase 158 H, Troponin I < 0.01, NT-Pro-B Natriuret Pep 1550 H, Total Protein 6.5, Albumin 4.1, Globulin 2.4, Albumin/Globulin Ratio 1.7, Lipase 24 04/16/25 15:00 04/16/25 20:44 Orders (Tests/Meds): ED MEDICATIONS Generic Name Dose Route Start Last Admin Trade Name Freq PRN Reason Stop Dose Admin Acetaminophen 650 mg 04/16/25 22:03 Acetaminophen 325mg Tab PO 05/16/25 22:02 Q6HP PRN Fever or Mild Pain (1-3) Amitriptyline HCl 10 mg 04/17/25 21:00 Amitriptyline 10mg Tablet PO 05/17/25 20:59 HS BOUBACAR Amitriptyline HCl 10 mg 04/16/25 22:04 Amitriptyline 10mg Tablet PO 04/16/25 22:05 ONCE ONE Diphenoxylate HCl/Atropine mg 04/16/25 21:54 Diphenoxylate/Atropine 2.5mg Tablet PO 05/16/25 21:53 DAILY PRN Diarrhea Enoxaparin Sodium 180 mg 04/16/25 17:45 04/16/25 21:07 Enoxaparin 100mg/Ml Syringe 1 mg/kg (180 mg) 05/16/25 17:44 180 mg SUBCUT Administration Q12H BOUBACAR Milrinone Lactate 20 mg/ 100 mls @ 6.804 mls/hr 04/16/25 16:11 04/16/25 17:04 Sodium Chloride IV 05/16/25 16:10 0.125 mcg/kg/min .[id number] BOUBACAR 6.8 mls/hr Protocol Administration 0.125 MCG/KG/MIN Amiodarone HCl 900 mg/ 518 mls @ 34.533 mls/hr 04/16/25 16:12 04/16/25 19:46 Dextrose IV 04/17/25 07:12 1 mg/min .Q15H1M BOUBACAR 34.53 mls/hr Protocol Administration 1 MG/MIN Bumetanide 10 mg/ Sodium 100 mls @ 10 mls/hr 04/16/25 19:14 04/16/25 20:08 Chloride IV 05/16/25 19:13 10 mls/hr .Q10H BOUBACAR Administration Lorazepam 0.5 mg 04/16/25 21:54 Lorazepam 0.5mg Tablet PO 05/16/25 21:53 BID PRN Anxiety Non-Formulary Medication 3 mg 04/17/25 09:00 Cariprazine [Vraylar] PO 05/17/25 08:59 DAILY BOUBACAR Non-Formulary Medication 1 each 04/17/25 09:00 Cholestyramine (With Sugar) PO 05/17/25 08:59 DAILY BOUBACAR Prazosin HCl 1 mg 04/16/25 21:56 Prazosin 1mg Cap PO 05/16/25 21:55 HS BOUBACAR Ropinirole HCl 4 mg 04/17/25 21:00 Ropinirole 1mg Tablet PO 05/17/25 20:59 HS BOUBACAR Discontinued Medications Generic Name Dose Route Start Last Admin Trade Name Freq PRN Reason Stop Dose Admin Bumetanide 2 mg 04/16/25 16:09 04/16/25 16:23 Bumetanide 1mg/4ml Vial IV 04/16/25 16:10 2 mg ONCE ONE Administration Amiodarone HCl 150 mg/ 103 mls @ 618 mls/hr 04/16/25 16:12 04/16/25 22:00 Dextrose IV 04/16/25 16:21 Infused ONCE ONE Infusion Protocol Iopamidol 90 ml 04/16/25 17:16 04/16/25 17:19 Iopamidol-370 (76%);100ml Bottle IV 04/16/25 17:17 90 ml ONCE ONE Administration Sodium Chloride 10 ml 04/16/25 17:16 04/16/25 17:19 Sodium Chloride 0.9% 10ml Syr (Rad Only) IV 04/16/25 17:17 10 ml ONCE ONE Administration Sodium Chloride 50 ml 04/16/25 17:16 04/16/25 17:18 0.9 % Sodium Chloride 50 Ml Vial IV 04/16/25 17:17 50 ml ONCE ONE Administration ORDERS Category Date Time Status CTA Chest [CT angio chest PE protocol] Stat Cat Scan 04/16/25 16:24 Completed Cardiology Consult [Consult to Cardiology] [CONS] Cons 04/16/25 17:48 Active Routine Chest XR -- portable [XR chest portable] Stat Exams 04/16/25 15:14 Completed POCUS Point of Care (ER Only) Stat Exams 04/16/25 15:32 Completed BNP [NT Pro Brain Natriuretic Pep.] Stat Lab 04/16/25 15:00 Completed Basic Metabolic Panel Q4H Lab 04/16/25 20:44 Completed Basic Metabolic Panel Q4H Lab 04/17/25 00:00 Ordered CBC [Complete Blood Count Auto Diff] Stat Lab 04/16/25 15:00 Completed Complete Blood Count Auto Diff AMLAB Lab 04/17/25 06:00 Ordered Comprehensive Metabolic Panel AMLAB Lab 04/17/25 06:00 Ordered Comprehensive Metabolic Panel Stat Lab 04/16/25 15:00 Completed D-Dimer Stat Lab 04/16/25 15:00 Completed Diarrhea 23 Panel, PCR Routine Lab 04/16/25 18:25 Ordered Lipase Stat Lab 04/16/25 15:00 Completed Lipid Panel AMLAB Lab 04/17/25 06:00 Ordered Magnesium AMLAB Lab 04/17/25 06:00 Ordered Magnesium Stat Lab 04/16/25 15:00 Completed Trop I [Troponin I] Stat Lab 04/16/25 15:00 Completed Medical Decision Narrative: patient is a 65-year-old female presenting to the emergency department for evaluation of erythema and edema to bilateral lower extremities. Patient is hemodynamically stable and nontoxic-appearing upon arrival, afebrile. Differential diagnosis includes CHF, cellulitis, among others. Workup will be conducted with hematologic labs, specific imaging. Patient does not show symptoms of DVT as this is bilateral and red circumferentially with blistering. Initial inventions include antibiotics. Initial workup reviewed by mo hematologic labs are remarkable for . White cell count of 6, sodium of 114, BNP of 1550, chest x-ray shows CHF read by myself and Dr. Carey. [facility] radiology reads are behind and have not been read at this time. Dr. Carey did a bedside POCUS and discovered that patient is an A-fib with RVR going between 100 and 130 and her heart rate. Dr. Carey talked to Dr. Pablo and Bev ordered 0.125 mg milrinone, 2 mg of Bumex and amiodarone drip. Those orders have been placed. I will also place patient on a DOAC, xarelto patient being admitted to Dr. Riggins for CHF. Dr. Carey will place a ultrasound-guided IV. <Mainor Carey MD - Last Filed: 04/16/25 22:08> Vital Signs: 04/16/25 14:02 04/16/25 15:30 04/16/25 16:01 Temperature 97.8 F Temperature Source Oral Pulse Rate 113 H Pulse Rate [Right Brachial] 100 H Respiratory Rate 18 14 Blood Pressure 135/81 168/97 H Blood Pressure [Right Arm] 149/78 H Blood Pressure Mean [Right Arm] 101 Blood Pressure Source [Right Arm] Automatic Cuff Blood Pressure Position [Right Arm] Sitting 02 Sat by Pulse Oximetry 98 98 97 Oxygen Delivery Method Room Air Room Air Room Air 04/16/25 16:31 04/16/25 17:48 04/16/25 18:00 Temperature Temperature Source Pulse Rate 110 H 125 H 104 H Pulse Rate [Right Brachial] Respiratory Rate 15 14 14 Blood Pressure 168/93 H 159/92 H 127/71 Blood Pressure [Right Arm] Blood Pressure Mean [Right Arm] Blood Pressure Source [Right Arm] Blood Pressure Position [Right Arm] 02 Sat by Pulse Oximetry 95 94 L 94 L Oxygen Delivery Method Room Air Room Air Room Air 04/16/25 18:36 04/16/25 18:38 04/16/25 18:45 Temperature 98.0 F Temperature Source Pulse Rate 121 H 111 H Pulse Rate [Right Brachial] Respiratory Rate 12 20 Blood Pressure 155/118 H 127/73 Blood Pressure [Right Arm] Blood Pressure Mean [Right Arm] Blood Pressure Source [Right Arm] Blood Pressure Position [Right Arm] 02 Sat by Pulse Oximetry 96 95 Oxygen Delivery Method Room Air Room Air Room Air Lab Data Lab Results 04/16/25 15:00: WBC 6.0, RBC 3.82 L, Hgb 11.4 L, Hct 32.9 L, MCV 86.1, MCH 29.8, MCHC 34.7, RDW 21.8 H, Plt Count 252, MPV 9.0, Neut % (Auto) 81.1 H, Lymph % (Auto) 7.5 L, Pender % (Auto) 6.2, Eos % (Auto) 3.7, Baso % (Auto) 0.2, Neut # (Auto) 4.9, Lymph # (Auto) 0.5 L, Pender # (Auto) 0.4, Eos # (Auto) 0.2, Baso # (Auto) 0.0, Total Counted 100, Neutrophils % (Manual) 89 H, Lymphocytes % (Manual) 7 L, Monocytes % (Manual) 2, Eosinophils % (Manual) 2, Platelet Estimate Normal, D-Dimer 1.00 H, Sodium 114 L*, Potassium 4.8, Chloride 79 L, Carbon Dioxide 27, Anion Gap 12.8, BUN 8, Creatinine 0.60, Estimated Creat Clear 53, Estimated GFR 101, Est GFR ( Amer) 122, Glucose 104 H, Calcium 8.9, Magnesium 1.7, Total Bilirubin 0.9, AST 21, ALT 15, Alkaline Phosphatase 158 H, Troponin I < 0.01, NT-Pro-B Natriuret Pep 1550 H, Total Protein 6.5, Albumin 4.1, Globulin 2.4, Albumin/Globulin Ratio 1.7, Lipase 24 Orders (Tests/Meds): ED MEDICATIONS Generic Name Dose Route Start Last Admin Trade Name Freq PRN Reason Stop Dose Admin Acetaminophen 650 mg 04/16/25 22:03 Acetaminophen 325mg Tab PO 05/16/25 22:02 Q6HP PRN Fever or Mild Pain (1-3) Amitriptyline HCl 10 mg 04/17/25 21:00 Amitriptyline 10mg Tablet PO 05/17/25 20:59 HS BOUBACAR Amitriptyline HCl 10 mg 04/16/25 22:04 Amitriptyline 10mg Tablet PO 04/16/25 22:05 ONCE ONE Diphenoxylate HCl/Atropine mg 04/16/25 21:54 Diphenoxylate/Atropine 2.5mg Tablet PO 05/16/25 21:53 DAILY PRN Diarrhea Enoxaparin Sodium 180 mg 04/16/25 17:45 04/16/25 21:07 Enoxaparin 100mg/Ml Syringe 1 mg/kg (180 mg) 05/16/25 17:44 180 mg SUBCUT Administration Q12H BOUBACAR Milrinone Lactate 20 mg/ 100 mls @ 6.804 mls/hr 04/16/25 16:11 04/16/25 17:04 Sodium Chloride IV 05/16/25 16:10 0.125 mcg/kg/min .[id number] BOUBACAR 6.8 mls/hr Protocol Administration 0.125 MCG/KG/MIN Amiodarone HCl 900 mg/ 518 mls @ 34.533 mls/hr 04/16/25 16:12 04/16/25 19:46 Dextrose IV 04/17/25 07:12 1 mg/min .Q15H1M BOUBACAR 34.53 mls/hr Protocol Administration 1 MG/MIN Bumetanide 10 mg/ Sodium 100 mls @ 10 mls/hr 04/16/25 19:14 04/16/25 20:08 Chloride IV 05/16/25 19:13 10 mls/hr .Q10H BOUBACAR Administration Lorazepam 0.5 mg 04/16/25 21:54 Lorazepam 0.5mg Tablet PO 05/16/25 21:53 BID PRN Anxiety Non-Formulary Medication 3 mg 04/17/25 09:00 Cariprazine [Vraylar] PO 05/17/25 08:59 DAILY BOUBACAR Non-Formulary Medication 1 each 04/17/25 09:00 Cholestyramine (With Sugar) PO 05/17/25 08:59 DAILY BOUBACAR Prazosin HCl 1 mg 04/16/25 21:56 Prazosin 1mg Cap PO 05/16/25 21:55 HS BOUBACAR Ropinirole HCl 4 mg 04/17/25 21:00 Ropinirole 1mg Tablet PO 05/17/25 20:59 HS BOUBACAR Discontinued Medications Generic Name Dose Route Start Last Admin Trade Name Freq PRN Reason Stop Dose Admin Bumetanide 2 mg 04/16/25 16:09 04/16/25 16:23 Bumetanide 1mg/4ml Vial IV 04/16/25 16:10 2 mg ONCE ONE Administration Amiodarone HCl 150 mg/ 103 mls @ 618 mls/hr 04/16/25 16:12 04/16/25 22:00 Dextrose IV 04/16/25 16:21 Infused ONCE ONE Infusion Protocol Iopamidol 90 ml 04/16/25 17:16 04/16/25 17:19 Iopamidol-370 (76%);100ml Bottle IV 04/16/25 17:17 90 ml ONCE ONE Administration Sodium Chloride 10 ml 04/16/25 17:16 04/16/25 17:19 Sodium Chloride 0.9% 10ml Syr (Rad Only) IV 04/16/25 17:17 10 ml ONCE ONE Administration Sodium Chloride 50 ml 04/16/25 17:16 04/16/25 17:18 0.9 % Sodium Chloride 50 Ml Vial IV 04/16/25 17:17 50 ml ONCE ONE Administration ORDERS Category Date Time Status CTA Chest [CT angio chest PE protocol] Stat Cat Scan 04/16/25 16:24 Completed Cardiology Consult [Consult to Cardiology] [CONS] Cons 04/16/25 17:48 Active Routine Chest XR -- portable [XR chest portable] Stat Exams 04/16/25 15:14 Completed POCUS Point of Care (ER Only) Stat Exams 04/16/25 15:32 Completed BNP [NT Pro Brain Natriuretic Pep.] Stat Lab 04/16/25 15:00 Completed Basic Metabolic Panel Q4H Lab 04/16/25 20:44 Completed Basic Metabolic Panel Q4H Lab 04/17/25 00:00 Ordered CBC [Complete Blood Count Auto Diff] Stat Lab 04/16/25 15:00 Completed Complete Blood Count Auto Diff AMLAB Lab 04/17/25 06:00 Ordered Comprehensive Metabolic Panel AMLAB Lab 04/17/25 06:00 Ordered Comprehensive Metabolic Panel Stat Lab 04/16/25 15:00 Completed D-Dimer Stat Lab 04/16/25 15:00 Completed Diarrhea 23 Panel, PCR Routine Lab 04/16/25 18:25 Ordered Lipase Stat Lab 04/16/25 15:00 Completed Lipid Panel AMLAB Lab 04/17/25 06:00 Ordered Magnesium AMLAB Lab 04/17/25 06:00 Ordered Magnesium Stat Lab 04/16/25 15:00 Completed Trop I [Troponin I] Stat Lab 04/16/25 15:00 Completed ECG Data Tracing #1: Independently interpreted by me rate is 106, rhythm is irregular, axis is normal, no ST elevation in anatomical contiguous leads, A-fib with RVR, QTc 380. Medical Decision Narrative: patient is a 65-year-old female presenting to the emergency department for evaluation of erythema and edema to bilateral lower extremities. Patient is hemodynamically stable and nontoxic-appearing upon arrival, afebrile. Differential diagnosis includes CHF, cellulitis, among others. Workup will be conducted with hematologic labs, specific imaging. Patient does not show symptoms of DVT as this is bilateral and red circumferentially with blistering. Initial inventions include antibiotics. Initial workup reviewed by me hematologic labs are remarkable for . White cell count of 6, sodium of 114, BNP of 1550, chest x-ray shows CHF read by myself and Dr. Carey. [facility] radiology reads are behind and have not been read at this time. Dr. Carey did a bedside POCUS and discovered that patient is an A-fib with RVR going between 100 and 130 and her heart rate. Dr. Carey talked to Dr. Pablo and Bev ordered 0.125 mg milrinone, 2 mg of Bumex and amiodarone drip. Those orders have been placed. I will also place patient on a DOAC, patient being admitted to Dr. Riggins for CHF. Dr. Carey will place a ultrasound-guided IV. Mainor Carey: Procedure: Procedure performed was ultrasound-guided IV placement. Procedure performed by Mainor Carey. Using real-time ultrasound guidance the right cephalic vein was cannulated with a long peripheral 18 gauge IV. The vessel cannulated was patent. Images were not saved to permanent archive. Patient tolerated the procedure well. There were no immediate complications. Mainor Carey: I was consulted by the SURJIT, and we discussed the complexity of the problems being addressed. I approved the treatment and management plan for this patient's care in the emergency department, thus performing a substantive portion of the medical decision making. Patient has multifactorial critical hyponatremia and new onset paroxysmal atrial fibrillation with rapid ventricular response that will be admitted for continued management at this time. Critical Care <Pilar Rivera (PETR), PATTERN HAND - Last Filed: 04/16/25 21:39> Critical Care Time Critical Care Time: No
[2025-04-16 15:21] LABS: Hematocrit 32.9 % (37.0-47.0); Hemoglobin 11.4 g/dL (12.2-16.2); Immature Granulocytes % 1.3 %; Mean Corpuscular HGB Conc 34.7 g/dL (31.8-35.4); Mean Corpuscular Hemoglobin 29.8 pg (27.0-31.2); Mean Corpuscular Volume 86.1 fl (81-99); Nucleated Red Blood Cells % 0 %; Platelet Count 252 K/mm3 (142-424); Red Blood Count 3.82 M/mm3 (4.20-5.40); Red Cell Distribution Width-SD 66.4 fL; White Blood Count 6.0 K/mm3 (4.8-10.8)
[2025-04-16 15:24] LABS: Alanine Aminotransferase 15 U/L (12-78); Albumin Level 4.1 g/dl (3.5-5.0); Albumin/Globulin Ratio 1.7 (1.1-1.8); Alkaline Phosphatase 158 U/L (38-126); Anion Gap 12.8 mEq/L (5-15); Aspartate Amino Transferase 21 U/L (14-36); Bilirubin,Total 0.9 mg/dl (0.2-1.3); Blood Urea Nitrogen 8 mg/dl (7-17); Calcium 8.9 mg/dl (8.4-10.2); Carbon Dioxide 27 mmol/L (22.0-30.0); Chloride 79 mmol/L (98-107); Creatinine Clearance Estimated 53 mL/min (50-200); Creatinine,Serum 0.60 mg/dl (0.52-1.04); Estimated Glomerular Filt Rate 101 ml/min (>60); GFR (African American) 122 ML/MIN (>60); Globulin 2.4 g/dL (1.3-3.2); Glucose 104 mg/dl (74-100); Lipase 24 U/L (23-300); Magnesium 1.7 mg/dl (1.6-2.3); Potassium 4.8 mmoL/L (3.5-5.1); Total Protein,Serum 6.5 g/dl (6.3-8.2)
[2025-04-16 15:27] LABS: Sodium 114 mmol/L (136-145)
[2025-04-16 15:33] LABS: NT Pro Brain Natriuretic Pep. 1550 pg/mL (0-125)
--- NOTE | 2025-04-16 15:42 | ECG_ITS ---
APPROVED REPORT Exam: Resting ECG HR:106 bpm ECG Measurements Heart Rate 106 AXES QRSd 84 QRS 32 QT 318 T 31 QTc 380 Conclusion ATRIAL FIBRILLATION WITH RAPID VENTRICULAR RESPONSE ABNORMAL RHYTHM ECG UNCONFIRMED REPORT Electronically signed by : CLAY MERCADO, 04/16/2025 23:59:23
[2025-04-16 16:17] LABS: D-Dimer 1.00 ug/mL (0.0-0.5)
[2025-04-16] MEDS: BUMETANIDE 1MG/4ML VIAL 2 MG IV (16:23)
--- NOTE | 2025-04-16 16:24 | CT_ITS ---
PROCEDURE INFORMATION: Exam: CTA Chest With Contrast Exam date and time: 04/16/2025 5:18 PM Age: 65 years old Clinical indication: Abnormal findings; Abnormal diagnostic tests; Elevated d-dimer; Shortness of breath; Additional info: Short of air dimer 1 TECHNIQUE: Imaging protocol: Computed tomographic angiography of the chest with contrast. Exam focused on the arteries. 3D rendering (Not supervised by radiologist): MIP and/or 3D reconstructed images were created by the technologist. Radiation optimization: All CT scans at this facility use at least one of these dose optimization techniques: automated exposure control; mA and/or kV adjustment per patient size (includes targeted exams where dose is matched to clinical indication); or iterative reconstruction. Contrast material: ISOVUE; Contrast volume: 90 ml; Contrast route: INTRAVENOUS (IV); COMPARISON: CT HR CHEST X3 11/14/2024 1:03 PM FINDINGS: Pulmonary arteries: Pulmonary arteries are unremarkable. Aorta: The aorta is unremarkable. No aneurysm. Lungs: There is a small calcified granuloma of the lower lobe, left lung. The lungs are otherwise unremarkable. Pleural spaces: Pleural spaces are unremarkable. No pneumothorax. No pleural effusion. Heart: There is cardiomegaly. Lymph nodes: No enlarged lymph nodes. Gallbladder and biliary ducts: Status post cholecystectomy. There is stable dilation of the visible extrahepatic bile ducts. Intestine: There is a Óscar-en-Y gastric bypass. Bones/joints: The visible bone anatomy is unremarkable. Soft tissues: The soft tissues are unremarkable. IMPRESSION: 1. No pulmonary embolus. 2. No acute cardiopulmonary process.
[2025-04-16 16:28] LABS: Troponin I < 0.01 ng/ml (0.00-0.034)
[2025-04-16 16:53] LABS: Total Cells Counted 100
[2025-04-16] MEDS: MILRINONE LACTATE 20 MG in 0.9 % SODIUM CHLORIDE 80 ML 6.8 MG IV (17:04)
[2025-04-16] MEDS: 0.9 % SODIUM CHLORIDE 50 ML VIAL IV (17:18)
[2025-04-16] MEDS: SODIUM CHLORIDE 0.9% 10ML SYR (RAD ONLY) 10 ML IV (17:19)
[2025-04-16] MEDS: IOPAMIDOL-370 (76%);100ML BOTTLE 90 ML IV (17:19)
--- NOTE | 2025-04-16 17:48 | P.HP_ITS ---
History of Present Illness *Admission Date: 04/16/25 *Reason for visit:: legs swelling, SOA, weight gain *History of present illness: Ms. Tracey is a 65-year-old female with morbid obesity, PTSD, hypertension and hyperlipidemia. History of gastric bypass surgery, has chronic diarrhea ever since. She presents to the ER with complaint of 3 weeks of increased swelling in her legs, weakness, shortness of breath. Has been taking HCTZ at home with no significant benefit. Presented to the ER with initial vitals showing tachycardia. EKG obtained showing A-fib which appears to be a new diagnosis. Also has significant lower extremity edema and says she feels full and swollen in her abdomen. Initial labs showed normal white count. Kidney function normal with BUN 8, creatinine 0.6. BNP 1500. Sodium 114 and chloride 79. Appears frankly volume overloaded. Medicine consulted for admission and further management of new onset A-fib and volume overload. Cardiology was consulted and recommended amiodarone and anticoagulation. Patient admitted to ICU due to drips. Remained stable on room air at this time. Denies chest pain, nausea, vomiting. Denies any fever. Alert and oriented x 4. [facility] Disclaimer: The information contained in this section may have been updated after the patient was seen, as this information can be updated by other users. Medical History Sneezing Sinus pain Nasal pain Deviated septum BMI 60.0-69.9, adult Anemia Vitamin D deficiency YUNG (obstructive sleep apnea) Restrictive lung disease Dyspnea on exertion Dyspnea Chest pain Vitamin B12 deficiency Frequent nocturnal awakening Chronic back pain Osteoarthritis Obesity Hyperlipidemia Essential hypertension Depressed Hypertension Chronic diarrhea Surgical History History of cholecystectomy History of tonsillectomy and adenoidectomy History of gastric bypass Hx of hysterectomy Hx of hernia repair History of ankle surgery Hx of total knee replacement Family History Other Cancer Diabetes Hyperlipidemia Hypertension Stroke Social History Smoking Status: Never smoker alcohol intake: never substance use type: denies use current occupational status: unemployed Travel in the last 8 weeks?: None household members: significant other housing: house marital status: single number of children: 1 Have you lived/traveled outside [place] in past 30 days?: No Contact w/someone who lives/traveled outside US past 30 days?: No Exposure to someone with infectious disease in past 14 days?: No Do you have a fever (greater than 100.4 F or 38 C)?: No Have you tested positive for COVID-19?: No Exposed to someone with COVID-19 in past 14 days?: No Do you have a sore throat?: No Do you have a cough?: No Do you have any weakness?: No Do you have any diarrhea?: No Are you experiencing any unusual bleeding?: No Do you have any muscle aches/pain?: No Do you have any abdominal pain?: No Are you experiencing loss of taste or smell?: No Other Medical History Have you received the Flu Vaccine for this season: Yes Have you received the Pneumonia Vaccine: No Review of Systems Review of Systems Review of systems (narrative): 14 point review of systems performed, pertinent positives and negatives as per HPI Meds Home Medications and Allergies Home Medications ?Medication ?Instructions ?Recorded ?Confirmed ?Type cholestyramine (with sugar) 4 gram 1 ea PO DAILY 09/0904/16/25 History oral powder diphenoxylate-atropine 2.5 1 tab PO DAILY PRN Diarrhea 09/09/23 04/16/25 History mg-0.025 mg tablet triamcinolone acetonide 0.1 % 1 applic topical QID Red ness, 08/09/24 04/16/25 Rx topical cream itching 30 days #30 grams cyanocobalamin (vitamin B-12) 1,000 mcg PO DAILY #30 t abs 10/11/24 04/16/25 Rx 1,000 mcg tablet prazosin 1 mg capsule 1 mg PO HS #30 caps 11/07/24 04/16/25 Rx blood pressure monitor #1 ea 11/29/24 03/02/25 Rx cariprazine 3 mg capsule (Vraylar) 3 mg PO DAILY #30 c aps 01/02/25 04/16/25 Rx desvenlafaxine succinate 100 mg See Rx Instructions .R oute 01/30/25 04/16/25 Rx tablet,extended release 24 hr .COMPLEX #30 tabs cholecalciferol (vitamin D3) 125 125 mcg PO DAILY #90 tabs 02/01/25 04/16/25 Rx mcg (5,000 unit) tablet (Vitamin D3) lisinopril 30 mg tablet 30 mg PO DAILY #30 tabs 01/1104/16/25 Rx ferumoxytol 510 mg/17 mL (30 510 mg (17 mL) IV Q3D 2 d oses 02/15/25 03/02/25 Rx mg/mL) intravenous solution (Feraheme) amitriptyline 10 mg tablet 10 - 20 mg (1 - 2 x 10 mg) PO HS 02/16/25 04/16/25 Rx #60 tabs hydrochlorothiazide 25 mg tablet 25 mg PO DAILY #90 ta bs 03/01/25 04/16/25 Rx atorvastatin 10 mg tablet 10 mg PO DAILY #90 tabs 03/1404/16/25 Rx lorazepam 0.5 mg tablet 0.5 mg PO BID PRN anxiety #3 0 tabs 04/04/25 04/16/25 Rx meloxicam 15 mg tablet 15 mg PO DAILY #30 tabs 03/1404/16/25 Rx ropinirole 4 mg tablet 4 mg PO HS #30 tabs 04/04/25 04/16/25 Rx New Prescriptions to Start Prescriptions: Allergies Allergy/AdvReac Type Severity Reaction Status Date / Time morphine AdvReac Intermediate Nausea Verified 03/28/25 14:42 Exam Data for Last 24 hours Vital signs and Labs for Last 24 Hours: Temp Pulse Resp BP Pulse Ox O2 Del Method 97.8 F 110 H 15 168/93 H 95 Room Air 04/16/25 14:02 04/16/25 16:31 04/16/25 16:31 04/16/25 16:31 04/16/25 16:31 04/16/25 16:31 Laboratory Results - last 24 hr 04/16/25 15:00: WBC 6.0, RBC 3.82 L, Hgb 11.4 L, Hct 32.9 L, MCV 86.1, MCH 29.8, MCHC 34.7, RDW 21.8 H, Plt Count 252, MPV 9.0, Neut % (Auto) 81.1 H, Lymph % (Auto) 7.5 L, Sunflower % (Auto) 6.2, Eos % (Auto) 3.7, Baso % (Auto) 0.2, Neut # (Auto) 4.9, Lymph # (Auto) 0.5 L, Sunflower # (Auto) 0.4, Eos # (Auto) 0.2, Baso # (Auto) 0.0, Total Counted 100, Neutrophils % (Manual) 89 H, Lymphocytes % (Manual) 7 L, Monocytes % (Manual) 2, Eosinophils % (Manual) 2, Platelet Estimate Normal, D-Dimer 1.00 H, Sodium 114 L*, Potassium 4.8, Chloride 79 L, Carbon Dioxide 27, Anion Gap 12.8, BUN 8, Creatinine 0.60, Estimated Creat Clear 53, Estimated GFR 101, Est GFR ( Amer) 122, Glucose 104 H, Calcium 8.9, Magnesium 1.7, Total Bilirubin 0.9, AST 21, ALT 15, Alkaline Phosphatase 158 H, Troponin I < 0.01, NT-Pro-B Natriuret Pep 1550 H, Total Protein 6.5, Albumin 4.1, Globulin 2.4, Albumin/Globulin Ratio 1.7, Lipase 24 I & O for Last 24 hours: Intake & Output 04/13/25 04/14/25 04/15/25 04/16/25 23:59 23:59 23:59 23:59 Weight 181.437 kg Constitutional Constitutional: mild distress, morbidly obese, chronically ill appearing and cooperative *Routine HEENT Exam Head: Present normocephalic Eye: Present EOMI and PERRL ENT: Present mucous membranes moist *Routine Neck Exam Neck: Present supple; Absent lymphadenopathy *Routine Respiratory Exam Respiratory: Present CTA bilaterally and distant breath sounds; Absent wheezes or crackles *Routine Cardiovascular Exam Cardiovascular: Present tachycardia and irregularly irregular *Routine Abdominal Exam Abdominal: Present soft, normoactive bowel sounds, distended and obese; Absent tenderness Comments: edema of pannus *Routine Rectal Exam Rectal:: deferred *Routine Genitalia Exam Genitalia:: normal female *Routine Extremities Exam Extremities: Present edema (3+ to thighs); Absent cyanosis or clubbing Comments: Well-healed scar over right knee from previous surgery *Routine Skin Exam Skin: Present intact and warm; Absent cyanosis or rash Comments: Staining of the lower extremities consistent with hapten interaction or side effect of NSAID. *Routine Neurological Exam Neurological: Present alert, oriented X3 and moving all extremities; Absent altered mental status Assessment and Plan *Assessment and plan (1) New onset a-fib: Status: Acute Category: Medical Code(s): I48.91 - Unspecified atrial fibrillation (2) Hyponatremia: Status: Acute Category: Medical Code(s): E87.1 - Hypo-osmolality and hyponatremia (3) Hypochloremia: Status: Acute Category: Medical Code(s): E87.8 - Other disorders of electrolyte and fluid balance, not elsewhere classified (4) CHF (congestive heart failure): Status: Acute Category: Medical Code(s): I50.9 - Heart failure, unspecified (5) BMI 60.0-69.9, adult: Status: Chronic Category: Medical Code(s): Z68.44 - Body mass index [BMI] 60.0-69.9, adult (6) History of bariatric surgery: Status: Chronic Category: Surgical Code(s): Z98.84 - Bariatric surgery status (7) YUNG (obstructive sleep apnea): Status: Chronic Category: Medical Code(s): G47.33 - Obstructive sleep apnea (adult) (pediatric) (8) Major depressive disorder: Status: Acute Qualifiers: Active/Remission status: currently active Major depression episode severity: moderate Major depression recurrence: recurrent Qualified Code(s): F33.1 - Major depressive disorder, recurrent, moderate Category: Medical Code(s): F32.9 - Major depressive disorder, single episode, unspecified (9) Essential hypertension: Status: Chronic Category: Medical Code(s): I10 - Essential (primary) hypertension (10) Hyperlipidemia: Status: Chronic Qualifiers: Hyperlipidemia type: unspecified Qualified Code(s): E78.5 - Hyperlipidemia, unspecified Category: Medical Code(s): E78.5 - Hyperlipidemia, unspecified Plan 65-year-old morbidly obese female with history of PTSD and hypertension. Presented with increased swelling in her legs and weight gain over the past 3 weeks. Workup in the ER concerning for CHF, volume overload, new onset A-fib. Discussed case with ER physician, request admission for further management of new onset A-fib and cardiology consult. I agreed and decided to admit to the ICU for further care. Initiating on amiodarone, Lovenox, Bumex drip. Close monitoring of sodium correction given her hyponatremia of 114. Problems addressed as follows: New onset A-fib CHF, unspecified Volume overload -Patient frankly volume overloaded on exam. EKG from ER reviewed, patient in A- fib with RVR. Initiate amiodarone load and drip. Will transition to oral amiodarone tomorrow. Cardiology consulted to assist with care. - Initiate on 1 nellie per kilogram twice daily Lovenox. Will transition to oral DOAC prior to discharge home - Initiate Bumex drip for aggressive diuresis due to emily volume overload. BNP 1500. Has 3+ edema to her thighs and edema of the lower abdominal wall. - Kidney function normal with BUN 8, creatinine 0.6. - Previous TSH and A1c within normal range. TSH 6.5 A1c 4.9 on admission. - Will place Gar for strict monitoring of output while on bumex gtt; has had significant output so for with over 1-1/2 L of output since admission - Calcium 8.9, magnesium 1.7. Will replace per protocol if needed Hyponatremia Hypochloremia -Over the past year her high sodium is 131. This is well off her baseline however. Unclear the etiology. Concern for side effect of dietary, free water load, medication side effect from antidepressants/anxiety meds. - Will hold HCTZ. - Monitor for improvement with diuresis and loss of free water using loop diuretic as above - BMP ordered every 4 hours. Goal correction rate of 8 to 10 mEq/day - Will consider hypertonic saline if seeing if drop any further on close monitoring - BMP, CBC, magnesium ordered for the morning PTSD/depression: Continue home amitriptyline 10 to 20 mg nightly, lorazepam 0.5 mg twice daily as needed, prazosin 1 mg nightly, ropinirole 4 mg nightly for restless leg, and desvenlafaxine 100 mg extended release daily Morbid obesity: BMI of 64. Complicates all aspects of her care; previous bariatric surgery. Recommend follow-up with PCP to discuss medical assisted weight loss. Would benefit from GLP-1 - History of gastric bypass, has had significant diarrhea since. Will continue cholestyramine 4 g daily as needed. Will also obtain diarrhea panel to rule out infectious etiology. Full code Lovenox 1 mg/kg twice daily, will transition to oral anticoagulation prior to discharge Regular diet
[2025-04-16] MEDS: AMIODARONE HCL 150 MG in DEXTROSE 5 % IN WATER 100 ML 618 MG IV (19:21)
--- NOTE | 2025-04-16 19:37 | PC.NURSE ---
Patient arrived to ICU unit via stretcher from ED @19:02
[2025-04-16] MEDS: AMIODARONE HCL 900 MG in DEXTROSE 5 % IN WATER 500 ML 34.53 MG IV (19:46)
[2025-04-16] MEDS: BUMETANIDE 10 MG in 0.9 % SODIUM CHLORIDE 60 ML IV (20:08)
[2025-04-16 20:22] LABS: Sodium,Urine Random 39.0 mmol/L (30-90)
[2025-04-16 21:07] LABS: Anion Gap 9.9 mEq/L (5-15); Blood Urea Nitrogen 8 mg/dl (7-17); Calcium 8.5 mg/dl (8.4-10.2); Carbon Dioxide 30 mmol/L (22.0-30.0); Chloride 81 mmol/L (98-107); Creatinine Clearance Estimated 53 mL/min (50-200); Creatinine,Serum 0.50 mg/dl (0.52-1.04); Estimated Glomerular Filt Rate 124 ml/min (>60); GFR (African American) 150 ML/MIN (>60); Glucose 153 mg/dl (74-100); Potassium 3.9 mmoL/L (3.5-5.1); Sodium 117 mmol/L (136-145)
[2025-04-16 21:28] LABS: Hemoglobin A1C 4.9 % (4.0-6.0)
[2025-04-16 21:52] LABS: Thyroid Stimulating Hormone 6.15 uIU/mL (0.465-4.68)
[2025-04-16] MEDS: AMITRIPTYLINE 10MG TABLET 10 MG PO (22:15)
[2025-04-16] MEDS: PRAZOSIN 1MG CAP 1 MG PO (22:15)
[2025-04-16] MEDS: ACETAMINOPHEN 325MG TAB 650 MG PO (22:15)
[2025-04-17] VITALS (32 sets, daily range): BP systolic 67–125; BP diastolic 39–69; PULSE 72–136; RESP 11–22; TEMP 36.2–37.5; O2SAT 92–96; BMI 62.8
[2025-04-17] MEDS: LACTATED RINGERS 1000ML 500 ML IV (01:18)
[2025-04-17 01:37] LABS: Anion Gap 10.4 mEq/L (5-15); Blood Urea Nitrogen 9 mg/dl (7-17); Calcium 8.1 mg/dl (8.4-10.2); Carbon Dioxide 29 mmol/L (22.0-30.0); Chloride 81 mmol/L (98-107); Creatinine Clearance Estimated 53 mL/min (50-200); Creatinine,Serum 0.70 mg/dl (0.52-1.04); Estimated Glomerular Filt Rate 84 ml/min (>60); GFR (African American) 102 ML/MIN (>60); Glucose 107 mg/dl (74-100); Potassium 3.4 mmoL/L (3.5-5.1); Sodium 117 mmol/L (136-145)
[2025-04-17] MEDS: RINGERS SOLUTION,LACTATED 500 ML IV (03:58)
[2025-04-17] MEDS: ONDANSETRON 4MG/2ML VIAL 4 MG IV (03:58)
[2025-04-17 06:34] LABS: Hematocrit 27.8 % (37.0-47.0); Immature Granulocytes % 1.6 %; Mean Corpuscular HGB Conc 33.1 g/dL (31.8-35.4); Mean Corpuscular Hemoglobin 29.0 pg (27.0-31.2); Mean Corpuscular Volume 87.7 fl (81-99); Nucleated Red Blood Cells % 0 %; Platelet Count 198 K/mm3 (142-424); Red Blood Count 3.17 M/mm3 (4.20-5.40); Red Cell Distribution Width-SD 68.4 fL; White Blood Count 4.5 K/mm3 (4.8-10.8)
[2025-04-17] MEDS: CALCIUM GLUC IN NACL, ISO-OSM 1 GM/50 ML BAG IV (07:04)
[2025-04-17 07:56] LABS: RBC Morphology Normal; Total Cells Counted 100
[2025-04-17] MEDS: POTASSIUM CHLORIDE 20MEQ TAB 40 MEQ PO ×2 (08:04→12:12)
[2025-04-17] MEDS: CHOLESTYRAMINE 4 GM PO (08:05)
[2025-04-17] MEDS: MILRINONE LACTATE 20 MG in 0.9 % SODIUM CHLORIDE 80 ML 6.53 MG IV (08:21)
[2025-04-17 08:22] LABS: Hemoglobin 9.2 g/dL (12.2-16.2)
--- NOTE | 2025-04-17 08:26 | HMH.PHAINT1 ---
Pharmacy Intervention Comments: MEDICATION RECONCILIATION COMPLETED ON PATIENT USING EXTERNAL FILL HISTORY FROM PHARMACY. -GREGORIO FULLER, TARAD
[2025-04-17 08:36] LABS: Albumin Level 3.0 g/dl (3.5-5.0)
[2025-04-17 08:37] LABS: Chloride 80 mmol/L (98-107); Potassium 3.5 mmoL/L (3.5-5.1); Sodium 116 mmol/L (136-145)
[2025-04-17 08:39] LABS: Alanine Aminotransferase 11 U/L (12-78); Alkaline Phosphatase 124 U/L (38-126); Anion Gap 9.5 mEq/L (5-15); Aspartate Amino Transferase 15 U/L (14-36); Bilirubin,Total 0.7 mg/dl (0.2-1.3); Blood Urea Nitrogen 10 mg/dl (7-17); Carbon Dioxide 30 mmol/L (22.0-30.0); Creatinine Clearance Estimated 53 mL/min (50-200); Creatinine,Serum 0.80 mg/dl (0.52-1.04); Estimated Glomerular Filt Rate 72 ml/min (>60); GFR (African American) 87 ML/MIN (>60)
[2025-04-17 08:40] LABS: Albumin/Globulin Ratio 1.3 (1.1-1.8); Calcium 8.2 mg/dl (8.4-10.2); Cholesterol 114 mg/dl (140-200); Globulin 2.4 g/dL (1.3-3.2); Glucose 121 mg/dl (74-100); HDL Cholesterol 69 mg/dl (40-60); Magnesium 1.5 mg/dl (1.6-2.3); Total Protein,Serum 5.4 g/dl (6.3-8.2); Triglycerides 63 mg/dl (30-150)
--- NOTE | 2025-04-17 09:25 | US_ITS ---
FINAL REPORT TECHNIQUE: Sonographic images of the right upper quadrant were obtained. CLINICAL HISTORY: Eval for cirrhosis, ascites FINDINGS: PANCREAS: Obscured. LIVER: Homogeneous. No focal hepatic lesion. No intrahepatic biliary ductal dilatation. GALLBLADDER: Absent COMMON DUCT: 5 mm. Normal for age. RIGHT KIDNEY: The right kidney measures 10.2 cm. There is cortical thinning. There is no hydronephrosis, mass, or stone. FREE FLUID: None. IMPRESSION: Right renal cortical thinning. Otherwise, unremarkable exam. Reviewed, Interpreted and Dictated by Layne Contreras MD Transcribed by Yolis Johnston Authenticated and [facility]
[2025-04-17 10:08] LABS: INR 1.09 (0.9-1.1); Prothrombin Time 12.0 seconds (10.1-12.5)
--- NOTE | 2025-04-17 10:11 | HMH.PTEV ---
Physical Therapy Evaluation Rehab PT IP Evaluation Start: 04/16/25 21:40 Freq: ONCE Status: Active Protocol: Document 04/17/25 10:05 CHRIS (Rec: 04/17/25 10:10 CHRIS [id number]) Subjective/History History History Per H&P: Ms. Tracey is a 65-year-old female with morbid obesity, PTSD, hypertension and hyperlipidemia. History of gastric bypass surgery, has chronic diarrhea ever since. She presents to the ER with complaint of 3 weeks of increased swelling in her legs, weakness, shortness of breath. Has been taking HCTZ at home with no significant benefit. Presented to the ER with initial vitals showing tachycardia. EKG obtained showing A-fib which appears to be a new diagnosis. Also has significant lower extremity edema and says she feels full and swollen in her abdomen. Initial labs showed normal white count. Kidney function normal with BUN 8, creatinine 0.6. BNP 1500. Sodium 114 and chloride 79. Appears frankly volume overloaded. Medicine consulted for admission and further management of new onset A-fib and volume overload. Cardiology was consulted and recommended amiodarone and anticoagulation. Subjective Subjective Pt reports she lives in a home with her . Pt's works FT at night. Pt reports she is normally able to ambulate using a RW. Pt has a ramped entrance into her single-story home. Pt denies any falls in the past [address]. New diagnosis of No cancer in past 12 months? [facility] How much help from another person do you currently need... Turning from your None back to your side while in a flat bed without using bedrails? Moving from lying on A little back to sitting on the side of a flat bed without using bedrails? Moving to and from a None bed to a chair ( including a wheelchair)? Standing up from a None chair using your arms? (e.g., wheelchair, bedside chair) Walking in hospital A little room? Climbing 3-5 steps A little with a railing? Mobility Score 21 Mobility Level [place] Mobility 6 Walk 10 steps or more Mobility Calculator Rehab PT IP Eval Objective Appearance Patient Behavior Appropriate,Cooperative Patient Orientation Person,Place,Situation Difficulty following none instructions Speech Pattern Clear Ambulation Patient Able to Yes Ambulate Ambulation Observation IP General Gait Wide Based Gait Pattern Observation Ambulation Distance 22 (feet) Ambulation Assistive Rolling Walker Device Ambulation Ability Supervision/Stand by Balance Ability to Arise Able, uses arms to help Sitting Balance Steady, safe Standing Balance Steady, wide stance Dynamic Sitting Good Balance Ability Dynamic Standing Good Balance Ability Transfers Bed Transfer Ability Minimal x 1 (25% assist) Sit to Stand Bed Supervision/Stand by Transfer Ability Rehab PT IP prob,goals,plan Problems Date of Evaluation: 04/17/25 PT IP Problems Bed Mobility,Transfers,Gait,Balance,Self care,Safety Rehab Potential Rehab Potential Good Plan PT Intervention Plan Bed Mobility,Transfers,Gait,Balance,Self care,Safety, Therapeutic Exercise Other Intervention 1-2 times Plan PT Plan Frequency Daily Duration LOS Discharge Goals Bed Transfer Ability Independent Sit to Stand Chair Independent Transfer Ability Ambulation Assistive Rolling Walker Device Ambulation Distance 40 (feet) Discharge Plan PT Discharge Plan Pt presents below baseline in strength and endurance and would benefit from skilled acute care PT while at [facility]. Pt most appropriate to d/c home once medically stable d /t current level of mobility and home set-up. PT recommending PT services upon d/c from [facility]. Eval Complexity Eval Charge Codes 89474 - Moderate Complexity PHYSICIAN CERTIFICATION: I certify the specified therapy services for Asia Tracey are required, authorized, and reviewed every 30 days.
--- NOTE | 2025-04-17 10:24 | HMH.PTWOUND ---
Rehab Wound Evaluation Rehab IP Wound Evaluation Start: 04/16/25 21:40 Freq: ONCE Status: Active Protocol: Document 04/17/25 10:22 FRANKI (Rec: 04/17/25 10:24 FRANKI [id number]) Rehab PT Wound Assessment Subjective Subjective 65 yowf adm to [facility] with fluid overload. PT acute wound consult received. Pt has no open wounds noted at this time. Plan/Recommendation Comment Pt presents with B LE redness with rash. No current open wounds noted. No current skilled acute PT wound care interventions necessary. PHYSICIAN CERTIFICATION: I certify the specified therapy services for Asia Tracey are required, authorized, and reviewed every 30 days.
--- NOTE | 2025-04-17 11:09 | PC.NURSE ---
spoke with alpesh lopes about patient care. was instructed to stop milrinone and bumex at this time. continue amiodarone until this evening as ordered. instructed to give 400mg of po amiodarone at noon, and again at 2000 when gtt turns off. then bid for tomorrow. okay to make stepdown per dr mabry. filter placed on amiodarone drip, iv sites checked both with good blood draw and flushed well.
[2025-04-17 12:03] LABS: Free T4 (Free Thyroxine) 2.00 ng/dl (0.78-2.19)
[2025-04-17] MEDS: AMIODARONE 200MG TABLET 400 MG PO (12:12)
[2025-04-17 12:15] LABS: Sodium,Urine Random 5.0 mmol/L (30-90)
[2025-04-17 13:29] LABS: Thyroid Stimulating Hormone 4.49 uIU/mL (0.465-4.68)
[2025-04-17] MEDS: dilTIAZem HCL 180MG CAP.ER.24H 180 MG PO (13:52)
[2025-04-17] MEDS: APIXABAN 5MG TABLET 5 MG PO ×2 (13:52→20:59)
[2025-04-17] MEDS: BISOPROLOL 5MG TABLET 5 MG PO (13:52)
--- NOTE | 2025-04-17 13:58 | EXP.CARD.CON ---
History of Present Illness History of Present Illness Consult date: 04/17/25 Requesting physician: Baudilio Riggins Consult reason: congestive heart failure and shortness of breath Chief complaint: SOA, CHF, edema, A. Fib with RVr Additional Medical History:: 1. Atrial fibrillation with RVR, new onset, 04/16/2025 2. HFpEF, 04/16/2025 3. History of bariatric surgery 4. Morbid obesity with BMI of 62.8, 04/16/2025 5. PTSD/depression/generalized anxiety disorder History of present illness: Ms. Tracey is a 65-year-old female with morbid obesity, PTSD, hypertension and hyperlipidemia. History of gastric bypass surgery, has chronic diarrhea ever since. She presents to the ER with complaint of 3 weeks of increased swelling in her legs, weakness, shortness of breath. Has been taking HCTZ at home with no significant benefit. Presented to the ER with initial vitals showing tachycardia. EKG obtained showing A-fib which appears to be a new diagnosis. Also has significant lower extremity edema and says she feels full and swollen in her abdomen. Initial labs showed normal white count. Kidney function normal with BUN 8, creatinine 0.6. BNP 1500. Sodium 114 and chloride 79. Appears frankly volume overloaded. Medicine consulted for admission and further management of new onset A-fib and volume overload. Cardiology was consulted and recommended amiodarone and anticoagulation. The above per Dr. Riggins. Patient diuresed just over 2 L of fluid on IV Bumex. However this did result in a drop in her systolic pressure with subsequent discontinuation of the IV Bumex. Patient was also started on milrinone overnight but without diuresis we will discontinue that as well. In light of the chronicity being unknown of her A-fib we will also discontinue amiodarone in favor of rate control with anticoagulation until period of time of 30 days before consideration of cardioversion. [facility] Disclaimer: The information contained in this section may have been updated after the patient was seen, as this information can be updated by other users. Medical History Sneezing Sinus pain Nasal pain Deviated septum BMI 60.0-69.9, adult Anemia Vitamin D deficiency YUNG (obstructive sleep apnea) Restrictive lung disease Dyspnea on exertion Dyspnea Chest pain Vitamin B12 deficiency Frequent nocturnal awakening Chronic back pain Osteoarthritis Obesity Hyperlipidemia Essential hypertension Depressed Hypertension Chronic diarrhea Surgical History History of cholecystectomy History of tonsillectomy and adenoidectomy History of gastric bypass Hx of hysterectomy Hx of hernia repair History of ankle surgery Hx of total knee replacement Family History Other Cancer Diabetes Hyperlipidemia Hypertension Stroke Social History Smoking Status: Never smoker alcohol intake: never substance use type: denies use current occupational status: unemployed Travel in the last 8 weeks?: None household members: significant other housing: house marital status: single number of children: 1 Have you lived/traveled outside [place] in past 30 days?: No Contact w/someone who lives/traveled outside US past 30 days?: No Exposure to someone with infectious disease in past 14 days?: No Do you have a fever (greater than 100.4 F or 38 C)?: No Have you tested positive for COVID-19?: No Exposed to someone with COVID-19 in past 14 days?: No Do you have a sore throat?: No Do you have a cough?: No Do you have any weakness?: No Do you have any diarrhea?: No Are you experiencing any unusual bleeding?: No Do you have any muscle aches/pain?: No Do you have any abdominal pain?: No Are you experiencing loss of taste or smell?: No Review of Systems Review of Systems Review of systems:: pertinent systems reviewed and negative unless documented below *Cardiovascular Cardiovascular: Reports dyspnea, Reports dyspnea on exertion and Reports leg edema *Respiratory Respiratory: Reports dyspnea and Reports dyspnea on exertion Exam Data for Last 24 hours Vital signs and Labs for Last 24 Hours: Temp Pulse Resp BP Pulse Ox O2 Del Method 98.4 F 117 H 15 125/69 94 L Room Air 04/17/25 12:00 04/17/25 12:00 04/17/25 12:00 04/17/25 12:00 04/17/25 12:00 04/17/25 11:15 Laboratory Results - last 24 hr 04/16/25 15:00: WBC 6.0, RBC 3.82 L, Hgb 11.4 L, Hct 32.9 L, MCV 86.1, MCH 29.8, MCHC 34.7, RDW 21.8 H, Plt Count 252, MPV 9.0, Neut % (Auto) 81.1 H, Lymph % (Auto) 7.5 L, Lucas % (Auto) 6.2, Eos % (Auto) 3.7, Baso % (Auto) 0.2, Neut # (Auto) 4.9, Lymph # (Auto) 0.5 L, Lucas # (Auto) 0.4, Eos # (Auto) 0.2, Baso # (Auto) 0.0, Total Counted 100, Neutrophils % (Manual) 89 H, Lymphocytes % (Manual) 7 L, Monocytes % (Manual) 2, Eosinophils % (Manual) 2, Platelet Estimate Normal, D-Dimer 1.00 H, Sodium 114 L*, Potassium 4.8, Chloride 79 L, Carbon Dioxide 27, Anion Gap 12.8, BUN 8, Creatinine 0.60, Estimated Creat Clear 53, Estimated GFR 101, Est GFR ( Amer) 122, Glucose 104 H, Calcium 8.9, Magnesium 1.7, Total Bilirubin 0.9, AST 21, ALT 15, Alkaline Phosphatase 158 H, Troponin I < 0.01, NT-Pro-B Natriuret Pep 1550 H, Total Protein 6.5, Albumin 4.1, Globulin 2.4, Albumin/Globulin Ratio 1.7, Lipase 24 04/16/25 19:20: Urine Sodium 39.0 04/16/25 20:44: Sodium 117 L, Potassium 3.9, Chloride 81 L, Carbon Dioxide 30, Anion Gap 9.9, BUN 8, Creatinine 0.50 L, Estimated Creat Clear 53, Estimated GFR 124, Est GFR ( Amer) 150 D, Glucose 153 H D, Hemoglobin A1c 4.9, Calcium 8.5, TSH 6.15 H 04/17/25 01:02: Sodium 117 L, Potassium 3.4 L, Chloride 81 L, Carbon Dioxide 29, Anion Gap 10.4, BUN 9, Creatinine 0.70 D, Estimated Creat Clear 53, Estimated GFR 84, Est GFR ( Amer) 102 D, Glucose 107 H D, Calcium 8.1 L 04/17/25 05:37: WBC 4.5 L, RBC 3.17 L, Hgb 9.2 L D, Hct 27.8 L, MCV 87.7, MCH 29.0, MCHC 33.1, RDW 22.0 H, Plt Count 198, MPV 9.5, Neut % (Auto) 76.4, Lymph % (Auto) 8.8 L, Lucas % (Auto) 9.7 H, Eos % (Auto) 3.1, Baso % (Auto) 0.4, Neut # (Auto) 3.4, Lymph # (Auto) 0.4 L, Lucas # (Auto) 0.4, Eos # (Auto) 0.1, Baso # (Auto) 0.0, Total Counted 100, Neutrophils % (Manual) 81 H, Band Neutrophils % 2.0, Lymphocytes % (Manual) 8 L, Monocytes % (Manual) 9, Platelet Estimate Normal, RBC Morphology Normal, Sodium 116 L, Potassium 3.5, Chloride 80 L, Carbon Dioxide 30, Anion Gap 9.5, BUN 10, Creatinine 0.80, Estimated Creat Clear 53, Estimated GFR 72, Est GFR ( Amer) 87, Glucose 121 H, Calcium 8.2 L, Magnesium 1.5 L D, Total Bilirubin 0.7, AST 15 D, ALT 11 L D, Alkaline Phosphatase 124, Total Protein 5.4 L, Albumin 3.0 L D, Globulin 2.4, Albumin/Globulin Ratio 1.3, Triglycerides 63, Cholesterol 114 L, LDL Cholesterol Direct < 30.00 L, VLDL Cholesterol 13, HDL Cholesterol 69 H, Cholesterol/HDL Ratio 1.7, TSH 4.49 D, Free T4 2.00 04/17/25 09:43: Urine Sodium 5.0 L 04/17/25 09:45: PT 12.0, INR 1.09 I & O for Last 24 hours: Intake & Output 04/15/25 04/16/25 04/17/25 04/18/25 11:59 11:59 11:59 11:59 Intake Total 2083.886 / 2083.886 466.952 / 466.952 Output Total 4585 / 4585 Balance -2501.114 / -2501.114 466.952 / 466.952 Weight 390 lb 15.837 oz Constitutional Constitutional: no acute distress *Routine Respiratory Exam Respiratory: Present decreased breath sounds and diminished air movement; Absent rales, rhonchi or wheezes *Routine Cardiovascular Exam Cardiovascular: Present tachycardia and irregularly irregular *Routine Extremities Exam Extremities: Present edema Meds Home Medications and Allergies Home Medications ?Medication ?Instructions ?Recorded ?Confirmed ?Type cholestyramine (with sugar) 4 gram 1 ea PO DAILY 09/09/23 04/16/25 History oral powder diphenoxylate-atropine 2.5 1 tab PO BID 09/09/23 04/17/25 History mg-0.025 mg tablet cyanocobalamin (vitamin B-12) 1,000 mcg PO DAILY #30 tabs 10/11/24 04/16/25 Rx 1,000 mcg tablet blood pressure monitor #1 ea 11/29/24 03/02/25 Rx cariprazine 3 mg capsule (Vraylar) 3 mg PO DAILY #30 caps 01/02/25 04/16/25 Rx cholecalciferol (vitamin D3) 125 125 mcg PO DAILY #90 tabs 02/01/25 04/16/25 Rx mcg (5,000 unit) tablet (Vitamin D3) lisinopril 30 mg tablet 30 mg PO DAILY #30 tabs 02/01/25 04/16/25 Rx amitriptyline 10 mg tablet 10 - 20 mg (1 - 2 x 10 mg) PO HS 02/16/25 04/16/25 Rx #60 tabs hydrochlorothiazide 25 mg tablet 25 mg PO DAILY #90 tabs 03/01/25 04/16/25 Rx atorvastatin 10 mg tablet 10 mg PO DAILY #90 tabs 04/04/25 04/16/25 Rx lorazepam 0.5 mg tablet 0.5 mg PO BID PRN anxiety #30 tabs 04/04/25 04/16/25 Rx meloxicam 15 mg tablet 15 mg PO DAILY #30 tabs 04/04/25 04/16/25 Rx ropinirole 4 mg tablet 4 mg PO HS #30 tabs 04/04/25 04/16/25 Rx desvenlafaxine succinate 100 mg 100 mg PO DAILY 04/17/25 04/17/25 History tablet,extended release 24 hr New Prescriptions to Start Prescriptions: Allergies Allergy/AdvReac Type Severity Reaction Status Date / Time morphine AdvReac Intermediate Nausea Verified 03/28/25 14:42 Assessment and Plan *Assessment and plan (1) New onset a-fib: Status: Acute Category: Medical Code(s): I48.91 - Unspecified atrial fibrillation (2) Acute heart failure with preserved ejection fraction (HFpEF, >= 50%): Status: Acute Category: Medical Code(s): I50.31 - Acute diastolic (congestive) heart failure (3) Hyponatremia: Status: Acute Category: Medical Code(s): E87.1 - Hypo-osmolality and hyponatremia (4) Hypochloremia: Status: Acute Category: Medical Code(s): E87.8 - Other disorders of electrolyte and fluid balance, not elsewhere classified (5) Morbid obesity with BMI of 60.0-69.9, adult: Status: Acute Category: Medical Code(s): E66.01 - Morbid (severe) obesity due to excess calories; Z68.44 - Body mass index [BMI] 60.0-69.9, adult Plan 1. New onset atrial fibrillation with RVR -CTA chest negative for pulmonary embolus -Discontinue amiodarone -Start combination of bisoprolol and diltiazem -Discontinue Lovenox and start Eliquis 5 mg twice daily -Echo shows normal ejection fraction at 55% with mild RV dilation and normal function. Moderate biatrial dilation 2. HFpEF, newly diagnosed, BNP 1550 -Holding diuresis at this time due to hyponatremia and mild hypotension -Try and start GDMT as BP allows. Patient previously on lisinopril prior to admission. 3. Hyponatremia and hypochloremia -possibly related to Pristiq 4. Morbid obesity with BMI greater than 60 -Complicates all aspects of care Medical therapy as noted above. No plans for invasive procedure or JASON/cardioversion at this time.
[2025-04-17 15:12] LABS: Anion Gap 10.5 mEq/L (5-15); Blood Urea Nitrogen 10 mg/dl (7-17); Calcium 8.7 mg/dl (8.4-10.2); Carbon Dioxide 29 mmol/L (22.0-30.0); Chloride 82 mmol/L (98-107); Creatinine Clearance Estimated 53 mL/min (50-200); Creatinine,Serum 0.80 mg/dl (0.52-1.04); Estimated Glomerular Filt Rate 72 ml/min (>60); GFR (African American) 87 ML/MIN (>60); Glucose 116 mg/dl (74-100); Potassium 4.5 mmoL/L (3.5-5.1); Sodium 117 mmol/L (136-145)
--- NOTE | 2025-04-17 16:25 | CA_ITS ---
FINAL REPORT TECHNIQUE: Multiple transverse and longitudinal scans were performed of the femoropopliteal deep venous systems, with augmentation and compression maneuvers. CLINICAL HISTORY: REDNESS BILATERAL CALF'S,MORBID OBESITY FINDINGS: DUPLEX VENOUS SONOGRAPHY OF THE BILATERAL LOWER EXTREMITIES Exam is very limited due to body habitus. Common femoral veins bilaterally cannot be evaluated. Superficial femoral veins are patent bilaterally. IMPRESSION: Severely limited exam due to body habitus. Visualized portions of the superficial femoral veins appear patent. Otherwise, deep veins of the lower extremity are inadequately evaluated. Reviewed, Interpreted and Dictated by Layne Contreras MD Transcribed by Yolis Johnston Authenticated and [facility]
--- NOTE | 2025-04-17 17:02 | PC.NURSE ---
assisted patient with bath and wendy care. educated on all new meds. bath performed. linens changed. patient has sat on side of bed and stood at bedside. did have a bm this shift, stool tossed before stool sample could be obtained. no change in patient normal per her report. does stand up with a stand by assist. swelling to feet noted. heart rate more controlled at this time. noted to be 70-90s after new meds given. continues to be irregular. some blood noted with wiping of wendy area, but excoriation is noted to folds. shortness of breath appears better. able to turn self in bed and assist with pulling self up in bed. noted redness to calfs, scuds removed patient has pharmacological vte ordered. production welding supervisor provided to patient to charge phone. dr mabry stated patient could be medsurg.
[2025-04-17 18:04] LABS: Adenovirus F 40/41, stool Not Detected (NotDetected); Clostridium Difficile A/B, PCR Not Detected (NotDetected); Cyclospora Cayetanesis Not Detected (NotDetected); Plesimonas Shigalloides, PCR Not Detected (NotDetected); Salmonella, PCR Not Detected (NotDetected); Shiga-like toxin E coli Not Detected (NotDetected); Shigella Enterovasive E coli Not Detected (NotDetected); Vibrio, PCR Not Detected (NotDetected); Yersinia Entercolitica, PCR Not Detected (NotDetected)
[2025-04-17] MEDS: HYDROCODONE/APAP 5/325 MG TABLET 1 TAB PO (18:56)
--- NOTE | 2025-04-17 18:57 | EXP.PN ---
Subjective *Date: 04/18/25 *Time: 11:54 Interval history: Patient feels slightly better today, continues to have edematous legs with pain. Suspect possible bilateral DVTs with elevated D-dimer. Follow-up bilateral Dopplers. Consulted with cardiology, does not seem to have heart failure. Discontinue milrinone and diuretics. Exam Data for Last 24 hours Vital signs and Labs for Last 24 Hours: Temp Pulse Resp BP Pulse Ox O2 Del Method 99.5 F 83 15 115/51 L 96 Room Air 04/17/25 16:15 04/17/25 16:15 04/17/25 16:51 04/17/25 16:00 04/17/25 16:15 04/17/25 18:50 Laboratory Results - last 24 hr 04/16/25 19:20: Urine Sodium 39.0 04/16/25 20:44: Sodium 117 L, Potassium 3.9, Chloride 81 L, Carbon Dioxide 30, Anion Gap 9.9, BUN 8, Creatinine 0.50 L, Estimated Creat Clear 53, Estimated GFR 124, Est GFR ( Amer) 150 D, Glucose 153 H D, Hemoglobin A1c 4.9, Calcium 8.5, TSH 6.15 H 04/17/25 01:02: Sodium 117 L, Potassium 3.4 L, Chloride 81 L, Carbon Dioxide 29, Anion Gap 10.4, BUN 9, Creatinine 0.70 D, Estimated Creat Clear 53, Estimated GFR 84, Est GFR ( Amer) 102 D, Glucose 107 H D, Calcium 8.1 L 04/17/25 05:37: WBC 4.5 L, RBC 3.17 L, Hgb 9.2 L D, Hct 27.8 L, MCV 87.7, MCH 29.0, MCHC 33.1, RDW 22.0 H, Plt Count 198, MPV 9.5, Neut % (Auto) 76.4, Lymph % (Auto) 8.8 L, [place] % (Auto) 9.7 H, Eos % (Auto) 3.1, Baso % (Auto) 0.4, Neut # (Auto) 3.4, Lymph # (Auto) 0.4 L, [place] # (Auto) 0.4, Eos # (Auto) 0.1, Baso # (Auto) 0.0, Total Counted 100, Neutrophils % (Manual) 81 H, Band Neutrophils % 2.0, Lymphocytes % (Manual) 8 L, Monocytes % (Manual) 9, Platelet Estimate Normal, RBC Morphology Normal, Sodium 116 L, Potassium 3.5, Chloride 80 L, Carbon Dioxide 30, Anion Gap 9.5, BUN 10, Creatinine 0.80, Estimated Creat Clear 53, Estimated GFR 72, Est GFR ( Amer) 87, Glucose 121 H, Calcium 8.2 L, Magnesium 1.5 L D, Total Bilirubin 0.7, AST 15 D, ALT 11 L D, Alkaline Phosphatase 124, Total Protein 5.4 L, Albumin 3.0 L D, Globulin 2.4, Albumin/Globulin Ratio 1.3, Triglycerides 63, Cholesterol 114 L, LDL Cholesterol Direct < 30.00 L, VLDL Cholesterol 13, HDL Cholesterol 69 H, Cholesterol/HDL Ratio 1.7, TSH 4.49 D, Free T4 2.00 04/17/25 09:43: Urine Sodium 5.0 L 04/17/25 09:45: PT 12.0, INR 1.09 04/17/25 14:54: Sodium 117 L, Potassium 4.5 D, Chloride 82 L, Carbon Dioxide 29, Anion Gap 10.5, BUN 10, Creatinine 0.80, Estimated Creat Clear 53, Estimated GFR 72, Est GFR ( Amer) 87, Glucose 116 H, Calcium 8.7 I & O for Last 24 hours: Intake & Output 04/14/25 04/15/25 04/16/25 04/17/25 23:59 23:59 23:59 23:59 Intake Total 167.507 / 643.122 2371.331 / 3103.331 Output Total 4200 / 4200 1385 / 1385 Balance -4032.493 / -4032.493 1718.331 / 1718.331 Weight 177.355 kg 177.35 kg Constitutional Constitutional: no acute distress *Routine HEENT Exam Head: Present normocephalic Eye: Present EOMI and PERRL ENT: Present mucous membranes moist *Routine Neck Exam Neck: Present supple; Absent lymphadenopathy *Routine Respiratory Exam Respiratory: Present CTA bilaterally *Routine Cardiovascular Exam Cardiovascular: Present RRR *Routine Abdominal Exam Abdominal: Present soft and normoactive bowel sounds; Absent tenderness *Routine Extremities Exam Extremities: Present edema; Absent cyanosis or clubbing Comments: Bilateral lower extremity pitting edema 3+, *Routine Skin Exam Skin: Present warm; Absent rash *Routine Neurological Exam Neurological: Present alert and oriented X3 Assessment and Plan *Assessment and plan (1) New onset a-fib: Status: Acute Category: Medical Code(s): I48.91 - Unspecified atrial fibrillation (2) Hyponatremia: Status: Acute Category: Medical Code(s): E87.1 - Hypo-osmolality and hyponatremia (3) Hypochloremia: Status: Acute Category: Medical Code(s): E87.8 - Other disorders of electrolyte and fluid balance, not elsewhere classified (4) CHF (congestive heart failure): Status: Acute Category: Medical Code(s): I50.9 - Heart failure, unspecified (5) BMI 60.0-69.9, adult: Status: Chronic Category: Medical Code(s): Z68.44 - Body mass index [BMI] 60.0-69.9, adult (6) History of bariatric surgery: Status: Chronic Category: Surgical Code(s): Z98.84 - Bariatric surgery status (7) YUNG (obstructive sleep apnea): Status: Chronic Category: Medical Code(s): G47.33 - Obstructive sleep apnea (adult) (pediatric) (8) Major depressive disorder: Status: Acute Qualifiers: Major depression recurrence: recurrent Active/Remission status: currently active Major depression episode severity: moderate Qualified Code(s): F33.1 - Major depressive disorder, recurrent, moderate Category: Medical Code(s): F32.9 - Major depressive disorder, single episode, unspecified (9) Essential hypertension: Status: Chronic Category: Medical Code(s): I10 - Essential (primary) hypertension (10) Hyperlipidemia: Status: Chronic Qualifiers: Hyperlipidemia type: unspecified Qualified Code(s): E78.5 - Hyperlipidemia, unspecified Category: Medical Code(s): E78.5 - Hyperlipidemia, unspecified Plan Asia Tracey is a 65-year-old morbidly obese female with history of PTSD and hypertension. Presented with increased swelling in her legs and weight gain over the past 3 weeks. Workup in the ER concerning for CHF, volume overload, new onset A-fib. Discussed case with ER physician, request admission for further management of new onset A-fib and cardiology consult. #HFpEF exacerbation, new onset #Lower extremity pitting edema #Suspected lower extremity DVTs ? Presented with 3-week onset of weight gain, worsening lower extremity edema. Initial BNP 1550. ? Initially aggressively diuresed with Bumex drip and milrinone per cardiology recommendations and had significant urine output net -4 L, but became hypotensive. ? ECHO 04/17/2025 revealed normal biventricular systolic function and no significant diastolic dysfunction. ? Liver ultrasound not suggestive of cirrhosis. ? Cardiology reevaluated, recommended discontinuing milrinone and holding diuretics for today due to soft pressures. ? Follow-up lower extremity venous Dopplers to evaluate for DVTs. ? Continue fluid, salt restriction. ? Renal function stable at 0.80, GFR 72. #A-fib, new onset ? Suspect likely from volume overload. Initially started on amiodarone drip, however transitioned to oral diltiazem by cardiology. ? Continue diltiazem 180 mg, bisoprolol 5 g daily. Started Eliquis 5 mg twice daily. #Hyponatremia ? Initial sodium 114, improved to 116 this morning. ? Unclear etiology this time, patient takes hydrochlorothiazide at home which we will hold. ? Patient does seem hypervolemic, initial urine sodium normal. Today's urine sodium low at 5.0 suggesting heart failure. ? Sodium slowly improving, 117 this afternoon. Will hold diuretic today, continue tomorrow. ? Chronic diarrhea may be contributing. ? Follow-up serum, urine osmolality. These are send out labs. ? Goal correction rate of 8 to 10 mEq/day. #Chronic diarrhea ? Patient states this started after gastric bypass, follow-up stool PCR. ? Follow-up fecal elastase, calprotectin. ? Plan to refer to GI for further evaluation management. PTSD/depression: Continue home amitriptyline 10 to 20 mg nightly, lorazepam 0.5 mg twice daily as needed, prazosin 1 mg nightly, ropinirole 4 mg nightly for restless leg, and desvenlafaxine 100 mg extended release daily Morbid obesity: BMI of 64. Complicates all aspects of her care; previous bariatric surgery. Recommend follow-up with PCP to discuss medical assisted weight loss. Would benefit from GLP-1 - History of gastric bypass, has had significant diarrhea since. Will continue cholestyramine 4 g daily as needed. Will also obtain diarrhea panel to rule out infectious etiology. Full code DVT prophylaxis: Eliquis
[2025-04-17] MEDS: DIPHENOXYLATE/ATROPINE 2.5MG TABLET 2.5 MG PO (19:02)
[2025-04-17] MEDS: ROPINIROLE 1MG TABLET 4 MG PO (20:59)
[2025-04-17] MEDS: PRAZOSIN 1MG CAP 1 MG PO (20:59)
[2025-04-17] MEDS: AMITRIPTYLINE 10MG TABLET 10 MG PO (20:59)
--- NOTE | 2025-04-17 23:54 | CA_ITS ---
APPROVED REPORT EXAM: Comprehensive 2D, Doppler, and color-flow Echocardiogram Para Educator: Viviana Guerra CRT Ht: 5 ft 6 in Wt: 391lbs BSA: 2.66 BP: 168/93 mmHg Indications: Shortness of Breath, Atrial Fibrillation (new onset), Peripheral Edema, Hyperlipidemia, Hypertension/HDD, YUNG, HX gastric bypass Limited apical images due to body habitus 2D Dimensions LA Volume 57.10 mL LA Volume Index 21.00 mL/m2 (M/F) 16-34 M-Mode Dimensions RVDd 2.99 cm (0.9-2.6) LA Diam 4.38 cm (1.9-4.0) LVDd 3.91 cm (3.5-5.7) LVDs 2.88 cm (3.5-5.7) IVSd 1.50 cm (0.6-1.1) PWd 0.74 cm (0.6-1.1) EF (Teich) 52.20% FS 26.30% EDV (Teich) 66.30 mL ESV (Teich) 31.70 mL LV Diastology E Decel Time 150 (160-240 msec) E/A Ratio 0.69 Aortic Valve AO Peak GR. 12.30 mmHg Mitral Valve MV E Max Arie. 52.0 (40-130 cm/s) MV A Velocity 76.0 (40-130 cm/s) E/A Ratio 0.69 MV PHT 44.0 ms Tricuspid Valve TR P. Velocity 275.00 cm/s RAP Estimate 10.00 mmHg RVSP 40.30 mmHg Left Ventricle The left ventricle is normal size. Left ventricular systolic function is normal. The left ventricular ejection fraction is within the normal range. There is increased left ventricular wall thickness. There is normal LV segmental wall motion. The left ventricular diastolic function is indeterminate. LVEF is 55% Right Ventricle The right ventricle is mildly dilated. The right ventricular systolic function is normal. Atria The left atrium is moderately dilated. The right atrium is moderately dilated. The interatrial septum is not well-visualized. Aortic Valve The aortic valve leaflets are not very well-visualized. There is no hemodynamically significant aortic valvular stenosis. No aortic regurgitation is present. Mitral Valve The mitral valve is mildly thickened. No evidence of mitral valve stenosis. Mild mitral regurgitation is present. Tricuspid Valve The tricuspid valve leaflets are thin and pliable. Mild tricuspid regurgitation. RVSP is 30 mmHg + RA pressure. Pulmonic Valve The pulmonary valve is not well-visualized. Great Vessels The aortic root is not well-visualized. The IVC is not well-visualized. Pericardium There is no pericardial effusion. Other Information Study Quality: Technically Difficult Conclusion Technically difficult study. Normal biventricular systolic function. Mild RV dilation. Biatrial dilation. Mild MR, mild TR. Electronically signed by : Christin Zimmerman MD 04/17/2025 10:21:33
[2025-04-18] VITALS (11 sets, daily range): BP systolic 96–160; BP diastolic 63–88; PULSE 58–98; RESP 12–24; TEMP 36.6–36.9; O2SAT 93–98; BMI 62.9
--- NOTE | 2025-04-18 00:55 | PC.NURSE ---
While rounding on pt, pt reports itching from her IV tape, tele stickers, and the back of her legs. Pt has no other complaints. No rashes noted. No changes in VS noted. Pt requesting Benadryl. Dr Cline notified. Verbal order received and verified for Benadryl 25mg PO Q6HR PRN. Pharmacy communication formed faxed.
--- NOTE | 2025-04-18 04:23 | PC.NURSE ---
No changes overnight. Pt remains in a-fib with controlled rate. See VS.
[2025-04-18] MEDS: CHOLESTYRAMINE 4 GM PO (08:22)
[2025-04-18] MEDS: APIXABAN 5MG TABLET 5 MG PO ×2 (08:23→21:52)
[2025-04-18] MEDS: dilTIAZem HCL 180MG CAP.ER.24H 180 MG PO (08:24)
--- NOTE | 2025-04-18 09:14 | EXP.CARD.PN ---
Subjective Subjective Date: 04/18/25 Time: 09:14 Principal diagnosis: New onset A-fib Interval history: 65-year-old white female sitting up in bed in no acute distress. Breathing is back to normal. Lower extremity edema is at baseline. Heart rate is controlled but she remains in A-fib. Exam Data for Last 24 hours Vital signs and Labs for Last 24 Hours: Temp Pulse Resp BP Pulse Ox O2 Del Method 98.1 F 58 L 15 96/63 L 96 Room Air 04/18/25 08:06 04/18/25 08:06 04/18/25 08:06 04/18/25 08:06 04/18/25 08:06 04/18/25 08:06 Laboratory Results - last 24 hr 04/17/25 05:37: TSH 4.49 D, Free T4 2.00 04/17/25 09:43: Urine Sodium 5.0 L 04/17/25 09:45: PT 12.0, INR 1.09 04/17/25 14:54: Sodium 117 L, Potassium 4.5 D, Chloride 82 L, Carbon Dioxide 29, Anion Gap 10.5, BUN 10, Creatinine 0.80, Estimated Creat Clear 53, Estimated GFR 72, Est GFR ( Amer) 87, Glucose 116 H, Calcium 8.7 04/17/25 18:00: Stl C. cayetanensis PCR Not detected, Stool Rotavirus (PCR) Not detected, Stl Adenov F 40/41 PCR Not detected, Stool Astrovirus (PCR) Not detected, Stool Campylobacter PCR Not detected, Stl C.difficile Tox PCR Not detected, Stool Cryptosporidium PCR Not detected, Stl E.coli Shiga Tox PCR Not detected, Stool E coli O157 PCR Not detected, Stl Enterotoxigenic E PCR Not detected, Stool EPEC (PCR) Not detected, Stool EAEC (PCR) Not detected, Stl E. histolytica PCR Not detected, Stool Giardia Lamblia PCR Not detected, Stool Salmonella PCR Not detected, Stool Sapovirus (PCR) Not detected, Stl P. shigelloides PCR Not detected, Stl Shigella/EIEC PCR Not detected, St Y.enterocolitica PCR Not detected, Stool Vibrio (PCR) Not detected, Stl Vibrio cholerae PCR Not detected, Stl Norovirus GI/GII PCR Not detected I & O for Last 24 hours: Intake & Output 04/15/25 04/16/25 04/17/25 04/18/25 11:59 11:59 11:59 11:59 Intake Total 2083.886 / 2083.886 1836.952 / 1836.952 Output Total 4585 / 4585 1740 / 1740 Balance -2501.114 / -2501.114 96.952 / 96.952 Weight 390 lb 15.837 oz 391 lb 11.2 oz Microbiology Reports for the Last 24 Hours: Microbiology 04/16/25 19:24 Rectum CRE Surveillance Culture - Final Negative Constitutional Constitutional: no acute distress *Routine Respiratory Exam Respiratory: Present CTA bilaterally and diminished air movement *Routine Cardiovascular Exam Cardiovascular: Present murmur and irregularly irregular; Absent gallop or rubs *Routine Extremities Exam Extremities: Present edema Progress Note: A&P Assessment and plan (1) New onset a-fib: Status: Acute (2) Acute heart failure with preserved ejection fraction (HFpEF, >= 50%): Status: Acute (3) Hyponatremia: Status: Acute (4) Hypochloremia: Status: Acute (5) Morbid obesity with BMI of 60.0-69.9, adult: Status: Acute Assessment and Plan Assessment and Plan for All Diagnoses:: 1. New onset atrial fibrillation with RVR -CTA chest negative for pulmonary embolus -amiodarone stopped. Will give OAC for at least 30 days prior to attempting cardioversion. -Start combination of bisoprolol and diltiazem -Eliquis 5 mg twice daily -Echo shows normal ejection fraction at 55% with mild RV dilation and normal function. Moderate biatrial dilation 2. HFpEF, newly diagnosed, BNP 1550 -CXR and chest CTA negative for acute process -Holding diuresis at this time due to hyponatremia and mild hypotension -Try and start GDMT as BP allows. Patient previously on lisinopril prior to admission. BP borderline low. 3. Hyponatremia and hypochloremia -possibly related to Pristiq -Na stable at 118 -Cl stable at 82 4. Morbid obesity with BMI greater than 60 -Complicates all aspects of care 5. YUNG, on CPAP at home 6. Anemia -stable at 10 Nothing new to add. Stable from Cardiac standpoint to discharge when ready. Med recommendations: Eliquis 5 mg twice daily Diltiazem CD180 mg daily in the morning Bisoprolol 5 mg daily in the evening Resume home dose of atorvastatin 10 mg daily Hold home medications of lisinopril and hydrochlorothiazide at this time. Consider resuming if blood pressure allows Follow-up in our office in 1 to 2 weeks
[2025-04-18 09:17] LABS: Hematocrit 31.0 % (37.0-47.0); Hemoglobin 10.0 g/dL (12.2-16.2); Immature Granulocytes % 1.2 %; Mean Corpuscular HGB Conc 32.3 g/dL (31.8-35.4); Mean Corpuscular Hemoglobin 29.2 pg (27.0-31.2); Mean Corpuscular Volume 90.4 fl (81-99); Nucleated Red Blood Cells % 0 %; Platelet Count 191 K/mm3 (142-424); Red Blood Count 3.43 M/mm3 (4.20-5.40); Red Cell Distribution Width-SD 73.0 fL; White Blood Count 5.6 K/mm3 (4.8-10.8)
[2025-04-18 09:26] LABS: Alanine Aminotransferase 16 U/L (12-78); Alkaline Phosphatase 111 U/L (38-126); Aspartate Amino Transferase 17 U/L (14-36); Bilirubin,Total 0.3 mg/dl (0.2-1.3); Blood Urea Nitrogen 8 mg/dl (7-17); Carbon Dioxide 31 mmol/L (22.0-30.0); Cholesterol 128 mg/dl (140-200); Creatinine Clearance Estimated 53 mL/min (50-200); Creatinine,Serum 0.70 mg/dl (0.52-1.04); Estimated Glomerular Filt Rate 84 ml/min (>60); GFR (African American) 102 ML/MIN (>60); Total Protein,Serum 6.2 g/dl (6.3-8.2); Triglycerides 56 mg/dl (30-150)
[2025-04-18 09:27] LABS: Calcium 8.9 mg/dl (8.4-10.2); Glucose 129 mg/dl (74-100); HDL Cholesterol 79 mg/dl (40-60)
[2025-04-18 09:44] LABS: Chloride 82 mmol/L (98-107)
[2025-04-18 09:45] LABS: Albumin Level 3.4 g/dl (3.5-5.0); Albumin/Globulin Ratio 1.2 (1.1-1.8); Anion Gap 9.8 mEq/L (5-15); Globulin 2.8 g/dL (1.3-3.2); Potassium 4.8 mmoL/L (3.5-5.1); Sodium 118 mmol/L (136-145)
[2025-04-18 10:02] LABS: Total Cells Counted 100
[2025-04-18 10:04] LABS: RBC Morphology Normal
[2025-04-18] MEDS: DIPHENOXYLATE/ATROPINE 2.5MG TABLET 2.5 MG PO (10:22)
[2025-04-18] MEDS: SODIUM CHLORIDE 3 % 500 ML 50 ML IV (11:15)
[2025-04-18] MEDS: SODIUM CHLORIDE 1,000MG TABLET 1000 MG PO (11:16)
[2025-04-18] MEDS: ONDANSETRON 4MG/2ML VIAL 4 MG IV (11:34)
--- NOTE | 2025-04-18 12:18 | PC.NURSE ---
arrived by bed from ICU
--- NOTE | 2025-04-18 12:22 | PC.NURSE ---
arrived by bed from surgery
--- NOTE | 2025-04-18 12:22 | PC.NURSE ---
Patient left unit with [facility] staff at 1215
[2025-04-18] MEDS: BUMETANIDE 1MG/4ML VIAL 1 MG IV (13:14)
[2025-04-18] MEDS: SPIRONOLACTONE 25MG TABLET 25 MG PO (14:18)
[2025-04-18 14:28] LABS: Microscopic, Urine URINE MICROSCOPIC (MICROSCOPIC)
[2025-04-18 14:45] LABS: Bilirubin,Urine Negative (Negative); Color,Urine YELLOW (Yellow); Glucose,Urine (UA) Negative (Negative); Ketones,Urine Negative (Negative); Leukocyte Esterase,Urine 2+ (Negative); PH,Urine 5.5 (5.0-8.5); Protein,Urine Negative (Negative); Urobilinogen,Urine 0.2 EU/dl (0.2)
[2025-04-18 14:51] LABS: Specific Gravity, Urine 1.005 (1.005-1.030)
[2025-04-18 15:03] LABS: Bacteria,Urine 2+ /lpf
[2025-04-18 15:41] LABS: Anion Gap 14.0 mEq/L (5-15); Blood Urea Nitrogen 9 mg/dl (7-17); Calcium 8.6 mg/dl (8.4-10.2); Carbon Dioxide 29 mmol/L (22.0-30.0); Chloride 84 mmol/L (98-107); Creatinine Clearance Estimated 53 mL/min (50-200); Creatinine,Serum 0.70 mg/dl (0.52-1.04); Estimated Glomerular Filt Rate 84 ml/min (>60); GFR (African American) 102 ML/MIN (>60); Glucose 110 mg/dl (74-100); Potassium 5.0 mmoL/L (3.5-5.1); Sodium 122 mmol/L (136-145)
--- NOTE | 2025-04-18 15:49 | EXP.DC.SUM ---
General Admission date:: 04/16/25 HPI HPI HPI: Ms. Tracey is a 65-year-old female with morbid obesity, PTSD, hypertension and hyperlipidemia. History of gastric bypass surgery, has chronic diarrhea ever since. She presents to the ER with complaint of 3 weeks of increased swelling in her legs, weakness, shortness of breath. Has been taking HCTZ at home with no significant benefit. Presented to the ER with initial vitals showing tachycardia. EKG obtained showing A-fib which appears to be a new diagnosis. Also has significant lower extremity edema and says she feels full and swollen in her abdomen. Initial labs showed normal white count. Kidney function normal with BUN 8, creatinine 0.6. BNP 1500. Sodium 114 and chloride 79. Appears frankly volume overloaded. Medicine consulted for admission and further management of new onset A-fib and volume overload. Cardiology was consulted and recommended amiodarone and anticoagulation. Patient admitted to ICU due to drips. Remained stable on room air at this time. Denies chest pain, nausea, vomiting. Denies any fever. Alert and oriented x 4. Hospital Course Hospital Course Hospital Course: Total time spent on discharge: 32 minutes on chart review, counseling, documentation, and direct care with patient. Exam Data for Last 24 hours Vital signs and Labs for Last 24 Hours: Temp Pulse Resp BP Pulse Ox O2 Del Method 98.5 F 74 18 136/64 98 Room Air 04/18/25 12:20 04/18/25 12:20 04/18/25 12:20 04/18/25 12:20 04/18/25 12:20 04/18/25 15:00 Laboratory Results - last 24 hr 04/17/25 18:00: Stl C. cayetanensis PCR Not detected, Stool Rotavirus (PCR) Not detected, Stl Adenov F 40/41 PCR Not detected, Stool Astrovirus (PCR) Not detected, Stool Campylobacter PCR Not detected, Stl C.difficile Tox PCR Not detected, Stool Cryptosporidium PCR Not detected, Stl E.coli Shiga Tox PCR Not detected, Stool E coli O157 PCR Not detected, Stl Enterotoxigenic E PCR Not detected, Stool EPEC (PCR) Not detected, Stool EAEC (PCR) Not detected, Stl E. histolytica PCR Not detected, Stool Giardia Lamblia PCR Not detected, Stool Salmonella PCR Not detected, Stool Sapovirus (PCR) Not detected, Stl P. shigelloides PCR Not detected, Stl Shigella/EIEC PCR Not detected, St Y.enterocolitica PCR Not detected, Stool Vibrio (PCR) Not detected, Stl Vibrio cholerae PCR Not detected, Stl Norovirus GI/GII PCR Not detected 04/18/25 09:06: WBC 5.6, RBC 3.43 L, Hgb 10.0 L, Hct 31.0 L, MCV 90.4, MCH 29.2, MCHC 32.3, RDW 22.8 H, Plt Count 191, MPV 8.7, Neut % (Auto) 79.2, Lymph % (Auto) 9.4 L, Carbon % (Auto) 6.8, Eos % (Auto) 3.0, Baso % (Auto) 0.4, Neut # (Auto) 4.5, Lymph # (Auto) 0.5 L, Carbon # (Auto) 0.4, Eos # (Auto) 0.2, Baso # (Auto) 0.0, Total Counted 100, Neutrophils % (Manual) 84 H, Lymphocytes % (Manual) 10, Monocytes % (Manual) 2, Eosinophils % (Manual) 4 H, Platelet Estimate Normal, RBC Morphology Normal, Sodium 118 L, Potassium 4.8, Chloride 82 L, Carbon Dioxide 31 H, Anion Gap 9.8, BUN 8, Creatinine 0.70, Estimated Creat Clear 53, Estimated GFR 84, Est GFR ( Amer) 102, Glucose 129 H, Calcium 8.9, Total Bilirubin 0.3, AST 17, ALT 16 D, Alkaline Phosphatase 111, Total Protein 6.2 L, Albumin 3.4 L D, Globulin 2.8, Albumin/Globulin Ratio 1.2, Triglycerides 56, Cholesterol 128 L, LDL Cholesterol Direct < 30.00 L, VLDL Cholesterol 11, HDL Cholesterol 79 H, Cholesterol/HDL Ratio 1.6 04/18/25 14:17: Urine Color Yellow, Urine Appearance Clear, Urine pH 5.5, Ur Specific [place] 1.005, Urine Protein Negative, Urine Glucose (UA) Negative, Urine Ketones Negative, Urine Blood 3+ A, Urine Nitrate Negative, Urine Bilirubin Negative, Urine Urobilinogen 0.2, Ur Leukocyte Esterase 2+ A, Urine RBC None, Urine WBC 5-10, Ur Squamous Epith Cells None, Urine Bacteria 2+ 04/18/25 14:28: Sodium 122 L, Potassium 5.0, Chloride 84 L, Carbon Dioxide 29, Anion Gap 14.0, BUN 9, Creatinine 0.70, Estimated Creat Clear 53, Estimated GFR 84, Est GFR ( Amer) 102, Glucose 110 H, Calcium 8.6 I & O for Last 24 hours: Intake & Output 04/15/25 04/16/25 04/17/25 04/18/25 23:59 23:59 23:59 23:59 Intake Total 167.507 / 210.113 7986.331 / 3321.331 853.667 / 853.667 Output Total 4200 / 4200 1475 / 1625 1070 / 1070 Balance -4032.493 / -4032.493 1846.331 / 1696.331 -216.333 / -216.333 Weight 177.355 kg 177.35 kg 177.672 kg Microbiology Reports for the Last 24 Hours: Microbiology 04/16/25 19:24 Rectum CRE Surveillance Culture - Final Negative Results Data Completed and Pending Labs on day of discharge: Labs from last 24 hours 04/18/25 04/18/25 04/18/25 14:28 14:17 09:06 WBC 5.6 RBC 3.43 L Hgb 10.0 L Hct 31.0 L MCV 90.4 MCH 29.2 MCHC 32.3 RDW 22.8 H Plt Count 191 MPV 8.7 Neut % (Auto) 79.2 Lymph % (Auto) 9.4 L Carbon % (Auto) 6.8 Eos % (Auto) 3.0 Baso % (Auto) 0.4 Neut # (Auto) 4.5 Lymph # (Auto) 0.5 L Carbon # (Auto) 0.4 Eos # (Auto) 0.2 Baso # (Auto) 0.0 Total Counted 100 Neutrophils % (Manual) 84 H Lymphocytes % (Manual) 10 Monocytes % (Manual) 2 Eosinophils % (Manual) 4 H Platelet Estimate Normal RBC Morphology Normal Sodium 122 L 118 L Potassium 5.0 4.8 Chloride 84 L 82 L Carbon Dioxide 29 31 H Anion Gap 14.0 9.8 BUN 9 8 Creatinine 0.70 0.70 Estimated Creat Clear 53 53 Estimated GFR 84 84 Est GFR ( Amer) 102 102 Glucose 110 H 129 H Calcium 8.6 8.9 Total Bilirubin 0.3 AST 17 ALT 16 D Alkaline Phosphatase 111 Total Protein 6.2 L Albumin 3.4 L D Globulin 2.8 Albumin/Globulin Ratio 1.2 Triglycerides 56 Cholesterol 128 L LDL Cholesterol Direct < 30.00 L VLDL Cholesterol 11 HDL Cholesterol 79 H Cholesterol/HDL Ratio 1.6 Urine Color Yellow Urine Appearance Clear Urine pH 5.5 Ur Specific [place] 1.005 Urine Protein Negative Urine Glucose (UA) Negative Urine Ketones Negative Urine Blood 3+ A Urine Nitrate Negative Urine Bilirubin Negative Urine Urobilinogen 0.2 Ur Leukocyte Esterase 2+ A Urine RBC None Urine WBC 5-10 Ur Squamous Epith Cells None Urine Bacteria 2+ Stl C. cayetanensis PCR Stool Rotavirus (PCR) Stl Adenov F PCR Stool Astrovirus (PCR) Stool Campylobacter PCR Stl C.difficile Tox PCR Stool Cryptosporidium PCR Stl E.coli Shiga Tox PCR Stool E coli O157 PCR Stl Enterotoxigenic E PCR Stool EPEC (PCR) Stool EAEC (PCR) Stl E. histolytica PCR Stool Giardia Lamblia PCR Stool Salmonella PCR Stool Sapovirus (PCR) Stl P. shigelloides PCR Stl Shigella/EIEC PCR St Y.enterocolitica PCR Stool Vibrio (PCR) Stl Vibrio cholerae PCR Stl Norovirus GI/GII PCR 04/17/25 18:00 WBC RBC Hgb Hct MCV MCH MCHC RDW Plt Count MPV Neut % (Auto) Lymph % (Auto) Carbon % (Auto) Eos % (Auto) Baso % (Auto) Neut # (Auto) Lymph # (Auto) Carbon # (Auto) Eos # (Auto) Baso # (Auto) Total Counted Neutrophils % (Manual) Lymphocytes % (Manual) Monocytes % (Manual) Eosinophils % (Manual) Platelet Estimate RBC Morphology Sodium Potassium Chloride Carbon Dioxide Anion Gap BUN Creatinine Estimated Creat Clear Estimated GFR Est GFR ( Amer) Glucose Calcium Total Bilirubin AST ALT Alkaline Phosphatase Total Protein Albumin Globulin Albumin/Globulin Ratio Triglycerides Cholesterol LDL Cholesterol Direct VLDL Cholesterol HDL Cholesterol Cholesterol/HDL Ratio Urine Color Urine Appearance Urine pH Ur Specific [place] Urine Protein Urine Glucose (UA) Urine Ketones Urine Blood Urine Nitrate Urine Bilirubin Urine Urobilinogen Ur Leukocyte Esterase Urine RBC Urine WBC Ur Squamous Epith Cells Urine Bacteria Stl C. cayetanensis PCR Not detected Stool Rotavirus (PCR) Not detected Stl Adenov F PCR Not detected Stool Astrovirus (PCR) Not detected Stool Campylobacter PCR Not detected Stl C.difficile Tox PCR Not detected Stool Cryptosporidium PCR Not detected Stl E.coli Shiga Tox PCR Not detected Stool E coli O157 PCR Not detected Stl Enterotoxigenic E PCR Not detected Stool EPEC (PCR) Not detected Stool EAEC (PCR) Not detected Stl E. histolytica PCR Not detected Stool Giardia Lamblia PCR Not detected Stool Salmonella PCR Not detected Stool Sapovirus (PCR) Not detected Stl P. shigelloides PCR Not detected Stl Shigella/EIEC PCR Not detected St Y.enterocolitica PCR Not detected Stool Vibrio (PCR) Not detected Stl Vibrio cholerae PCR Not detected Stl Norovirus GI/GII PCR Not detected DS: Diagnosis Discharge Diagnosis (1) New onset a-fib: Status: Acute Code(s): I48.91 - Unspecified atrial fibrillation (2) Acute heart failure with preserved ejection fraction (HFpEF, >= 50%): Status: Acute Code(s): I50.31 - Acute diastolic (congestive) heart failure (3) Hyponatremia: Status: Acute Code(s): E87.1 - Hypo-osmolality and hyponatremia (4) Hypochloremia: Status: Acute Code(s): E87.8 - Other disorders of electrolyte and fluid balance, not elsewhere classified (5) Morbid obesity with BMI of 60.0-69.9, adult: Status: Acute Code(s): E66.01 - Morbid (severe) obesity due to excess calories; Z68.44 - Body mass index [BMI] 60.0-69.9, adult Meds Home Medications and Allergies Home Medications ?Medication ?Instructions ?Recorded ?Confirmed ?Type cholestyramine (with sugar) 4 gram 1 ea PO DAILY 09/09/23 04/16/25 History oral powder diphenoxylate-atropine 2.5 1 tab PO BID 09/09/23 04/17/25 History mg-0.025 mg tablet cyanocobalamin (vitamin B-12) 1,000 mcg PO DAILY #30 tabs 10/11/24 04/16/25 Rx 1,000 mcg tablet blood pressure monitor #1 ea 11/29/24 04/18/25 Rx cariprazine 3 mg capsule (Vraylar) 3 mg PO DAILY #30 caps 01/02/25 04/16/25 Rx cholecalciferol (vitamin D3) 125 125 mcg PO DAILY #90 tabs 02/01/25 04/16/25 Rx mcg (5,000 unit) tablet (Vitamin D3) lisinopril 30 mg tablet 30 mg PO DAILY #30 tabs 02/01/25 04/16/25 Rx amitriptyline 10 mg tablet 10 - 20 mg (1 - 2 x 10 mg) PO HS 02/16/25 04/16/25 Rx #60 tabs hydrochlorothiazide 25 mg tablet 25 mg PO DAILY #90 tabs 03/01/25 04/16/25 Rx atorvastatin 10 mg tablet 10 mg PO DAILY #90 tabs 04/04/25 04/16/25 Rx lorazepam 0.5 mg tablet 0.5 mg PO BID PRN anxiety #30 tabs 04/04/25 04/16/25 Rx meloxicam 15 mg tablet 15 mg PO DAILY #30 tabs 04/04/25 04/16/25 Rx ropinirole 4 mg tablet 4 mg PO HS #30 tabs 04/04/25 04/16/25 Rx desvenlafaxine succinate 100 mg 100 mg PO DAILY 04/17/25 04/17/25 History tablet,extended release 24 hr New Prescriptions to Start Prescriptions: Allergies Allergy/AdvReac Type Severity Reaction Status Date / Time morphine AdvReac Intermediate Nausea Verified 03/28/25 14:42 Discharge Plan Follow up Plan Follow up with: Carlyle Pak PA [Physician Technology Education Instructor, Cardiology] - Enter time for follow up Prescriptions/Medication Reconciliation: No Action cholecalciferol (vitamin D3) [Vitamin D3] 125 mcg (5,000 unit) tablet 125 mcg PO DAILY Qty: 90 1RF lisinopril 30 mg tablet 30 mg PO DAILY Qty: 30 2RF cholestyramine (with sugar) 4 gram powder 1 ea PO DAILY diphenoxylate-atropine 2.5-0.025 mg tablet 1 tab PO BID amitriptyline 10 mg tablet 10 - 20 mg PO HS Qty: 60 2RF (DME) blood pressure monitor Kit See Rx Instructions .Route Qty: 1 0RF Rx Instructions: As directed cyanocobalamin (vitamin B-12) 1,000 mcg tablet 1,000 mcg PO DAILY Qty: 30 5RF Vraylar 3 mg capsule 3 mg PO DAILY Qty: 30 2RF hydrochlorothiazide 25 mg tablet 25 mg PO DAILY Qty: 90 1RF atorvastatin 10 mg tablet 10 mg PO DAILY Qty: 90 1RF meloxicam 15 mg tablet 15 mg PO DAILY Qty: 30 2RF ropinirole 4 mg tablet 4 mg PO HS Qty: 30 2RF lorazepam 0.5 mg tablet 0.5 mg PO BID PRN (Reason: anxiety) Qty: 30 1RF desvenlafaxine succinate 100 mg tablet extended release 24 hr 100 mg PO DAILY Patient Discharge Instructions Print Language: [place] Providers Primary Care Provider: Heidi Childress Admit Provider: Baudilio Riggins Attending Provider: Baudilio Riggins
--- NOTE | 2025-04-18 17:25 | P.PN_ITS ---
Subjective *Date: 04/18/25 *Time: 17:25 Interval history: Patient feeling better today, lower extremity pitting edema is improved. Patient is excited about that, pain also improved. Trialed Bumex challenge today, has diuresed significantly. Will monitor overnight with diuresis. Exam Data for Last 24 hours Vital signs and Labs for Last 24 Hours: Temp Pulse Resp BP Pulse Ox O2 Del Method 98.2 F 89 24 155/74 H 97 Room Air 04/18/25 16:00 04/18/25 16:00 04/18/25 16:00 04/18/25 16:00 04/18/25 16:00 04/18/25 16:00 Laboratory Results - last 24 hr 04/17/25 18:00: Stl C. cayetanensis PCR Not detected, Stool Rotavirus (PCR) Not detected, Stl Adenov F 40/41 PCR Not detected, Stool Astrovirus (PCR) Not detected, Stool Campylobacter PCR Not detected, Stl C.difficile Tox PCR Not detected, Stool Cryptosporidium PCR Not detected, Stl E.coli Shiga Tox PCR Not detected, Stool E coli O157 PCR Not detected, Stl Enterotoxigenic E PCR Not detected, Stool EPEC (PCR) Not detected, Stool EAEC (PCR) Not detected, Stl E. histolytica PCR Not detected, Stool Giardia Lamblia PCR Not detected, Stool Salmonella PCR Not detected, Stool Sapovirus (PCR) Not detected, Stl P. shigelloides PCR Not detected, Stl Shigella/EIEC PCR Not detected, St Y.enterocolitica PCR Not detected, Stool Vibrio (PCR) Not detected, Stl Vibrio cholerae PCR Not detected, Stl Norovirus GI/GII PCR Not detected 04/18/25 09:06: WBC 5.6, RBC 3.43 L, Hgb 10.0 L, Hct 31.0 L, MCV 90.4, MCH 29.2, MCHC 32.3, RDW 22.8 H, Plt Count 191, MPV 8.7, Neut % (Auto) 79.2, Lymph % (Auto) 9.4 L, [place] % (Auto) 6.8, Eos % (Auto) 3.0, Baso % (Auto) 0.4, Neut # (Auto) 4.5, Lymph # (Auto) 0.5 L, [place] # (Auto) 0.4, Eos # (Auto) 0.2, Baso # (Auto) 0.0, Total Counted 100, Neutrophils % (Manual) 84 H, Lymphocytes % (Manual) 10, Monocytes % (Manual) 2, Eosinophils % (Manual) 4 H, Platelet Estimate Normal, RBC Morphology Normal, Sodium 118 L, Potassium 4.8, Chloride 82 L, Carbon Dioxide 31 H, Anion Gap 9.8, BUN 8, Creatinine 0.70, Estimated Creat Clear 53, Estimated GFR 84, Est GFR ( Amer) 102, Glucose 129 H, Calcium 8.9, Total Bilirubin 0.3, AST 17, ALT 16 D, Alkaline Phosphatase 111, Total Protein 6.2 L, Albumin 3.4 L D, Globulin 2.8, Albumin/Globulin Ratio 1.2, Triglycerides 56, Cholesterol 128 L, LDL Cholesterol Direct < 30.00 L, VLDL Cholesterol 11, HDL Cholesterol 79 H, Cholesterol/HDL Ratio 1.6 04/18/25 14:17: Urine Color Yellow, Urine Appearance Clear, Urine pH 5.5, Ur Specific [place] 1.005, Urine Protein Negative, Urine Glucose (UA) Negative, Urine Ketones Negative, Urine Blood 3+ A, Urine Nitrate Negative, Urine Bilirubin Negative, Urine Urobilinogen 0.2, Ur Leukocyte Esterase 2+ A, Urine RBC None, Urine WBC 5-10, Ur Squamous Epith Cells None, Urine Bacteria 2+ 04/18/25 14:28: Sodium 122 L, Potassium 5.0, Chloride 84 L, Carbon Dioxide 29, Anion Gap 14.0, BUN 9, Creatinine 0.70, Estimated Creat Clear 53, Estimated GFR 84, Est GFR ( Amer) 102, Glucose 110 H, Calcium 8.6 I & O for Last 24 hours: Intake & Output 04/15/25 04/16/25 04/17/25 04/18/25 23:59 23:59 23:59 23:59 Intake Total 167.507 / 142.942 6693.331 / 3321.331 853.667 / 853.667 Output Total 4200 / 4200 1475 / 1625 2820 / 2820 Balance -4032.493 / -4032.493 1846.331 / 1696.331 -1966.333 / -1966.333 Weight 177.355 kg 177.35 kg 177.672 kg Microbiology Reports for the Last 24 Hours: Microbiology 04/16/25 19:24 Rectum CRE Surveillance Culture - Final Negative Constitutional Constitutional: no acute distress *Routine HEENT Exam Head: Present normocephalic Eye: Present EOMI and PERRL ENT: Present mucous membranes moist *Routine Neck Exam Neck: Present supple; Absent lymphadenopathy *Routine Respiratory Exam Respiratory: Present CTA bilaterally *Routine Cardiovascular Exam Cardiovascular: Present RRR *Routine Abdominal Exam Abdominal: Present soft and normoactive bowel sounds; Absent tenderness *Routine Extremities Exam Extremities: Present edema; Absent cyanosis or clubbing Comments: Bilateral lower extremity pitting edema 2+, *Routine Skin Exam Skin: Present warm; Absent rash *Routine Neurological Exam Neurological: Present alert and oriented X3 Assessment and Plan *Assessment and plan (1) New onset a-fib: Status: Acute Category: Medical Code(s): I48.91 - Unspecified atrial fibrillation (2) Hyponatremia: Status: Acute Category: Medical Code(s): E87.1 - Hypo-osmolality and hyponatremia (3) Hypochloremia: Status: Acute Category: Medical Code(s): E87.8 - Other disorders of electrolyte and fluid balance, not elsewhere classified (4) CHF (congestive heart failure): Status: Acute Category: Medical Code(s): I50.9 - Heart failure, unspecified (5) BMI 60.0-69.9, adult: Status: Chronic Category: Medical Code(s): Z68.44 - Body mass index [BMI] 60.0-69.9, adult (6) History of bariatric surgery: Status: Chronic Category: Surgical Code(s): Z98.84 - Bariatric surgery status (7) YUNG (obstructive sleep apnea): Status: Chronic Category: Medical Code(s): G47.33 - Obstructive sleep apnea (adult) (pediatric) (8) Major depressive disorder: Status: Acute Qualifiers: Major depression recurrence: recurrent Active/Remission status: currently active Major depression episode severity: moderate Qualified Code(s): F33.1 - Major depressive disorder, recurrent, moderate Category: Medical Code(s): F32.9 - Major depressive disorder, single episode, unspecified (9) Essential hypertension: Status: Chronic Category: Medical Code(s): I10 - Essential (primary) hypertension (10) Hyperlipidemia: Status: Chronic Qualifiers: Hyperlipidemia type: unspecified Qualified Code(s): E78.5 - Hyperlipidemia, unspecified Category: Medical Code(s): E78.5 - Hyperlipidemia, unspecified Plan Asia Tracey is a 65-year-old morbidly obese female with history of PTSD and hypertension. Presented with increased swelling in her legs and weight gain over the past 3 weeks. Workup in the ER concerning for CHF, volume overload, new onset A-fib. Discussed case with ER physician, request admission for f urther management of new onset A-fib and cardiology consult. #HFpEF exacerbation, new onset #Lower extremity pitting edema ? Presented with 3-week onset of weight gain, worsening lower extremity edema. Initial BNP 1550. ? Initially aggressively diuresed with Bumex drip and milrinone per cardiology recommendations and had significant urine output net -4 L, but became hy potensive. ? ECHO 04/17/2025 revealed normal biventricular systolic function and no significant diastolic dysfunction. ? Liver ultrasound not suggestive of cirrhosis. ? Lower extremity venous Dopplers equivocal for DVTs, limited study due to body habitus. However, has been started on Eliquis regardless due to new onset A- fib. ? Patient continued to have significant lower extremity pitting edema but improved today, trialed IV Bumex 1 mg and has diuresed 1 L within 1 hour. Given this urinary output, high suspicion patient has significant volume to diuresis. ? Continue IV Bumex 1 mg twice daily, spironolactone 25 mg. Follow-up urine output, renal function, electrolytes. ? Continue fluid, salt restriction. ? Renal function stable at 0.70, GFR 84. #A-fib, new onset ? Suspect likely from volume overload. Initially started on amiodarone drip, however transitioned to oral diltiazem by cardiology. ? Continue diltiazem 180 mg, bisoprolol 5 g daily. Started Eliquis 5 mg twice daily. #Hypervolemic hyponatremia ? Initial sodium 114, improved to 122 this afternoon with hypertonic saline. This was before HFpEF exacerbation was still suspected. ? Unclear etiology this time, patient takes hydrochlorothiazide at home which we will hold. ? Patient does seem hypervolemic, initial urine sodium normal. Subsequent urine sodium low at 5.0 suggesting heart failure. ? Given significant diuresis today, suspect hyponatremia may also be from heart failure. ? Chronic diarrhea may be contributing. ? Follow-up serum, urine osmolality. These are send out labs. ? Goal correction rate of 8 to 10 mEq/day. ? Follow-up BMP at 8 PM. #UTI ? UA grossly abnormal, started p.o. levofloxacin 750 mg daily. Follow-up urine cultures. #Chronic diarrhea ? Patient states this started after gastric bypass, stool PCR normal. ? Follow-up fecal elastase, calprotectin. ? Plan to refer to GI for further evaluation management. PTSD/depression: Continue home amitriptyline 10 to 20 mg nightly, lorazepam 0.5 mg twice daily as needed, prazosin 1 mg nightly, ropinirole 4 mg nightly for restless leg, and desvenlafaxine 100 mg extended release daily Morbid obesity: BMI of 64. Complicates all aspects of her care; previous bariatric surgery. Recommend follow-up with PCP to discuss medical assisted weight loss. Would benefit from GLP-1 - History of gastric bypass, has had significant diarrhea since. Will continue cholestyramine 4 g daily as needed. Will also obtain diarrhea panel to rule out infectious etiology. Full code DVT prophylaxis: Marlen
--- NOTE | 2025-04-18 18:00 | PC.NURSE ---
Pt is A&Ox4. Vital signs stable tolerating room air. PO abx given per SEP. Gar catheter d/c today. Purewick in place. IV diuretics given per SEP with adequate output. Abdominal folds and groin area with redness. Barrier cream applied. Pt resting comfortably in bed with no further needs voiced at this time. Call light within reach.
[2025-04-18 20:33] LABS: Anion Gap 10.7 mEq/L (5-15); Blood Urea Nitrogen 9 mg/dl (7-17); Calcium 8.4 mg/dl (8.4-10.2); Carbon Dioxide 29 mmol/L (22.0-30.0); Chloride 87 mmol/L (98-107); Creatinine Clearance Estimated 53 mL/min (50-200); Creatinine,Serum 0.60 mg/dl (0.52-1.04); Estimated Glomerular Filt Rate 101 ml/min (>60); GFR (African American) 122 ML/MIN (>60); Glucose 55 mg/dl (74-100); Potassium 4.7 mmoL/L (3.5-5.1); Sodium 122 mmol/L (136-145)
[2025-04-18] MEDS: ROPINIROLE 1MG TABLET 4 MG PO (21:52)
[2025-04-18] MEDS: AMITRIPTYLINE 10MG TABLET 10 MG PO (21:52)
[2025-04-18] MEDS: PRAZOSIN 1MG CAP 1 MG PO (21:54)
[2025-04-19] VITALS: PULSE 80
[2025-04-19 04:00] VITALS: PULSE 90; BMI 62.9
--- NOTE | 2025-04-19 07:55 | SW/DCPLANNER ---
Spoke with patient regarding home health services once she is medically stable and ready for discharge. Patient stated that she is interested in home health and that she does not have a preference in what agency i send her information to. With patient's insurance there is not a home health agency that would accept patient. Ky Rubio
[2025-04-19 08:00] VITALS: BP 116/61; PULSE 88; PULSE 90; RESP 17; TEMP 36.7; O2SAT 97
[2025-04-19 08:15] VITALS: O2SAT 97
[2025-04-19 08:38] LABS: Hematocrit 30.6 % (37.0-47.0); Hemoglobin 10.1 g/dL (12.2-16.2); Immature Granulocytes % 0.9 %; Mean Corpuscular HGB Conc 33.0 g/dL (31.8-35.4); Mean Corpuscular Hemoglobin 29.4 pg (27.0-31.2); Mean Corpuscular Volume 89.2 fl (81-99); Nucleated Red Blood Cells % 0 %; Platelet Count 208 K/mm3 (142-424); Red Blood Count 3.43 M/mm3 (4.20-5.40); Red Cell Distribution Width-SD 70.2 fL; White Blood Count 5.6 K/mm3 (4.8-10.8)
[2025-04-19] MEDS: dilTIAZem HCL 180MG CAP.ER.24H 180 MG PO (09:08)
[2025-04-19] MEDS: APIXABAN 5MG TABLET 5 MG PO (09:08)
[2025-04-19] MEDS: SPIRONOLACTONE 25MG TABLET 25 MG PO (09:08)
[2025-04-19] MEDS: CHOLESTYRAMINE 4 GM PO (09:08)
[2025-04-19] MEDS: BISOPROLOL 5MG TABLET 5 MG PO (09:08)
[2025-04-19 10:18] LABS: Albumin Level 3.4 g/dl (3.5-5.0); Chloride 87 mmol/L (98-107); Potassium 4.3 mmoL/L (3.5-5.1)
[2025-04-19 10:21] LABS: Alanine Aminotransferase 16 U/L (12-78); Alkaline Phosphatase 98 U/L (38-126); Anion Gap 11.3 mEq/L (5-15); Aspartate Amino Transferase 17 U/L (14-36); Bilirubin,Total 0.2 mg/dl (0.2-1.3); Carbon Dioxide 30 mmol/L (22.0-30.0)
[2025-04-19 10:22] LABS: Albumin/Globulin Ratio 1.3 (1.1-1.8); Calcium 8.3 mg/dl (8.4-10.2); Globulin 2.7 g/dL (1.3-3.2); Glucose 97 mg/dl (74-100); Total Protein,Serum 6.1 g/dl (6.3-8.2)
[2025-04-19 11:32] LABS: Sodium 123 mmol/L (136-145)
[2025-04-19 12:00] VITALS: BP 146/84; PULSE 80; PULSE 87; RESP 24; TEMP 36.8; O2SAT 96
[2025-04-19 12:33] LABS: Creatinine Clearance Estimated 53 mL/min (50-200); Estimated Glomerular Filt Rate 84 ml/min (>60); GFR (African American) 102 ML/MIN (>60)
[2025-04-19] MEDS: BUMETANIDE 1MG/4ML VIAL 1 MG IV (12:55)
--- NOTE | 2025-04-19 15:53 | EXP.DC.SUM ---
General Admission date:: 04/16/25 Hospital Course Hospital Course Hospital Course: Asia Tracey is a 65-year-old morbidly obese female with history of PTSD and hypertension. Presented with increased swelling in her legs and weight gain over the past 3 weeks. Workup in the ER concerning for CHF, volume overload, new onset A-fib. Discussed case with ER physician, request admission for further management of new onset A-fib and cardiology consult. #HFpEF exacerbation, new onset #Lower extremity pitting edema ? Presented with 3-week onset of weight gain, worsening lower extremity edema. Initial BNP 1550. ? Initially aggressively diuresed with Bumex drip and milrinone and had significant urine output net -4 L, but became hypotensive. ? ECHO 04/17/2025 revealed normal biventricular systolic function and no significant diastolic dysfunction. ? Liver ultrasound not suggestive of cirrhosis. ? Lower extremity venous Dopplers equivocal for DVTs, limited study due to body habitus. However, has been started on Eliquis regardless due to new onset A-fib. ? Restarted IV Bumex and spironolactone diuresis, and continued to have significant urine output and improvement in symptoms. Net -4 L. ? Patient's presentation may be consistent with drinking too much free water, advised on fluid restriction up to 2 L/day. ? Discharged with Bumex 1 mg daily. Will follow-up with cardiology within 1 week. #A-fib, new onset ? Suspect likely from volume overload. Initially started on amiodarone drip, however transitioned to oral diltiazem by cardiology. ? Discharged with diltiazem 180 mg, bisoprolol 5 g daily, Eliquis 5 mg twice daily. #Hypervolemic hyponatremia ? Presentation consistent with drinking too much free water before presentation. ? Patient was hypervolemic, initial urine sodium normal. Subsequent urine sodium low at 5.0 suggesting heart failure. ? Sodium is significantly improved and gradually with diuresis. From 114-123. ? Continue diuresis as above, advised on fluid restriction. #UTI ? UA grossly abnormal, discharged with levofloxacin 750 mg for 3 more days. #Chronic diarrhea ? Patient states this started after gastric bypass, stool PCR normal. ? Follow-up fecal elastase, calprotectin. ? Plan to refer to GI for further evaluation management. PTSD/depression: Continue home amitriptyline 10 to 20 mg nightly, lorazepam 0.5 mg twice daily as needed, prazosin 1 mg nightly, ropinirole 4 mg nightly for restless leg, and desvenlafaxine 100 mg extended release daily Morbid obesity: BMI of 64. Complicates all aspects of her care; previous bariatric surgery. Recommend follow-up with PCP to discuss medical assisted weight loss. Would benefit from GLP-1 - History of gastric bypass, has had significant diarrhea since. Will continue cholestyramine 4 g daily as needed. Will also obtain diarrhea panel to rule out infectious etiology. Total time spent on discharge: 33 minutes on chart review, counseling, documentation, and direct care with patient. Exam Data for Last 24 hours Vital signs and Labs for Last 24 Hours: Temp Pulse Resp BP Pulse Ox O2 Del Method 98.2 F 87 24 146/84 H 96 Room Air 04/19/25 12:00 04/19/25 12:00 04/19/25 12:00 04/19/25 12:00 04/19/25 12:00 04/19/25 15:10 Laboratory Results - last 24 hr 04/18/25 14:17: Urine Color Yellow, Urine Appearance Clear, Urine pH 5.5, Ur Specific [place] 1.005, Urine Protein Negative, Urine Glucose (UA) Negative, Urine Ketones Negative, Urine Blood 3+ A, Urine Nitrate Negative, Urine Bilirubin Negative, Urine Urobilinogen 0.2, Ur Leukocyte Esterase 2+ A, Urine RBC None, Urine WBC 5-10, Ur Squamous Epith Cells None, Urine Bacteria 2+ 04/18/25 20:09: Sodium 122 L, Potassium 4.7, Chloride 87 L, Carbon Dioxide 29, Anion Gap 10.7, BUN 9, Creatinine 0.60, Estimated Creat Clear 53, Estimated GFR 101, Est GFR ( Amer) 122, Glucose 55 L D, Calcium 8.4 04/19/25 08:10: WBC 5.6, RBC 3.43 L, Hgb 10.1 L, Hct 30.6 L, MCV 89.2, MCH 29.4, MCHC 33.0, RDW 22.5 H, Plt Count 208, MPV 9.4, Neut % (Auto) 79.2, Lymph % (Auto) 9.9 L, [place] % (Auto) 6.6, Eos % (Auto) 3.0, Baso % (Auto) 0.4, Neut # (Auto) 4.5, Lymph # (Auto) 0.6 L, [place] # (Auto) 0.4, Eos # (Auto) 0.2, Baso # (Auto) 0.0, Sodium 123 L, Potassium 4.3, Chloride 87 L, Carbon Dioxide 30, Anion Gap 11.3, BUN TNP, Creatinine TNP, Estimated Creat Clear 53, Estimated GFR 84, Est GFR ( Amer) 102, Glucose 97 D, Calcium 8.3 L, Total Bilirubin 0.2, AST 17, ALT 16, Alkaline Phosphatase 98, Total Protein 6.1 L, Albumin 3.4 L, Globulin 2.7, Albumin/Globulin Ratio 1.3 I & O for Last 24 hours: Intake & Output 04/16/25 04/17/25 04/18/25 04/19/25 23:59 23:59 23:59 23:59 Intake Total 167.507 / 941.564 1152.331 / 3321.331 1682.000 / 1682.000 Output Total 4200 / 4200 1475 / 1625 3595 / 3595 100 / 100 Balance -4032.493 / -4032.493 1846.331 / 1696.331 -1913.000 / -1913.000 -100 / -100 Weight 177.355 kg 177.35 kg 177.672 kg 177.672 kg Microbiology Reports for the Last 24 Hours: Microbiology 04/18/25 14:17 Urine,Clean Catch Urine Culture - Preliminary Gram Negative Rods Constitutional Constitutional: no acute distress and obese *Routine HEENT Exam Head: Present normocephalic Eye: Present EOMI and PERRL ENT: Present mucous membranes moist *Routine Neck Exam Neck: Present supple; Absent lymphadenopathy *Routine Respiratory Exam Respiratory: Present CTA bilaterally *Routine Cardiovascular Exam Cardiovascular: Present RRR *Routine Abdominal Exam Abdominal: Present soft and normoactive bowel sounds; Absent tenderness *Routine Extremities Exam Extremities: Present edema; Absent cyanosis or clubbing *Routine Skin Exam Skin: Present warm; Absent rash *Routine Neurological Exam Neurological: Present alert and oriented X3 Results Data Completed and Pending Labs on day of discharge: Labs from last 24 hours 04/19/25 04/18/25 04/18/25 08:10 20:09 14:17 WBC 5.6 RBC 3.43 L Hgb 10.1 L Hct 30.6 L MCV 89.2 MCH 29.4 MCHC 33.0 RDW 22.5 H Plt Count 208 MPV 9.4 Neut % (Auto) 79.2 Lymph % (Auto) 9.[address] [place] % (Auto) 6.6 Eos % (Auto) 3.0 Baso % (Auto) 0.4 Neut # (Auto) 4.5 Lymph # (Auto) 0.[address] # (Auto) 0.4 Eos # (Auto) 0.2 Baso # (Auto) 0.0 Sodium 123 L 122 L Potassium 4.3 4.7 Chloride 87 L 87 L Carbon Dioxide 30 29 Anion Gap 11.3 10.7 BUN TNP 9 Creatinine TNP 0.60 Estimated Creat Clear 53 53 Estimated GFR 84 101 Est GFR ( Amer) 102 122 Glucose 97 D 55 L D Calcium 8.3 L 8.4 Total Bilirubin 0.2 AST 17 ALT 16 Alkaline Phosphatase 98 Total Protein 6.1 L Albumin 3.4 L Globulin 2.7 Albumin/Globulin Ratio 1.3 Urine Color Yellow Urine Appearance Clear Urine pH 5.5 Ur Specific [place] 1.005 Urine Protein Negative Urine Glucose (UA) Negative Urine Ketones Negative Urine Blood 3+ A Urine Nitrate Negative Urine Bilirubin Negative Urine Urobilinogen 0.2 Ur Leukocyte Esterase 2+ A Urine RBC None Urine WBC 5-10 Ur Squamous Epith Cells None Urine Bacteria 2+ Preliminary micro results at discharge 04/18/25 14:17 Urine Culture - Preliminary Urine,Clean Catch Gram Negative Rods DS: Diagnosis Discharge Diagnosis (1) New onset a-fib: Status: Acute Code(s): I48.91 - Unspecified atrial fibrillation (2) Hyponatremia: Status: Acute Code(s): E87.1 - Hypo-osmolality and hyponatremia (3) Hypochloremia: Status: Acute Code(s): E87.8 - Other disorders of electrolyte and fluid balance, not elsewhere classified (4) CHF (congestive heart failure): Status: Acute Code(s): I50.9 - Heart failure, unspecified (5) BMI 60.0-69.9, adult: Status: Chronic Code(s): Z68.44 - Body mass index [BMI] 60.0-69.9, adult (6) History of bariatric surgery: Status: Chronic Code(s): Z98.84 - Bariatric surgery status (7) YUNG (obstructive sleep apnea): Status: Chronic Code(s): G47.33 - Obstructive sleep apnea (adult) (pediatric) (8) Major depressive disorder: Status: Acute Code(s): F32.9 - Major depressive disorder, single episode, unspecified Qualifiers: Active/Remission status: currently active Major depression episode severity: moderate Major depression recurrence: recurrent Qualified Code(s): F33.1 - Major depressive disorder, recurrent, moderate (9) Essential hypertension: Status: Chronic Code(s): I10 - Essential (primary) hypertension (10) Hyperlipidemia: Status: Chronic Code(s): E78.5 - Hyperlipidemia, unspecified Qualifiers: Hyperlipidemia type: unspecified Qualified Code(s): E78.5 - Hyperlipidemia, unspecified Meds Home Medications and Allergies Home Medications ?Medication ?Instructions ?Recorded ?Confirmed ?Type cholestyramine (with sugar) 4 gram 1 ea PO DAILY 09/09/23 04/26/25 History oral powder diphenoxylate-atropine 2.5 1 tab PO BID 09/09/23 04/26/25 History mg-0.025 mg tablet cyanocobalamin (vitamin B-12) 1,000 mcg PO DAILY #30 tabs 10/11/24 04/26/25 Rx 1,000 mcg tablet blood pressure monitor #1 ea 11/29/24 04/26/25 Rx cariprazine 3 mg capsule (Vraylar) 3 mg PO DAILY #30 caps 01/02/25 04/26/25 Rx cholecalciferol (vitamin D3) 125 125 mcg PO DAILY #90 tabs 02/01/25 04/26/25 Rx mcg (5,000 unit) tablet (Vitamin D3) amitriptyline 10 mg tablet 10 - 20 mg (1 - 2 x 10 mg) PO HS 02/16/25 04/26/25 Rx #60 tabs atorvastatin 10 mg tablet 10 mg PO DAILY #90 tabs 04/04/25 04/26/25 Rx lorazepam 0.5 mg tablet 0.5 mg PO BID PRN anxiety #30 tabs 04/04/25 04/26/25 Rx ropinirole 4 mg tablet 4 mg PO HS #30 tabs 04/04/25 04/26/25 Rx desvenlafaxine succinate 100 mg 100 mg PO DAILY 04/17/25 04/26/25 History tablet,extended release 24 hr apixaban 5 mg tablet (Eliquis) 5 mg PO BID 30 days #60 tabs 04/19/25 04/26/25 Rx bisoprolol fumarate 5 mg tablet 5 mg PO DAILY 30 days #30 tabs 04/19/25 04/26/25 Rx bumetanide 1 mg tablet 1 mg PO DAILY 30 days #30 tabs 04/19/25 04/26/25 Rx diltiazem HCl 180 mg 180 mg PO DAILY 30 days #30 caps 04/19/25 04/26/25 Rx capsule,extended release 24 hr meloxicam 15 mg tablet 15 mg PO DAILY PRN pain #30 tabs 04/19/25 04/26/25 Rx semaglutide (weight loss) 0.25 0.25 mg (0.5 mL) SQ WEEKLY #2 mL 04/24/25 04/26/25 Rx mg/0.5 mL subcutaneous pen injector (Wegovy) zinc oxide 13 % topical cream 1 applic topical QID PRN skin 04/24/25 04/26/25 Rx (Diaper Rash) irritation #113 grams doxycycline hyclate 100 mg tablet 100 mg PO BID #14 tabs 04/25/25 04/26/25 Rx New Prescriptions to Start Prescriptions: apixaban [Eliquis] Onur Barajas bisoprolol fumarate Onur Barajas bumetanide Karl,Onur diltiazem HCl Onur Barajas Allergies Allergy/AdvReac Type Severity Reaction Status Date / Time morphine AdvReac Intermediate Nausea Verified 04/26/25 11:37 Discharge Plan Disposition Patient Disposition: Home, Self-Care Condition: Fair Discharge Order Discharge Orders: Discharge Order (Routine); Ordered 04/19/25 Ordered By: Onur Barajas Follow up Plan Follow up with: Heidi Childress APRN [Primary Care Provider, Family Practice] - 04/26/25 9:20 am Carlyle Pak PA [Physician Recreation Technician, Cardiology] - 04/26/25 11:30 am Prescriptions/Medication Reconciliation: New diltiazem HCl 180 mg Capsule,Extended Release 24hr 180 mg PO DAILY 30 Days Qty: 30 0RF bisoprolol fumarate 5 mg Tablet 5 mg PO DAILY 30 Days Qty: 30 0RF Eliquis 5 mg Tablet 5 mg PO BID 30 Days Qty: 60 0RF bumetanide 1 mg tablet 1 mg PO DAILY 30 Days Qty: 30 0RF Continued cholecalciferol (vitamin D3) [Vitamin D3] 125 mcg (5,000 unit) tablet 125 mcg PO DAILY Qty: 90 1RF cholestyramine (with sugar) 4 gram powder 1 ea PO DAILY diphenoxylate-atropine 2.5-0.025 mg tablet 1 tab PO BID amitriptyline 10 mg tablet 10 - 20 mg PO HS Qty: 60 2RF (DME) blood pressure monitor Kit See Rx Instructions .Route Qty: 1 0RF Rx Instructions: As directed cyanocobalamin (vitamin B-12) 1,000 mcg tablet 1,000 mcg PO DAILY Qty: 30 5RF Vraylar 3 mg capsule 3 mg PO DAILY Qty: 30 2RF atorvastatin 10 mg tablet 10 mg PO DAILY Qty: 90 1RF ropinirole 4 mg tablet 4 mg PO HS Qty: 30 2RF lorazepam 0.5 mg tablet 0.5 mg PO BID PRN (Reason: anxiety) Qty: 30 1RF desvenlafaxine succinate 100 mg tablet extended release 24 hr 100 mg PO DAILY Changed meloxicam 15 mg tablet 15 mg PO DAILY PRN (Reason: pain) Qty: 30 2RF Discontinued lisinopril 30 mg tablet 30 mg PO DAILY Qty: 30 2RF hydrochlorothiazide 25 mg tablet 25 mg PO DAILY Qty: 90 1RF No Action Wegovy 0.25 mg/0.5 mL pen injector 0.25 mg SQ WEEKLY Qty: 2 0RF Rx Instructions: administer weeks 1 through 4 of therapy Diaper Rash 13 % cream 1 applic topical QID PRN (Reason: skin irritation) Qty: 113 2RF Rx Instructions: Please include nystatin, maalox, cholestyramine, zinc oxide doxycycline hyclate 100 mg tablet 100 mg PO BID Qty: 14 0RF Problem Reconciliation Problems Reviewed?: Yes Patient Discharge Instructions Patient Instructions: DI for Heart Failure, DI for Atrial Fibrillation, DI for Hyponatremia, Edema, Stop Light Heart Failure Print Language: Belarusian Providers Primary Care Provider: Heidi Childress Admit Provider: Baudilio Riggins Attending Provider: Baudilio Riggins
[2025-04-19 16:00] VITALS: BP 120/72; PULSE 80; PULSE 98; RESP 17; TEMP 36.7; O2SAT 96
[2025-04-20 06:34] LABS: Osmolality, Urine 220 mOsmol/kg (.)
--- NOTE | 2025-04-20 10:29 | SW/DCPLANNER ---
Spoke with patient on the phone. Patient stated that she is doing well. Patient stated that she is aware of her upcoming appointments. Patient stated that she was able to get her new medicine picked up from clinic pharmacy. Patient stated that she has no concerns or questions at this time. Ky Rubio
== END 2025-04-19 17:17 | disposition home or self-care (01) ==
LOC: ER 18:17 → ICU 04-17 05:29 → 2ND 04-18 13:51 → ICU 04-27 11:48
PROVIDERS: Nurse Practitioner; Student in an Organized Health Care Education/Training Program; Admitting Provider Internal Medicine Adolescent Medicine; Emergency Provider Emergency Medicine; PCP Nurse Practitioner; Visit Provider Internal Medicine Adolescent Medicine
DX: I48.20 Chronic atrial fibrillation, unspecified (principal); I11.0 Hypertensive heart disease with heart failure; I50.31 Acute diastolic (congestive) heart failure; E87.1 Hypo-osmolality and hyponatremia; F33.1 Major depressive disorder, recurrent, moderate; Z68.44 Body mass index [BMI] 60.0-69.9, adult; N39.0 Urinary tract infection, site not specified; E66.01 Morbid (severe) obesity due to excess calories; D64.9 Anemia, unspecified; F41.1 Generalized anxiety disorder; G47.33 Obstructive sleep apnea (adult) (pediatric); E78.5 Hyperlipidemia, unspecified; F43.10 Post-traumatic stress disorder, unspecified; K52.9 Noninfective gastroenteritis and colitis, unspecified; E87.8 Other disorders of electrolyte and fluid balance, not elsewhere classified; Z98.84 Bariatric surgery status; Z88.5 Allergy status to narcotic agent; Z79.899 Other long term (current) drug therapy; G89.29 Other chronic pain; M54.9 Dorsalgia, unspecified; M19.90 Unspecified osteoarthritis, unspecified site; J84.9 Interstitial pulmonary disease, unspecified; Z90.49 Acquired absence of other specified parts of digestive tract; Z98.890 Other specified postprocedural states; Z90.710 Acquired absence of both cervix and uterus; Z96.659 Presence of unspecified artificial knee joint; Z82.49 Family history of ischemic heart disease and other diseases of the circulatory system; Z56.0 Unemployment, unspecified; Z79.01 Long term (current) use of anticoagulants; N28.89 Other specified disorders of kidney and ureter; I34.0 Nonrheumatic mitral (valve) insufficiency; I07.1 Rheumatic tricuspid insufficiency
CPT/HCPCS: 36415; 51702; 71045; 71275; 76705; 80048; 80053; 80061; 81001; 83036; 83690; 83735; 83880; 83930; 83935; 84439; 84443; 84484; 84540; 85007; 85025; 85027; 85378; 85610; 87081; 87086; 87088; 87186; 87507; 93005; 93306; 93970; 96361; 96365; 96366; 96367; 96375; 96376; 97162; 97530; 99285; G0378; J0282; J0612; J1650; J1939; J2260; J2405; J7060; J7120; J7131; Q9967

== ENCOUNTER 2025-04-24 17:31 | Outpatient (CLI) | payer MEDICAID, SELFPAY ==
--- OUTSIDE RECORDS SUMMARY | 2023-04-27 08:00 | XMS_ITS | Encounter Summary ---
Author Organization [place] [address] Care Team Providers Care Paradi Tender Name Role Phone Judy Mars APRN Primary Care Provider [phone] Reason for Visit * Oncology Medication Prior Authorization (Routine) - Closed Specialty Diagnoses / Procedures Referred By Contac t Referred To Contact Oncology Diagnoses Postsurgical malabsorption Iron deficiency anemia, unspecified iron deficiency anemia type H/O: iron deficiency anemia S/P gastric bypass Procedures [place] IRON SUCROSE INJECTION Judy Mars APRN [address] [place] [address] Phone: tel: fax: [address] [place] [address] Phone: tel: fax: Referral ID Status Reason Start Date Expiration Date Visits Re quested Visits Authorized [id number] Closed 03/05/2023 03/04/2024 1 99 Encounter Details Date Type Department Care Team (Late st Contact Info) Description 04/27/2023 8:00 AM EDT Hospital Encounter [address] [place] [address] Excused Social History Tobacco Use [...] Date Recorded PHQ-2 Total Score 0 10/17/2022 [facility] of Occupat ional [facility] - Occupational Stress Questionnaire Answer Date [...] on filedocumented in this encounter Care Teams Paradi Tender Relationship Specialty Start Date End Date Judy Mars APRN [address] [place] [address] PCP - General Nurse Practitioner-Family 07/17/1709/12 documented as of this encounter
--- OUTSIDE RECORDS SUMMARY | 2025-02-28 15:30 | XMS_ITS | Encounter Summary ---
Author Organization [facility] Address [address] [place] [address] Care Team Providers Care Job Cost Estimator Name Role Phone Heidi Childress APRN Primary Care Provider [phone] Reason for Visit * Reason Comments Follow-up Encounter Details Date Type Department Care Team (Latest Contact Info) Description 02/28/2025 3:30 PM EDT Office Visit [facility] [address] [place] [address] Hodan Hinkle APRN [address] [place] [phone] Primary osteoarthritis of left knee (Primary Dx) Social History Tobacco Use Types Packs/Day Years Used Date Smoking Tobacco: Never Smokeless Tobacco: Never Alcohol Use Standard Drinks/Week Comments No 0 (1 standard drink = 0.6 oz pur e alcohol) Overall Financial Resource Strain ([facility]) Answe r Date Recorded How hard is it for you to pa y for the very basics like food, housing, medical care, and heating? Very hard 11/05/2020 PHQ-2 Answer Date Recorded PHQ-2 Total Score 0 10/17/2022 [facility] [place] of Occupat ional Health - Occupational Stress [...] included. Hodan Hinkle TAMI/ Orthopaedic Surgery/Sports Medicine [address] [place] [address] Patient Name: Asia Tracey Date of : [...] the need for functional improvement now and prison for the overall health of the knee. [...] leg documented in this encounter Care Teams Job Cost Estimator Relationship Specialty Start Date End Date Heidi Childress APRN [address] [facility] [address] [place] [address] PCP - General Nurse Practitioner 12/04/23 documented as of this encounter
--- OUTSIDE RECORDS SUMMARY | 2025-04-05 15:00 | XMS_ITS | Encounter Summary ---
Author Organization [facility] Address [address] [place] [address] Care Team Providers Care Sink Cutter Name Role Phone Heidi Childress APRN Primary Care Provider [phone] Reason for Visit * Reason Comments Follow-up Injections Encounter Details Date Type Department Care Team ([facility] st Contact Info) Description 04/05/2025 3:00 PM EDT [facility] [address] [place] [address] Kai Velasquez MD [address] [place] [address] Primary osteoarthritis of left knee (Primary Dx) Social History Tobacco Use Types Packs/Day Years Used Date Smoking Tobacco: Never Smokeless Tobacco: Never Alcohol Use Standard Drinks/Week Comments No 0 (1 standard drink = 0.6 oz pur e alcohol) Overall Financial Resource Strain ([facility]) Answe r Date Recorded How hard is it for you to pa y for the very basics like food, housing, medical care, and heating? Very hard 11/05/2020 PHQ-2 Answer Date Recorded PHQ-2 Total Score 0 10/17/2022 [place] of Occupat ional Health - Occupational Stress [...] documented in this encounter Progress Notes * Marcy Melton MA - 04/05/2025 3:00 PM EDTAssociated Order(s): Large Joint Injection/Arthrocentesis: L knee Large Joint Injection/Arthrocentesis: L knee on 04/05/2025 3:00 PM Indications: pain Details: 22 G needle, anterolateral approach Medications: 2.5 mL sodium hyaluronate (viscosup) 10 mg/mL Outcome: tolerated well, no immediate complications Procedure, treatment alternatives, risks and benefits explained, specific risks discussed. Consent was given by the patient. Immediately prior to procedure a time out was called to verify the correctpatient, procedure, equipment, client support associate and site/side marked as required. Patient was prepped and draped in the usual sterile fashion. * Kai Velasquez MD - 04/05/2025 3:00 PM EDT Images from the original note were not included. Asia Tracey 04/05/2025 [id number] CHIEF COMPLAINT: Recheck left knee HISTORY OF PRESENT ILLNESS: Asia Tracey returns today to get her first Supartz injection intoher left knee. She has night-pain, start-up pain and difficulty moving around. PHYSICAL EXAMINATION: On examination, she has full extension in both knees. There is crepitus throughout range of motion. Global tenderness in the left knee. No point tenderness. No erythema. No warmth. No sign of infection other than trace effusions. ASSESSMENT: Known left knee osteoarthritis. PLAN: I discussed with her her options. After sterile prep, I injected her left knee . She tolerated it well. I will see her back in a week for her next injection. PROCEDURE: Viscosupplementation injection was given today in office. Kai Velasquez MD documented in this encounter Plan of Treatment [...] bearing exercises documented as of this encounter Procedures Procedure Name Priority Date/Time Associated Diagnosis Comments DC ARTHROCENTESIS ASPIR&/INJ MAJOR JT/BURSA W/O US Routine 04/05/2025 3:00 PM EDT Primary osteoarthritis of left knee documented in this encounter Results * DC ARTHROCENTESIS ASPIR&/INJ MAJOR JT/BURSA W/O US (04/05/2025 3:00 PM EDT) Narrative [facility] - 04/05/2025 3:00 PM EDT LinhCarmi, MA 04/05/2025 3:02 PM Large Joint Injection/Arthrocentesis: L knee on 04/05/2025 3:00 PM Indications: pain Details: 22 G needle, anterolateral approach Medications: 2.5 mL sodium hyaluronate (viscosup) 10 mg/mL Outcome: tolerated well, no immediate complications Procedure, treatment alternatives, risks and benefits explained, specific risks discussed. Consent was given by the patient. Immediately prior to procedure a time out was called to verify the correct patient, procedure, equipment, client support associate and site/side marked as required. Patient was prepped and draped in the usual sterile fashion. Kai Velasquez MD PROCEDURE/MINOR SURGICAL ORDERA BLES Final Result [facility] documented in this encounter Visit Diagnoses Diagnosis Primary osteoarthritis of left knee- Primary Primary localized osteoarthrosis, lower leg documented in this encounter Administered Medications Inactive Administered Medications - up to 1 most recent administrations Medication Order MAR Action Action Date Dose Rate Site sodium hyaluronate (viscosup) injection 2.5 mL 2.5 mL, Intra-articular, ONCE PRN, 1 dose, Starting on Thu04/05/25 at 1500, Until Thu04/05/25 at 1500, Dx: 1. Primary osteoarthritis of left kneeIndications:Primary osteoarthritis of left knee Given 04/05/2025 3:00 PM EDT 2.5 mL Left Knee documented in this encounter Orders Medications Ordered That Villa ht Not Have Been Administered Count Last Ordered Date First Ordered Date sodium hyaluronate (viscosup ) injection 2.5 mL 1 04/05/2025 documented in this encounter Care Teams Sink Cutter Relationship Specialty Start Date End Date Heidi Childress, T[facility] [place] [address] [place] [phone] PCP - General Nurse Practitioner 12/04/23 documented as of this encounter
[2025-04-24 19:39] LABS: Hematocrit 33.7 % (37.0-47.0); Hemoglobin 10.7 g/dL (12.2-16.2); Immature Granulocytes % 0.5 %; Mean Corpuscular HGB Conc 31.8 g/dL (31.8-35.4); Mean Corpuscular Hemoglobin 28.9 pg (27.0-31.2); Mean Corpuscular Volume 91.1 fl (81-99); Nucleated Red Blood Cells % 0 %; Platelet Count 269 K/mm3 (142-424); Red Blood Count 3.70 M/mm3 (4.20-5.40); Red Cell Distribution Width-SD 69.8 fL; White Blood Count 7.7 K/mm3 (4.8-10.8)
[2025-04-24 20:08] LABS: Albumin Level 3.4 g/dl (3.5-5.0); Chloride 90 mmol/L (98-107); Potassium 4.2 mmoL/L (3.5-5.1); Sodium 128 mmol/L (136-145)
[2025-04-24 20:10] LABS: Blood Urea Nitrogen 9 mg/dl (7-17); Creatinine,Serum 0.60 mg/dl (0.52-1.04); Estimated Glomerular Filt Rate 101 ml/min (>60); GFR (African American) 122 ML/MIN (>60)
[2025-04-24 20:11] LABS: Alanine Aminotransferase 15 U/L (12-78); Albumin/Globulin Ratio 1.4 (1.1-1.8); Alkaline Phosphatase 85 U/L (38-126); Anion Gap 11.2 mEq/L (5-15); Aspartate Amino Transferase 17 U/L (14-36); Bilirubin,Total 0.3 mg/dl (0.2-1.3); Calcium 8.5 mg/dl (8.4-10.2); Carbon Dioxide 31 mmol/L (22.0-30.0); Globulin 2.5 g/dL (1.3-3.2); Glucose 79 mg/dl (74-100); Iron 49 ug/dL (37-170); Total Protein,Serum 5.9 g/dl (6.3-8.2)
[2025-04-24 20:21] LABS: Total Iron Binding Capacity 344 ug/dL (265-497)
[2025-04-24 20:46] LABS: Ferritin 46.4 ng/ml (11.1-264)
--- OUTSIDE RECORDS SUMMARY | 2025-04-25 17:33 | XMS_ITS | Encounter Summary ---
Author Organization [facility] Address [address] [place] [address] Care Team Providers Care Cable Puller Name Role Phone Heidi Childress APRN Primary Care Provider [phone] Encounter Details Date Type Department Care Team (Late st Contact Info) Description 03/24/2025 Telephone [facility] [address] [place] [address] Kai Velasquez MD [address] [address] Social History Tobacco Use Types Packs/Day Years [...] Date Recorded PHQ-2 Total Score 0 10/17/2022 [facility] [place] [facility] - Occupational [...] I see she's ready to schedule. Just DOLLYI, thanks! * Telephone Encounter - Maximus Gracia [...] on filedocumented in this encounter Care Teams Cable Puller Relationship Specialty Start Date End Date Heidi Childress APRN [facility] [address] [place] [phone] PCP - General Nurse Practitioner 12/04/23 documented as of this encounter
--- OUTSIDE RECORDS SUMMARY | 2025-04-25 17:33 | XMS_ITS | Encounter Summary ---
Author Organization [facility] Address [address] [place] [address] Care Team Providers Care Director Manufacturing Engineering Name Role Phone Heidi Childress APRN Primary Care Provider [phone] Reason for Referral * In Office Procedure (Routine) - AFF Authorized Specialty Diagnoses / Procedures Referred By Contac t Referred To Contact Orthopedic Surgery Diagnoses Primary osteoarthritis of left knee Procedures [facility] MEDICATION/PROCEDURE AUTH Hodan Hinkle APRN [address] [place] [address] Phone: tel: fax: [place] [address] Phone: tel: fax: Referral ID Status Reason Start Date Expiration Date Visits Requested Visits Authorized [id number] AFF Authorized 03/14/2025 03/14/2026 1 1 Encounter Details Date Type Department Care Team (Late st Contact Info) Description 03/14/2025 Orders Only [facility] [address] [place] [address] Hodan Hinkle APRN [address] [place] [address] Primary osteoarthritis of left knee [...] Score 0 10/17/2022 [facility] - Occupational Stress Questionnaire Answer [...] 08/2024 documented in this encounter Care Teams Director Manufacturing Engineering Relationship Specialty Start Date End Date Heidi Childress APRN [address] [facility] [address] [place] [address] PCP - General Nurse Practitioner 12/04/23 documented as of this encounter
--- OUTSIDE RECORDS SUMMARY | 2025-04-25 17:33 | XMS_ITS | Encounter Summary ---
Author Organization [facility] Address [address] [place] [address] Care Team Providers Care Hand Stonecutter Name Role Phone Heidi Childress APRN Primary Care Provider [phone] Encounter Details Date Type Department Care Team (Late st Contact Info) Description 03/14/2025 Telephone [facility] [address] [place] [address] Hodan Hinkle APRN [address] [place] [id number] Social History Tobacco Use Types Packs/Day Years [...] Recorded PHQ-2 Total Score 0 10/17/2022 [facility] [place] of Occupat ional Health - Occupational Stress [...] on filedocumented in this encounter Care Teams Hand Stonecutter Relationship Specialty Start Date End Date Heidi Childress APRN [facility] [address] [place] [address] PCP - General Nurse Practitioner 12/04/23 documented as of this encounter
--- OUTSIDE RECORDS SUMMARY | 2025-04-25 17:33 | XMS_ITS | Clinical Summary ---
Author Organization [facility] Address [address] [address] Care Team Providers Care Distribution Lead Name Role Phone Heidi Childress APRN Primary Care Provider [phone] Allergies Active Allergy Reactions Criticality Noted Date [...] (01/16/2023): Added automatically from request for surgery [id number] Primary osteoarthritis of both knees 01/06/2023 Restless [...] (11/05/2021): Added automatically from request for surgery [id number] Iron deficiency anemia due t o chronic [...] 3:00 PM EDT Office Visit [facility] [address] [place] [address] Kai Velasquez MD Primary osteoarthritis of left knee (Primary Dx) 03/24/2025 Telephone [facility] [address] [place], [place] [id number] Kai Velasquez MD 03/22/2025 Telephone [facility] [address] [place], [place] [id number] Hodan Hinkle APRN Knee Pain 03/14/2025 Orders Only [facility] [address] [place] [address], [place] [phone] Hodan Hinkle APRN Primary osteoarthritis of left knee (Primary Dx) 03/14/2025 [facility] [address] [place] [address] Hodan Hinkle APRN 02/28/2025 3:30 PM EDT [facility] [address] [place] [id number] Hodan Hinkle APRN Primary osteoarthritis of left knee (Primary Dx) 02/17/2025 3:30 PM EDT Telemedicine [facility] [address] [facility], [place] [phone] Rob Del Rosario MD Adenomatous polyp of transverse colon (Primary Dx); Functional diarrhea; Irritable bowel syndrome with diarrhea 02/13/2025 Travel from Last 3 Months Immunizations Immunization Administration [...] malleolus fracture; [facility]: [facility] Evans [facility]; [facility] Service: Orthopedics Medical devices from this surgery are in the Medical Devices section. COLONOSCOPY TOTAL KNEE ARTHROPLASTY 03/18/2023 Knee/Right RIGHT TOTAL KNEE ARTHROPLASTY; Surgeon: Trevor Lopez MD; [facility]; Service: Orthopedics Medical devices from this [...] Date Recorded PHQ-2 Total Score 0 10/17/2022 [facility] [place] of Occupat ional Health - Occupational Stress [...] bearing exercises Medical Devices Implanted Type Area Concrete Inspector Device Identifier Shelf Expiration Date Model / Serial / Lot Plate Tightrp 72mm F/Syndsms Rpr 6hl Lck Ankl/Ft Delt Ligmt - [id number] Implanted:Qty: 1 on 11/12/2021 at [facility] [place] Right: Ankle ARTHREX AR-8943T- 06 / / Screw 3.5x14mm Nlckg Aftab Scr Ft Sd Clav Ankl T15 Hxlb - [id number] Implanted:Qty: 2 on 11/12/2021 at [facility] Right: Ankle ARTHREX AR-8835-1 4 / / Screw 3.5x16mm Nlckg Aftab Scr Ft Sd Clav Ankl T15 Hxlb - [id number] Implanted:Qty: 1 on 11/12/2021 at [facility] Right: Ankle ARTHREX AR-8835-1 6 / / Screw 3.5x18mm Nlckg Aftab Scr Ft Sd Clav Ankl T15 Hxlb - [id number] Implanted:Qty: 1 on 11/12/2021 at [facility] Right: Ankle ARTHREX AR-8835-1 8 / / Screw 3.5x14mm Lck Aftab Scr Ft Sd Clav Ankl T15 Hxlb Drv - [id number] Implanted:Qty: 1 on 11/12/2021 at [facility] Right: Ankle ARTHREX AR-8835L- 14 / / Screw 3.5x16mm Lck Aftab Scr Ft Sd Clav Ankl T15 Hxlb Drv - [id number] Implanted:Qty: 1 on 11/12/2021 at [facility] Right: Ankle ARTHREX AR-8835L- 16 / / Gmk Tibial Tray Cemented Right S3 - [id number] Implanted:Qty: 1 on 03/18/2023 by Trevor Lopez MD at [facility] Right: Knee [employer] [id number] 11/18/2027 02.07.120 3R / / [id number] Insert Tibial Gmk-Sphere E-Cross Flex Cr 3r-10mm - [id number] Implanted:Qty: 1 on 03/18/2023 by Tervor Lopez MD at [facility] Right: Knee [employer] [id number] 03/02/2027 02.12.E03 10CRR / / [id number] Cement Bone Full Pack- [employer] Simplex - [id number] Implanted:Qty: 2 on 03/18/2023 by Trevor Lopez MD at [facility] Right: Knee TONY:ORTHOPED ICS [id number] 05/12/2025 6191-1-01 0 / / [id number] Sphere Femur Cemented Right S3 + - [id number] Implanted:Qty: 1 on 03/18/2023 by Trevor Lopez MD at [facility] Right: Knee [employer] [id number] 11/27/2027 02.12.002 3R / / [id number] Insert Patella Resurfacing Gmk-Sphere E-Cross Size 2 - [id number] Implanted:Qty: 1 on 03/18/2023 by Trevor Lopez MD at [facility] Right: Knee [employer] [id number] 01/04/2028 02.12.E00 2RP / / [id number] Procedures Procedure Name Priority Date/Time Associated Diagnosis Comments NM ARTHROCENTESIS ASPIR&/INJ MAJOR JT/BURSA W/O US Routine 04/05/2025 3:00 PM EDT Primary osteoarthritis of left knee HM COLONOSCOPY Routine 08/15/2020 ACUTE HEPATITIS PANEL Routine 08/10/2018 4:16 PM EST Exposure to hepatitis MM MAMMO DIGITAL SCREENING W CAD BILAT Routine 07/16/2010 11:05 AM EST Other screening mammogram from Last 3 Months or Most Recently Relevant to Health Maintenance Results * NM ARTHROCENTESIS ASPIR&/INJ MAJOR JT/BURSA W/O US (04/05/2025 3:00 PM EDT) Narrative [facility] - 04/05/2025 3:00 PM EDT Linh [place], [place] 04/05/2025 3:02 PM Large Joint Injection/Arthrocentesis: [...] to verify the correct patient, procedure, equipment, database support and site/side marked as required. Patient was prepped and draped in the usual sterile fashion. Kai Velasquez MD PROCEDURE/MINOR SURGICAL ORDERA BLES Final Result [facility] * COLONOSCOPY (08/15/2020) us Historical Provider HEALTH MAINTENANCE Final Res ult SEP OFFICE * ACUTE HEPATITIS PANEL (08/10/2018 4:16 PM EST) Hep Bs Ag Non-Reacti ve Non-Reacti ve 08/10/2018 9:11 PM EST [facility]REFERRED [facility] Hep B Core IgM Non-Reacti ve Non-Reacti ve 08/10/2018 9:11 PM EST [facility] Hep A IgM Non-Reacti ve Non-Reacti ve 08/10/2018 9:11 PM EST [facility] Hep C Ab Non-Reacti ve Non-Reacti ve 08/10/2018 9:11 PM EST PREFERRED LAB [employer] Blood Venipuncture / Unknown 08/10/2018 4:16 PM EST 08/10/2018 4:16 PM EST Judy Mars WORD PROCESSING SPECIALIST CHEMISTRY ORDERABLES Final Result Performing Organization Address City/[facility] Co de Phone Number [employer] [address] [facility] , [place] [address] * MM MAMMO DIGITAL SCREENING W CAD BILAT (07/16/2010 11:05 AM EST) Anatomical Region Laterality Modality Breast Bilateral Mammography 07/16/2010 3:10 PM EST Impressions 07/17/2010 10:12 AM EST IMPRESSION: No radiographic evidence of malignancy ([id number]) RECOMMENDATION: Routine screening mammogram in 1 year. [...] IMPRESSION IMPRESSION: No radiographic evidence of malignancy ([id number]) RECOMMENDATION: Routine screening mammogram in 1 year. Amauri Benz MD IMG MAMMOGRAPHY ORDERABLES Fin al Result from Last 3 Months or Most Recently Relevant to Health Maintenance Insurance [email or web address] [facility] MDR MDR MDR Care Teams Distribution Lead Relationship Specialty Start Date End Date Heidi Childress APRN [address] [facility] [address] [place] [address] PCP - General Nurse Practitioner 12/04/23
--- OUTSIDE RECORDS SUMMARY | 2025-04-25 17:33 | XMS_ITS | Encounter Summary ---
Author Organization [facility] Address [address] [place] [address] Care Team Providers Care Purse Seining Hand Name Role Phone Heidi Childress APRN Primary Care Provider [phone] Reason for Visit * Reason Onset Date Comments Knee Pain 03/22/2025 Encounter Details Date Type Department Care Team (Late st Contact Info) Description 03/22/2025 Telephone [facility] [address] [place] [address] Hodan Hinkle APRN [address] [place] [address] Knee Pain Social History Tobacco [...] Date Recorded PHQ-2 Total Score 0 10/17/2022 [facility] [place] of Occupat ional Health - Occupational Stress [...] of Assessment Author No 10/17/2022 7:59 AM iVaney Wiggins CCMA * Is the person blind [...] TO SCHEDULE SUPARTZ LEFT KNEE APPROVED AUTH# [id number] VALID 07/29/2024 - 07/29/2025 * Telephone Encounter - Claudia Chávez - 03/23/2025 12:16 PM EDT Okay to schedule. MLD 03/23/2025 * Telephone Encounter - Vicki Minor Clerical Staff - 03/22/2025 7:53 AM EDTSummary: SUPARTZ LEFT KNEE PLEASE REVIEW BENEFITS IN CHART - CHART# [id number] APPROVED AUTH# [id number] VALID 07/29/2024 - 07/29/2025 documented in this [...] on filedocumented in this encounter Care Teams Purse Seining Hand Relationship Specialty Start Date End Date Heidi Childress APRN [address] [facility] [address] [place], [place] [phone] PCP - General Nurse Practitioner 12/04/23 documented as of this encounter
== END 2025-04-24 23:59 | disposition home or self-care (01) ==
LOC: LAB.DROPOF 04-25 17:31
PROVIDERS: PCP Nurse Practitioner; Visit Provider Nurse Practitioner
DX: I50.31 Acute diastolic (congestive) heart failure (principal); E66.01 Morbid (severe) obesity due to excess calories; D64.9 Anemia, unspecified; Z68.44 Body mass index [BMI] 60.0-69.9, adult
CPT/HCPCS: 80053; 82728; 83540; 83550; 85025

== ENCOUNTER 2025-05-23 08:22 | Day surgery (SDC) | payer MEDICAID, SELFPAY ==
[2025-05-23 08:25] VITALS: BMI 64.0
[2025-05-23 08:45] VITALS: PULSE 135
[2025-05-23 08:46] VITALS: BP 163/101; PULSE 127; RESP 18; TEMP 36.9; O2SAT 95
[2025-05-23] MEDS: 0.9 % SODIUM CHLORIDE 500 ML 25 ML IV (10:00)
[2025-05-23 10:51] VITALS: BP 114/53; BP 159/47; PULSE 96; PULSE 98; RESP 18; TEMP 37; O2SAT 100; O2SAT 99
[2025-05-23 10:54] VITALS: PULSE 99
--- NOTE | 2025-05-23 15:29 | P.PCN_ITS ---
[facility] Cardioversion Cardioversion Date: 05/23/25 (1045am) Provider:: Pierce Pablo MD Procedure Performed:: Electrical cardioversion Diagnosis:: Atrial fibrillation Procedure Summary:: Patient was brought to the cardiac Continuous Loft Operator as an outpatient.? After informed consent was obtained, anesthesia provided sedation and patient received a single 200 J synchronized shock converting her from atrial fibrillation to sinus rhythm.? Patient tolerated the procedure well with no complications. Complications:: None Conculsion:: Successful electrical cardioversion from atrial fibrillation to sinus rhythm.
== END 2025-05-23 11:13 | disposition home or self-care (01) ==
LOC: CATHLAB 08:23
PROVIDERS: PCP Nurse Practitioner; Visit Provider Internal Medicine
PROC: 5A2204Z Restoration of Cardiac Rhythm, Single (ICD-10-PCS; principal; 2025-05-23 12:00)
DX: I48.91 Unspecified atrial fibrillation (principal); I50.31 Acute diastolic (congestive) heart failure; I11.0 Hypertensive heart disease with heart failure; E78.5 Hyperlipidemia, unspecified; G47.33 Obstructive sleep apnea (adult) (pediatric); E66.01 Morbid (severe) obesity due to excess calories; Z68.44 Body mass index [BMI] 60.0-69.9, adult; Z79.01 Long term (current) use of anticoagulants; Z79.899 Other long term (current) drug therapy; Z88.5 Allergy status to narcotic agent; Z82.49 Family history of ischemic heart disease and other diseases of the circulatory system
CPT/HCPCS: 92960; J2003; J2704; J7040